=== PATIENT | male | born 1940 | race Caucasian/White ===

== ENCOUNTER → 2017-08-11 14:10 | Outpatient (CLI) | payer MEDICARE, BC, SELFPAY ==
--- NOTE | 2017-08-11 14:18 | XR_ITS ---
XR hip RT 2-3V w/pelvis HISTORY: ITS.REASON: RT HIP PAIN,RT SIDED LOW BACK PAIN ORDERING PHYSICIAN: Panda Condon MD PATIENT AGE: 77 years FINDINGS: There are moderate osteoarthritic changes of the right hip with decrease in the joint space and osteosclerosis. No fracture or dislocation. There is degenerative disc disease in the lower lumbar spine and lumbosacral junction. IMPRESSION: Osteoarthritis of the right hip. Degenerative disc disease lower lumbar spine
--- NOTE | 2017-08-11 14:18 | XR_ITS ---
EXAM: XR lumbar spine min 4V HISTORY: Low back pain ITS.REASON: RT SIDED HIP PAIN,LOW BACK PAIN W/SCIATICA ORDERING PHYSICIAN: Panda Condon MD PATIENT AGE: 77 years FINDINGS: There is degenerative disc disease at L3-L4 L4-L5 and L5-S1 with reversal of the lower lumbar lordosis. Injury osteophytes are present at those levels as well. Posterior osteophyte noted at L4-L5. Facet arthritic changes at L4-5 and L5-S1. IMPRESSION: Degenerative disc disease with facet arthritic change. There may be canal stenosis at L4-5 which may be better evaluated for with MRI if clinically
== END ==
PROVIDERS: PCP Family Medicine; Visit Provider Family Medicine
DX: M25.551 Pain in right hip (principal); M54.41 Lumbago with sciatica, right side
CPT/HCPCS: 72110; 73502

== ENCOUNTER → 2017-08-20 07:58 | Outpatient (CLI) | payer MEDICARE, BC, SELFPAY ==
--- NOTE | 2017-08-20 08:06 | MR_ITS ---
MR lumbar spine wo con, MR 3-d myelogram/MRCP HISTORY: PT states low back and rt hip and groin pain. Pain initially started back in winter and then flared back up. Gotten worse last 3 weeks. Spinal stenosis suspected from radiograph. ITS.REASON: ACUTE RT-SIDED LOW BACK PAIN, LUMBAR DDD ORDERING PHYSICIAN: Panda Condon MD PATIENT AGE: 77 years Comparison: X-RAY 08/11/17 TECHNIQUE: Standard multiplanar multiecho sequences are performed without contrast. 3-D MIP and myelographic images are also rendered and reviewed FINDINGS: Spinal cord ends at the L1 level. T11-T12: Mild facet hypertrophic change. T12-L1: Mild facet hypertrophic change with mild degenerative disc disease. L1-L2: Bulging disc with moderate facet and ligamentum hypertrophy with transverse canal stenosis causing moderate bilateral lateral recess narrowing and mild bilateral foraminal narrowing. The canal is narrowed to 7 mm transverse. L2-L3: Degenerative disc disease with bulging disc along with small left paracentral disc protrusion. There is severe facet and ligamentum flavum hypertrophy with severe right lateral recess narrowing causing compression and entrapment of the right L3 nerve root entrapment between the facet and ligamentum flavum hypertrophy and the disc best seen on axial image #20. Severe transverse canal stenosis 6 mm. L3-L4: Slight reversal of lumbar lordosis with degenerative disc disease and bulging disc along with moderate to severe facet and ligamentum hypertrophic change with bilateral lateral recess and foraminal narrowing. L4-L5: Severe degenerative disc disease with mild retrolisthesis of L4 of 4 mm with endplate hypertrophic change and bulging disc with moderate bilateral lateral recess and foraminal narrowing slightly greater on the left with borderline canal stenosis. L5-S1: Degenerative disc disease with bulging disc along with facet hypertrophy with moderate bilateral foraminal narrowing slightly greater on the left. No extruded disc herniation or acute fracture. IMPRESSION: Abnormal MRI lumbar spine with multilevel lumbar spondylosis with degenerative disc disease along with bulging disc and facet and ligamentum flavum hypertrophy. This results in varying levels of lateral recess, foraminal narrowing and canal stenosis as described above. Please see above for detailed description at each level. The most severe area of impingement is present at the L2-L3 level with Degenerative disc disease with bulging disc along with small left paracentral disc protrusion. There is severe facet and ligamentum flavum hypertrophy with severe right lateral recess narrowing causing compression and entrapment of the right L3 nerve root entrapment between the facet and ligamentum flavum hypertrophy and the disc best seen on axial image #20. Severe transverse canal stenosis 6 mm.
== END ==
PROVIDERS: Family Provider Family Medicine; PCP Family Medicine; Visit Provider Family Medicine
DX: M54.9 Dorsalgia, unspecified (principal); M51.36 Other intervertebral disc degeneration, lumbar region; M46.96 Unspecified inflammatory spondylopathy, lumbar region
CPT/HCPCS: 72148; 76376

== ENCOUNTER → 2017-08-21 13:50 | Outpatient (CLI) | payer MEDICARE, BC, SELFPAY ==
--- NOTE | 2017-08-21 13:52 | MR_ITS ---
MR hip RT wo con Ordering Physician: Panda Condon MD Patient Age: 77 years: Male HISTORY: ITS.REASON: RIGHT HIP PAIN, OSTEOARTHRITIS OF RIGHT HIP Right hip and right groin pain 3 weeks pain has gotten worse. TECHNIQUE: Multiplanar multisequence imaging of right hip including pelvis performed on 1.5 T MR COMPARISON :Plain films pelvis right hip 08/11/2017 FINDINGS Right hip. Marked arthritic changes right hip. Joint space narrowing right hip. Sclerosis is seen about this narrowed hip joint. Small joint effusion on right more so than left. RIGHT HIP with Unusual structure extending from the margin of the acetabular rim. Suspect this reflects a markedly enlarged, markedly swollen right acetabular labrum which yields nearly 18 mm axial 6.5 mm fingerlikeprotuberance from acetabular rim. & Draping over the subcapital region right femoral neck.. 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 I do not see definitive intraluminal cyst but these can occur in the setting. This likely is secondary to the patient's severe arthritic changes at the right hip. No avascular necrosis. But hip or osseous lesions otherwise. Only minimal reactive changes on both sides of the joint on this MR. No focal destructive nor LEFT HIP:. Only very Mild narrowing of joint space with more normal acetabular labrum is seen on the left hip. Left femoral head and neck are intact. I would expect to see greater signal at there is anterior labral cyst actually developing here. This structure forms a rather diffuse asymmetric area of increased signal Intrauterine labral cyst There appears to be pronounced, marked diffuse wall thickening of the urinary bladder incidentally noted. This requires correlation with urinalysis. Could reflect Bladder wall hypertrophy. Prostate does not appear to be significantly enlarged currently measuring only 4.3 cm transverse dimension.,.. Clinical correlation required. I see the patient had a markedly dilated more homogeneously mildly thickened bladder wall with trabeculation, and prominent enlarged prostate on [address] CT. IMPRESSION. 1. Severity degenerative arthritic changes right hip.-Marked joint space narrowing. Mainly sclerosis with only mild reactive changes about this narrowed right hip joint. No avascular necrosis. Small right hip joint effusion 2.. There is an unusual fingerlike structure extending from the lateral aspect the joint/acetabular rim, at RIGHT HIP- I suspect is most likely a markedly swollen and very enlarged right acetabular labrum- likely reflecting very prominent mucoid degeneration.. (Other chondral or synovial proliferation entities briefly considered but I believe less likely.) Orthopedic follow-up recommended 2. Left hip intact with only very minor arthritic changes. 3. Irregular, markedly thickened urinary bladder wall. Instantly noted 3.
== END ==
PROVIDERS: Family Provider Family Medicine; PCP Family Medicine; Visit Provider Family Medicine
DX: M25.551 Pain in right hip (principal); M16.11 Unilateral primary osteoarthritis, right hip
CPT/HCPCS: 73721

== ENCOUNTER → 2017-08-27 14:31 | Outpatient (POV) | payer MEDICARE, BC, SELFPAY | PROVIDERS: Family Provider Family Medicine; PCP Family Medicine | DX: Z00.00 Encounter for general adult medical examination without abnormal findings (principal) ==

== ENCOUNTER → 2018-02-27 14:47 | Outpatient (CLI) | payer MEDICARE, BC, SELFPAY ==
[2018-02-27 16:28] LABS: Prostate Specific Ag Screen 0.7 ng/mL (0.0-4.0)
== END ==
PROVIDERS: PCP Family Medicine; Visit Provider Urology
DX: Z12.5 Encounter for screening for malignant neoplasm of prostate (principal)
CPT/HCPCS: 36415; G0103

== ENCOUNTER → 2018-04-27 13:46 | Outpatient (POV) | payer MEDICARE, BC, SELFPAY ==
[2018-04-27 14:10] VITALS: BP 136/73; PULSE 82; RESP 18; O2SAT 98
--- NOTE | 2018-04-27 15:49 | HMH.PMCON ---
Assessment and Plan (1) Sacroiliitis Current visit: Yes Status: Chronic Category: Medical Code(s): M46.1 - Sacroiliitis, not elsewhere classified (2) Right hip pain Current visit: Yes Status: Chronic Category: Medical Code(s): M25.551 - Pain in right hip - Assessment and plan all Dx Assessment and Plan for all problems:: Patient will be set up for right SI joint injection right hip injection. I believe that this will be beneficial for the patient. He is currently on Eliquis patient and I discussed potentially doing lumbar injections as well. But we will start with SI joint injections. Dr. Webb has reviewed this note and agrees with this plan of care. This note was dictated using voice recognition software and may contain errors or omissions HPI - Data of Consult Consult date: 04/27/18 Requesting Physician: Clara Pinedo APRN Primary Care Provider: Panda Condon MD - Consult Narrative Reason for consult: Hip pain History of present illness: Mr. Encarnacion is a 77 year old male who presents today for consult in regards to his right hip pain. Patient rates his pain today a 5 out of 10. He had a right hip replacement with some moderate relief of his pain. Patient still has pain that hip joint along with groin pain and low back pain. Patient does have some numbness at times. Patient states rest decreases pain while increased activity increases pain. Patient is tried and failed naproxen, Celebrex. Patient is currently taking gabapentin. And is completed local therapy with moderate relief. Patient did have one injection in his hip prior to his hip replacement. It only helped for 1 month he states. CC: Clara Pinedo APRN [facility] History I have reviewed the patient's past medical history: Yes Medical History: Reports:: Atrial Fibrillation, Coronary Artery Disease, Diabetes Mellitus Type 2 Denies:: Diabetes Mellitus Type 1, Internal Pacemaker, Lung Disease Have you ever received a pneumonia vaccine?: No Other Medical History: Reports: Other Laterality Cases: Right: Total Hip Replacement, Total Knee Replacement Other Surgeries: Yes: Cardiac Catheterization, Other (turb,back, ). No: Pacemaker Amputation: No Fractures: No - *Social History Smoking Status: Never smoker Alcohol Intake: never Occupational Status: other Housing: house Household Members: spouse Travel in the last 8 weeks: None - Psychiatric History Expresses thoughts of harming self/others: None Suicide Plan Description: No Plan *Family Hx:: Unable to obtain Review of Systems - Review of Systems ROS General: no recent weight change, no fever, no sleep disturbances Respiratory: no cough, no shortness of air, no recurring pulmonary infections Cardiovascular/Peripheral Vascular: No chest pain, No palpitations, no edema, no shortness of breath. Gastrointestinal: no incontinence, normal bowel movements reported Genitourinary: no incontinence Musculoskeletal: Right hip pain, right SI joint pain Psychiatric: normal mood/ affect Neurological: [denies weakness in extremities], [denies balance issues] Meds Home Medications Medication Instructions Recorded Confirmed Type Apixaban [Eliquis] 5 mg PO BID 08/01/17 02/10/18 History Atorvastatin Calcium [Atorvastatin 40 mg PO DAILY 08/01/17 02/10/18 History 40mg Tab] Cyanocobalamin (Vitamin B-12) 500 mcg PO DAILY 08/01/17 02/10/18 History [Vitamin B-12] Gabapentin [Gabapentin 300mg Cap] 300 mg PO BID 08/01/17 02/10/18 History Insulin Glargine,Hum.rec.anlog 25 unit SQ BID 08/01/17 02/10/18 History [Lantus Insulin 100units/mL 10mL vial] Insulin Lispro [Humalog] 10 unit SQ ACHS 08/01/17 02/10/18 History Losartan Potassium 100 mg PO DAILY 08/01/17 02/10/18 History Metformin HCl [Fortamet] 1,000 mg PO BID 08/01/17 02/10/18 History Metoprolol Tartrate [Lopressor 25 mg PO BID 08/01/17 02/10/18 History 25mg tablet] Multivitamin [Men's Multi-Vitamin] 1 each
--- NOTE | 2018-04-27 15:52 | P.CONS_ITS ---
Assessment and Plan (1) Sacroiliitis Current visit: Yes Status: Chronic Category: Medical Code(s): M46.1 - Sacroiliitis, not elsewhere classified (2) Right hip pain Current visit: Yes Status: Chronic Category: Medical Code(s): M25.551 - Pain in right hip - Assessment and plan all Dx Assessment and Plan for all problems:: Patient will be set up for right SI joint injection right hip injection. I believe that this will be beneficial for the patient. He is currently on Eliquis patient and I discussed potentially doing lumbar injections as well. But we will start with SI joint injections. Dr. Webb has reviewed this note and agrees with this plan of care. This note was dictated using voice recognition software and may contain errors or omissions HPI - Data of Consult Consult date: 04/27/18 Requesting Physician: Clara Pinedo APRN Primary Care Provider: Panda Condon MD - Consult Narrative Reason for consult: Hip pain History of present illness: Mr. Encarnacion is a 77 year old male who presents today for consult in regards to his right hip pain. Patient rates his pain today a 5 out of 10. He had a right hip replacement with some moderate relief of his pain. Patient still has pain that hip joint along with groin pain and low back pain. Patient does have some numbness at times. Patient states rest decreases pain while increased activity increases pain. Patient is tried and failed naproxen, Celebrex. Patient is currently taking gabapentin. And is completed local therapy with moderate relief. Patient did have one injection in his hip prior to his hip replacement. It only helped for 1 month he states. CC: Clara Pinedo APRN [facility] History I have reviewed the patient's past medical history: Yes Medical History: Reports:: Atrial Fibrillation, Coronary Artery Disease, Diabetes Mellitus Type 2 Denies:: Diabetes Mellitus Type 1, Internal Pacemaker, Lung Disease Have you ever received a pneumonia vaccine?: No Other Medical History: Reports: Other Laterality Cases: Right: Total Hip Replacement, Total Knee Replacement Other Surgeries: Yes: Cardiac Catheterization, Other (turb,back, ). No: Pacemaker Amputation: No Fractures: No - *Social History Smoking Status: Never smoker Alcohol Intake: never Occupational Status: other Housing: house Household Members: spouse Travel in the last 8 weeks: None - Psychiatric History Expresses thoughts of harming self/others: None Suicide Plan Description: No Plan *Family Hx:: Unable to obtain Review of Systems - Review of Systems ROS General: no recent weight change, no fever, no sleep disturbances Respiratory: no cough, no shortness of air, no recurring pulmonary infections Cardiovascular/Peripheral Vascular: No chest pain, No palpitations, no edema, no shortness of breath. Gastrointestinal: no incontinence, normal bowel movements reported Genitourinary: no incontinence Musculoskeletal: Right hip pain, right SI joint pain Psychiatric: normal mood/ affect Neurological: [denies weakness in extremities], [denies balance issues] Meds Home Medications Medication Instructions Recorded Confirmed Type Apixaban [Eliquis] 5 mg PO BID 08/01/17 02/10/18 History Atorvastatin Calcium [Atorvastatin 40 mg PO DAILY 08/01/17 02/10/18 History 40mg Tab] Cyanocobalamin (Vitamin B-12) 500 mcg PO DAILY 08/01/17 02/10/18 History [Vitamin B-12] Gabapentin [Gabapen
== END ==
PROVIDERS: PCP Family Medicine; Visit Provider Clinical Nurse Specialist Family Health
DX: M46.1 Sacroiliitis, not elsewhere classified (principal); M25.551 Pain in right hip
CPT/HCPCS: 99202

== ENCOUNTER → 2018-06-02 10:13 | Outpatient (POV) | payer MEDICARE, BC, SELFPAY ==
[2018-06-02 10:19] VITALS: BP 148/70; PULSE 90; RESP 18; O2SAT 98; BMI 29.5
--- NOTE | 2018-06-02 10:33 | HMH.PAINSOAP ---
[facility] Pain Management SOAP Note Subjective:: Patient is a pleasant 78-year-old white male who presents today for follow-up after an SI joint injection and greater trochanteric bursa injection. Patient states that he is 90% better rating his pain a 2 out of 10. He would like to follow-up on an as-needed basis. Patient states that he is doing much better functionally. ROS General: no recent weight change, no fever, no sleep disturbances Respiratory: no cough, no shortness of air, no recurring pulmonary infections Cardiovascular/Peripheral Vascular: No chest pain, No palpitations, no edema, no shortness of breath. Gastrointestinal: no incontinence, normal bowel movements reported Genitourinary: no incontinence Musculoskeletal: Right hip pain Psychiatric: normal mood/ affect Neurological: [denies weakness in extremities], [denies balance issues] Objective:: Physical Exam General: Alert and oriented x3, no acute distress, pleasant and cooperative, [on room air] Lungs: Resps E/U, Symmetrical chest expansion, Eyes: PERRL Musculoskeletal: Flexion and extension of lumbar spine somewhat guarded secondary to pain, deep tendon reflexes normal, strength in upper and lower extremities [5/5], slightly antalgic gait noted Neurological: speech clear, instrumentation technician equal, no gross sensory deficits Assessment:: Sacroiliitis, bursitis, right hip pain Plan:: We will follow-up with the patient on an as-needed basis. We will reassess his symptoms if he needs them. He has been instructed to call the office if his pain worsens. Dr. Webb has reviewed this note and agrees with this plan of care. This note was dictated using voice recognition software and may contain errors or omissions
--- NOTE | 2018-06-02 10:36 | P.CONS_ITS ---
[facility] Pain Management SOAP Note Subjective:: Patient is a pleasant 78-year-old white male who presents today for follow-up after an SI joint injection and greater trochanteric bursa injection. Patient states that he is 90% better rating his pain a 2 out of 10. He would like to follow-up on an as-needed basis. Patient states that he is doing much better functionally. ROS General: no recent weight change, no fever, no sleep disturbances Respiratory: no cough, no shortness of air, no recurring pulmonary infections Cardiovascular/Peripheral Vascular: No chest pain, No palpitations, no edema, no shortness of breath. Gastrointestinal: no incontinence, normal bowel movements reported Genitourinary: no incontinence Musculoskeletal: Right hip pain Psychiatric: normal mood/ affect Neurological: [denies weakness in extremities], [denies balance issues] Objective:: Physical Exam General: Alert and oriented x3, no acute distress, pleasant and cooperative, [on room air] Lungs: Resps E/U, Symmetrical chest expansion, Eyes: PERRL Musculoskeletal: Flexion and extension of lumbar spine somewhat guarded secondary to pain, deep tendon reflexes normal, strength in upper and lower extremities [5/5], slightly antalgic gait noted Neurological: speech clear, sterilization specialist equal, no gross sensory deficits Assessment:: Sacroiliitis, bursitis, right hip pain Plan:: We will follow-up with the patient on an as-needed basis. We will reassess his symptoms if he needs them. He has been instructed to call the office if his pain worsens. Dr. Webb has reviewed this note and agrees with this plan of care. This note was dictated using voice recognition software and may contain errors or omissions
== END ==
PROVIDERS: PCP Family Medicine; Visit Provider Clinical Nurse Specialist Family Health
DX: M46.1 Sacroiliitis, not elsewhere classified (principal); M25.551 Pain in right hip; M71.9 Bursopathy, unspecified
CPT/HCPCS: 99213

== ENCOUNTER → 2018-08-21 13:25 | Outpatient (CLI) | payer MEDICARE, BC, SELFPAY ==
--- NOTE | 2018-08-21 13:31 | US_ITS ---
US Arterial Ankle Brachial Ind History: Bilateral rest pain, bilateral claudication ORDERING PHYSICIAN: Serafin Grullon PATIENT AGE: 78 years TECHNIQUE: Segmental pressures obtained of both right and left leg. These are compared to brachial blood pressure to yield index at each level sampled including summary RUSS. The data sheets from the procedure are available in PACS FINDINGS Rest study only performed today No prior studies available for comparison. Blood pressures reported are in millimeters mercury. RIGHT LEG RUSS = 1.1. RIGHT LEG TBI=0.7 Brachial BP: 151 Thigh BP: 186 Calf BP: 165 Ankle PT: 166 Ankle DP : 167 Digit =112 LEFT LEG RUSS = 1.0 LEFT LEG TBI= 0.8 Brachial BPD: 147 Thigh BP: 201 Calf BP: 157 Ankle PT:152 Ankle DP: 152 Digit = 118 Pulses and waveforms: Normal IMPRESSION: The ABIs as reported above are within normal limits. Waveforms and pulses are also unremarkable.
== END ==
PROVIDERS: PCP Family Medicine; Visit Provider Podiatrist
DX: I70.213 Atherosclerosis of native arteries of extremities with intermittent claudication, bilateral legs (principal); E11.42 Type 2 diabetes mellitus with diabetic polyneuropathy; Z79.4 Long term (current) use of insulin; Z79.84 Long term (current) use of oral hypoglycemic drugs
CPT/HCPCS: 93922

== ENCOUNTER 2018-12-20 03:25 | Inpatient (IN) ==
[2018-12-20 03:57] LABS: Microscopic, Urine URINE MICROSCOPIC (MICROSCOPIC)
[2018-12-20 04:02] LABS: Appearance,Urine CLEAR (Clear); Bilirubin,Urine Negative (Negative); Blood, Urine Negative (Negative); Color,Urine YELLOW (Yellow); Glucose,Urine (UA) 1+ (Negative); Ketones,Urine Negative (Negative); Leukocyte Esterase,Urine Negative (Negative); Protein,Urine Negative (Negative); Urobilinogen,Urine 0.2 EU/dl (0.2)
[2018-12-20 04:02] LABS: Basophils # 0.1 K/mm3 (0-0.2); Basophils % 0.7 % (0.1-2.0); Eosinophils # 0.8 K/mm3 (0.0-0.4); Eosinophils % 7.9 % (0.1-12.0); Hematocrit 47.9 % (42.0-52.0); Hemoglobin 14.8 g/dL (14.1-18.0); Lymphocytes # 4.2 K/mm3 (0.7-4.5); Mean Corpuscular HGB Conc 30.9 g/dL (31.8-35.4); Mean Corpuscular Volume 101.9 fl (80-94); Mean Platelet Volume 8.9 fl (7.4-10.4); Monocytes # 0.5 K/mm3 (0.1-1.0); Monocytes % 4.5 % (1.7-9.3); Neutrophils % 46.9 % (37.0-80.0); Platelet Count 162 K/mm3 (142-424); Red Cell Distribution Width 13.4 % (11.5-17.5); White Blood Count 10.6 K/mm3 (4.8-10.8)
[2018-12-20 04:07] LABS: WBC,Urine Occasional #/hpf (0-3)
[2018-12-20 04:09] LABS: Amphetamine/Metha Screen,Urine Negative ng/mL (<1000); Barbiturates Screen,Urine Negative ng/mL (<200); Benzodiazepines Screen,Urine Negative ng/mL (<200); Cannabinoid Screen,Urine Negative ng/mL (<50); Cocaine Screen,Urine Negative ng/mL (<300); Methadone Screen,Urine Negative ng/mL (<300); Opiate Screen,Urine Negative ng/mL (<300); Phencyclidine Screen,Urine Negative ng/mL (<25)
[2018-12-20 04:12] LABS: Albumin Level 3.3 gm/dL (3.4-5.0); Anion Gap 16.6 mEq/L (5-15); Bilirubin,Total 0.4 mg/dL (0.2-1.0); Calcium 9.1 mg/dL (8.5-10.1); Globulin 3.3 gm/dl (1.3-3.2); Total Protein,Serum 6.6 gm/dL (6.4-8.2)
--- NOTE | 2018-12-20 04:24 | Emergency Department Note ---
ED Disposition Clinical Impression: Non-STEMI (non-ST elevated myocardial infarction), Renal insufficiency Disposition: Admitted as Observation Condition on Discharge: Serious - Critical Care Critical Care Time: No Attestation: On 12/20/18, the high probability of a clinically significant, sudden or life threatening deterioration of the following system(s) required my full and direct attention, intervention and personal management. The time I documented below is in addition to time spent performing reported procedures but includes the following listed in this critical care notation. Medical Decision Making - Medical Records Medical records reviewed: Yes: I reviewed the patient's medical records. - Néstor Inquiry Pt receiving controlled substance: No Vital Signs: 12/20/18 03:26 12/20/18 06:26 Temperature 97.5 F L Temperature Source Oral Pulse Rate [Left Radial] 83 85 Respiratory Rate 18 20 Blood Pressure [Right Arm] 131/86 107/69 L Blood Pressure Mean [Right Arm] 101 81 Blood Pressure Source [Right Arm] Automatic Cuff Automatic Cuff Blood Pressure Position [Right Arm] Sitting Supine 02 Sat by Pulse Oximetry 95 95 Oxygen Delivery Method Room Air Room Air - Lab Data Lab results reviewed: Yes: I reviewed the patient's lab results. Lab Results 12/20/18 03:45: Urine Color Yellow, Urine Appearance Clear, Urine pH 6.0, Ur Specific [place] 1.010, Urine Protein Negative, Urine Glucose (UA) 1+, Urine Ketones Negative, Urine Blood Negative, Urine Nitrate Negative, Urine Bilirubin Negative, Urine Urobilinogen 0.2, Ur Leukocyte Esterase Negative, Urine WBC Occasional 12/20/18 03:46: WBC 10.6, RBC 4.70, Hgb 14.8, Hct 47.9, MCV 101.9 H, MCH 31.4 H, MCHC 30.9 L, RDW 13.4, Plt Count 162, MPV 8.9, Neut % (Auto) 46.9, Lymph % (Auto) 40.0, [place] % (Auto) 4.5, Eos % (Auto) 7.9, Baso % (Auto) 0.7, Neut # (Auto) 5.0, Lymph # (Auto) 4.2, [place] # (Auto) 0.5, Eos # (Auto) 0.8 H, Baso # (Auto) 0.1 12/20/18 03:46: Sodium 140, Potassium 3.6, Chloride 101, Carbon Dioxide 26, Anion Gap 16.6 H, BUN 20 H, Creatinine 1.50 H, Estimated Creat Clear 56, Estimated GFR 45 L, Est GFR ( Amer) 55 L, Glucose 315 H, Calcium 9.1, Total Bilirubin 0.4, AST 33, ALT 29, Alkaline Phosphatase 119 H, Total Protein 6.6, Albumin 3.3 L, Globulin 3.3 H, Albumin/Globulin Ratio 1.0 L 12/20/18 03:46: Urine Opiates Screen Negative, Urine Methadone Screen Negative, Ur Barbituates Screen Negative, Ur Phencyclidine Scrn Negative, Ur Amphetamines Screen Negative, U Benzodiazepines Scrn Negative, Urine Cocaine Screen Negative, U Marijuana (THC) Screen Negative 12/20/18 03:46: Troponin I 0.16 H 12/20/18 05:38: Troponin I 2.98 H Result diagrams: 12/20/18 03:46 12/20/18 03:46 Orders (Tests/Meds): ED MEDICATIONS Discontinued Medications Generic Name Dose Route Start Last Admin Trade Name Marina PRN Reason Stop Dose Admin Aspirin 324 mg 12/20/18 04:29 12/20/18 04:44 Aspirin 81mg Chewable Tablet PO 12/20/18 04:30 324 mg ONCE ONE Administration Nitroglycerin 1 gm 12/20/18 04:29 12/20/18 04:45 Nitroglycerin 1 Inch Oint Udp TD 12/20/18 04:30 1 gm ONCE ONE Administration ORDERS Category Date Time Status CT head/brain wo con Stat Cat Scan 12/20/18 03:35 Taken Chest XR -- portable [XR chest portable] Stat Exams 12/20/18 04:17 Taken ECG Request by /Constantino Stat Y 12/20/18 03:34 Ordered - Radiology Data #1 Image(s): Chest Image Reviewed: Yes I reviewed the patient's radiology image Preliminary Findings: Abnormal (prob chronic changes ) - ECG Data Tracing #1 Normal Sinus Rhythm: Yes Ischemic changes: non-specific ST-T wave changes Tracing #2 Normal Sinus Rhythm: Yes Ischemic changes: other (septal changes) Tracing #3 Normal Sinus Rhythm: Yes Ischemic changes: other (septal changes ) - Physician Consults Physician Consulted: michael Reason -: Pt condition Additional Consult: suzy Reason -: Admission Chest Pain HPI - General Chief Complaint: Altered Mental Status Stated Complaint: AMS Time Seen by Provider: 12/20/18 03:40 Mode of Arrival: EMS Source of Information: Patient, Spouse, Relative, EMS, Medical Record Limitations: No Limitations Description of Symptoms (Recalled from ER Triage Doc. by RN): states he woke up feeling "funny". He can't explain what that feeling is but he knows he is dif ferent. Denies any issues at this time. "Thinks he is at the hospital." - History of Present Illness HPI narrative: pt awoke about 0230 with chest pain with nausea and diaphoresis - last about 20 min and had near syncope assoc with episode - has hx of a fib and stent about 8 yrs ago MD complaint: chest pain indicative of cardiac Onset (ago): hour(s) Duration: now resolved Activity at onset: during rest Pain location: substernal Severity: severe Quality: heaviness Risk Factors for CAD: Hypertension, Family Hx of CAD Treatments prior to or on arrival for Cardiac Chest Pain: none - SHAYY Score for Non-Stemi Age of Patient: 70-79 years old Heart Rate: 70-89 bpm Systolic Blood Pressure: 120-139 mmhg Serum Creatinine: 1.20-1.59 mg/dl CHF [place] Class: I-No CHF Other Risk Factors: Elevated Cardiac Enzymes or Biomarkers Non-Stemi Risk Score: 142 - Related Data Prior Cardiac Testing/Procedures: Stenting Home Medications Medication Instructions Recorded Confirmed Apixaban [Eliquis] 5 mg PO BID 08/01/17 12/20/18 Atorvastatin Calcium [Atorvastatin 40 mg PO DAILY 08/01/17 12/20/18 40mg Tab] Cyanocobalamin (Vitamin B-12) 500 mcg PO DAILY 08/01/17 12/20/18 [Vitamin B-12] Gabapentin [Gabapentin 300mg Cap] 300 mg PO BID 08/01/17 12/20/18 Insulin Glargine,Hum.rec.anlog 25 unit SQ BID 08/01/17 12/20/18 [Lantus Insulin 100units/mL 10mL vial] Insulin Lispro [Humalog] 10 unit SQ ACHS 08/01/17 12/20/18 Losartan Potassium 100 mg PO DAILY 08/01/17 12/20/18 Metformin HCl [Fortamet] 1,000 mg PO BID 08/01/17 12/20/18 Metoprolol Tartrate [Lopressor 25 mg PO BID 08/01/17 12/20/18 25mg tablet] Multivitamin [Men's Multi-Vitamin] 1 each PO DAILY 08/01/17 12/20/18 Naproxen [Naproxen 500mg tab] 500 mg PO BID 08/01/17 12/20/18 Pantoprazole Sodium [Protonix 40mg 40 mg PO DAILY 08/01/17 12/20/18 tablet] Polyethylene Glycol 3350 [Miralax 17 gm PO DAILY 08/01/17 12/20/18 17gm Packet] Psyllium Husk [Metamucil] 0.4 gm PO DAILY 08/01/17 12/20/18 Allergies Allergy/AdvReac Type Severity Reaction Status Date / Time peanut Allergy Unknown syncope Verified 05/05/18 14:14 [From PEANUTS (FOOD/DRUG)] From PEANUTS (FOOD/DRUG) Allergy Unknown syncope Uncoded 02/10/18 11:09 [facility] History - Hepatitis A Screen Drug use history?: No High risk sexual behaviors?: No History of sexually transmitted infection?: No Currently employed?: No Childcare worker?: No Do you have indoor plumbing?: Yes Do you have electricity?: Yes Attestation statement:: This patient has been screened for Hepatitis A risk factors. I have reviewed the patient's past medical history: Yes Medical History: Reports:: Atrial Fibrillation, Coronary Artery Disease, Diabetes Mellitus Type 2, Hyperlipidemia, Hypertension Denies:: Cancer, Diabetes Mellitus Type 1, Internal Pacemaker, Lung Disease, MRSA, Seizures Other Medical History: Reports: Arthritis, Other Laterality Cases: Right: Total Hip Replacement Other Surgeries: Yes: Cardiac Catheterization, Other (turb,back, ). No: Pacemaker Amputation: No Fractures: No - Social History Smoking Status: Never smoker Alcohol Intake: never Occupational Status: retired Housing: house Household Members: spouse Family Hx:: Unable to obtain ROS Obtained: Yes All systems reviewed & no additional complaints - Constitutional Constitutional: Denies fever(s) - Eyes Eyes: Denies change in vision - ENT Ears, Nose, Mouth, and Throat: Denies sore throat - Cardiovascular Cardiovascular: Reports chest pain, Reports dyspnea, Reports lightheadedness - Respiratory Respiratory: No cough - Gastrointestinal Gastrointestingal: Denies: abdominal pain - Genitourinary Male Genitourinary: Denies hematuria - Musculoskeletal Musculoskeletal: Denies joint pain, Denies joint swelling - Integumentary/Breasts Skin/Breast: Denies rash - Neurologic Neurologic: Reports as per HPI, Reports confusion, Reports dizziness, Denies focal weakness, Denies loss of vision, Denies seizure-like activity, Reports syncope Physical Exam - General General appearance: in no apparent distress - Head Head exam: normocephalic - Eye Eye exam: Present: PERRL, EOMI. Absent: scleral icterus - ENT ENT exam: Present: mucous membranes dry - Neck Neck exam: Present: trachea midline - Respiratory Respiratory exam: Present: normal lung sounds bilaterally. Absent: respiratory distress - Cardiovascular Cardiovascular exam: Present: regular rate, systolic murmur, +S4 - Abdominal Exam Abdominal exam: Present: soft - Extremities Exam Extremities exam: Present: pedal edema. Absent: calf tenderness - Neurological Exam Neurological exam: Present: alert, oriented X3, CN II-XII intact - Psychiatric Psychiatric exam: Present: normal affect - Skin Skin exam: Absent: rash
--- NOTE | 2018-12-20 09:32 | Pharmacy Consult Notes ---
[facility] Pharmacy VTE Monitoring - Patient Demographics Admission date: 12/20/18 Report Date: 12/20/18 Time: 09:32 Allergies/Adverse Reactions: Patient Allergies peanut [From PEANUTS (FOOD/DRUG)] Allergy (Unknown, Verified 12/20/18 07:23) syncope Height: 1.88 m Weight: 102.285 kg Patient Problems: Current Active Problems Non-STEMI (non-ST elevated myocardial infarction) (Acute) Renal insufficiency (Acute) - VTE Risk Labs: VTE Related Lab Results Hgb 14.8 g/dL (14.1-18.0) 12/20/18 03:46 Hct 47.9 % (42.0-52.0) 12/20/18 03:46 Plt Count 162 K/mm3 (142-424) 12/20/18 03:46 BUN 20 mg/dL (7-18) H 12/20/18 03:46 Creatinine 1.50 mg/dL (0.70-1.30) H 12/20/18 03:46 Estimated Creat Clear 56 mL/min (50-200) 12/20/18 03:46 Was VTE Risk Assessment Performed: Yes VTE Score: 4 VTE Risk Level: Low Risk - Prophylaxis VTE Prophylaxis Ordered?: Yes Types of VTE Prophylaxis: TEDS Knee High Location of Applied Device: Bilateral Lower Extremeties - VTE Diagnosis Confirmed Treatment or plan recommended: Continue Current Treatment
--- NOTE | 2018-12-20 11:39 | H&P/Discharge Summary ---
General - General Admission date:: 12/20/18 Discharge date: 12/20/18 *Admission Date: 12/20/18 *Chief complaint: Chest pain *History of present illness: 78 year old male with a history of CAD and DM type 2 presented to [facility] ER overnight complaining of chest pain. Patient was awoken from sleep at 2:30 this morning with substernal chest pain, coughing and diaphoresis. He tried to get out of bed and almost passed out. EMS was called and he was brought to the ER. Pain was alleviated with NTG and morphine in the ER. He states he felt fine when he went to bed last night and has had no recent health problems. 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 He takes [employer] for A. fib [facility] History Medical History: Reports:: Atrial Fibrillation, Cancer (skin cancer), Coronary Artery Disease, Diabetes Mellitus Type 2, Hyperlipidemia, Hypertension Denies:: Diabetes Mellitus Type 1, Internal Pacemaker, Lung Disease, MRSA, Seizures *Have you ever received a pneumonia vaccine?: Yes *Have you received a flu vaccine this season?: No Other Medical History: Reports: Arthritis, Cataracts, Other Laterality Cases: Right: Total Hip Replacement, Total Knee Replacement, Bilateral: Cataract Other Surgeries: Yes: Cardiac Catheterization, Colonoscopy, EGD, Skin Cancer Excision, Other (low back disc surgery, TURP). No: Pacemaker Amputation: No Fractures: No - *Social History Educational Level: Attended College Smoking Status: Former smoker Tobacco Type: cigarettes # Packs/Day (cigarettes): 1 Alcohol Intake: current Alcohol Intake Frequency:: holidays/special occasions only *Occupational Status:: retired Housing: house Household Members: spouse *Travel in the last 8 weeks: None Family Hx:: Coronary Artery Disease, Diabetes, Hypertension, Stroke Review of Systems - Constitutional Denies fever(s) - Eyes Denies blurry vision - ENT Denies bleeding gums - *Cardiovascular Reports chest pain - *Respiratory Reports cough - *Gastrointestinal Denies abdominal pain - *Genitourinary Denies difficulty urinating - *Musculoskeletal Denies joint swelling - Integumentary/Breasts Denies rash - *Neurologic Reports dizziness, Reports fainting, Denies localized weakness, Denies loss of vision, Denies seizure-like activity - Psychiatric Denies irritability - Hematologic/Lymphatic Denies easy bleeding Exam Vital signs and Labs for Last 24 Hours: Temp Pulse Resp BP Pulse Ox 98.3 F 93 H 18 114/74 95 12/20/18 08:00 12/20/18 08:00 12/20/18 08:00 12/20/18 08:00 12/20/18 08:00 Laboratory Results - last 24 hr 12/20/18 03:45: Urine Color Yellow, Urine Appearance Clear, Urine pH 6.0, Ur Specific [place] 1.010, Urine Protein Negative, Urine Glucose (UA) 1+, Urine Ketones Negative, Urine Blood Negative, Urine Nitrate Negative, Urine Bilirubin Negative, Urine Urobilinogen 0.2, Ur Leukocyte Esterase Negative, Urine WBC Occasional 12/20/18 03:46: WBC 10.6, RBC 4.70, Hgb 14.8, Hct 47.9, MCV 101.9 H, MCH 31.4 H, MCHC 30.9 L, RDW 13.4, Plt Count 162, MPV 8.9, Neut % (Auto) 46.9, Lymph % (Auto) 40.0, [place] % (Auto) 4.5, Eos % (Auto) 7.9, Baso % (Auto) 0.7, Neut # (Auto) 5.0, Lymph # (Auto) 4.2, [place] # (Auto) 0.5, Eos # (Auto) 0.8 H, Baso # (Auto) 0.1 12/20/18 03:46: Sodium 140, Potassium 3.6, Chloride 101, Carbon Dioxide 26, Anion Gap 16.6 H, BUN 20 H, Creatinine 1.50 H, Estimated Creat Clear 56, Estimated GFR 45 L, Est GFR ( Amer) 55 L, Glucose 315 H, Calcium 9.1, Total Bilirubin 0.4, AST 33, ALT 29, Alkaline Phosphatase 119 H, Total Protein 6.6, Albumin 3.3 L, Globulin 3.3 H, Albumin/Globulin Ratio 1.0 L 12/20/18 03:46: Urine Opiates Screen Negative, Urine Methadone Screen Negative, Ur Barbituates Screen Negative, Ur Phencyclidine Scrn Negative, Ur Amphetamines Screen Negative, U Benzodiazepines Scrn Negative, Urine Cocaine Screen Negative, U Marijuana (THC) Screen Negative 12/20/18 03:46: Troponin I 0.16 H 09/22/19 05:38: Troponin I 2.98 H 12/20/18 11:07: POC Glucose 177 H Vital Signs - 24 hr 12/20/18 03:26 12/20/18 06:26 12/20/18 07:00 Temperature 97.5 F L Pulse Rate Pulse Rate [Left Radial] 83 85 90 Respiratory Rate 18 20 Blood Pressure Blood Pressure [Right Arm] 131/86 107/69 L 161/80 H 02 Sat by Pulse Oximetry 95 95 97 12/20/18 07:28 12/20/18 07:47 12/20/18 08:00 Temperature 98.0 F 98.3 F Pulse Rate 85 Pulse Rate [Left Radial] 83 93 H Respiratory Rate 19 18 Blood Pressure 158/97 H Blood Pressure [Right Arm] 156/82 H 114/74 02 Sat by Pulse Oximetry 96 95 I & O for Last 24 hours: Intake & Output 12/17/18 12/18/18 12/19/18 12/20/18 23:59 23:59 23:59 23:59 Weight 225 lb 8 oz - Constitutional no acute distress - *Routine HEENT Exam Head: Present: normocephalic Eye: Present: EOMI, PERRL ENT: Present: mucous membranes moist - *Routine Neck Exam Present: supple. Absent: lymphadenopathy - *Routine Respiratory Exam Present: CTA bilaterally - *Routine Cardiovascular Exam Present: RRR - *Routine Abdominal Exam Present: soft, normoactive bowel sounds. Absent: tenderness - *Routine Extremities Exam Absent: cyanosis, clubbing, edema - *Routine Skin Exam Present: warm. Absent: rash - *Routine Neurological Exam Present: alert, oriented X3 Hospital Course Hospital Course: Patient was admitted to [facility] pending a bed being available at [facility]. He was treated with NTG, aspirin and beta blockers for his NSTEMI. He has remained chest pain free. Results Labs on day of discharge: Labs from last 24 hours 12/20/18 12/20/18 12/20/18 11:07 05:38 03:46 WBC RBC Hgb Hct MCV MCH MCHC RDW Plt Count MPV Neut % (Auto) Lymph % (Auto) [place] % (Auto) Eos % (Auto) Baso % (Auto) Neut # (Auto) Lymph # (Auto) [place] # (Auto) Eos # (Auto) Baso # (Auto) Sodium Potassium Chloride Carbon Dioxide Anion Gap BUN Creatinine Estimated Creat Clear Estimated GFR Est GFR ( Amer) Glucose POC Glucose 177 H Calcium Total Bilirubin AST ALT Alkaline Phosphatase Troponin I 2.98 H 0.16 H Total Protein Albumin Globulin Albumin/Globulin Ratio Urine Color Urine Appearance Urine pH Ur Specific [place] Urine Protein Urine Glucose (UA) Urine Ketones Urine Blood Urine Nitrate Urine Bilirubin Urine Urobilinogen Ur Leukocyte Esterase Urine WBC Urine Opiates Screen Urine Methadone Screen Ur Barbituates Screen Ur Phencyclidine Scrn Ur Amphetamines Screen U Benzodiazepines Scrn Urine Cocaine Screen U Marijuana (THC) Screen 12/20/18 12/20/18 12/20/18 03:46 03:46 03:46 WBC 10.6 RBC 4.70 Hgb 14.8 Hct 47.9 MCV 101.9 H MCH 31.4 H MCHC 30.9 L RDW 13.4 Plt Count 162 MPV 8.9 Neut % (Auto) 46.9 Lymph % (Auto) 40.0 [place] % (Auto) 4.5 Eos % (Auto) 7.9 Baso % (Auto) 0.7 Neut # (Auto) 5.0 Lymph # (Auto) 4.2 [place] # (Auto) 0.5 Eos # (Auto) 0.8 H Baso # (Auto) 0.1 Sodium 140 Potassium 3.6 Chloride 101 Carbon Dioxide 26 Anion Gap 16.6 H BUN 20 H Creatinine 1.50 H Estimated Creat Clear 56 Estimated GFR 45 L Est GFR ( Amer) 55 L Glucose 315 H POC Glucose Calcium 9.1 Total Bilirubin 0.4 AST 33 ALT 29 Alkaline Phosphatase 119 H Troponin I Total Protein 6.6 Albumin 3.3 L Globulin 3.3 H Albumin/Globulin Ratio 1.0 L Urine Color Urine Appearance Urine pH Ur Specific [place] Urine Protein Urine Glucose (UA) Urine Ketones Urine Blood Urine Nitrate Urine Bilirubin Urine Urobilinogen Ur Leukocyte Esterase Urine WBC Urine Opiates Screen Negative Urine Methadone Screen Negative Ur Barbituates Screen Negative Ur Phencyclidine Scrn Negative Ur Amphetamines Screen Negative U Benzodiazepines Scrn Negative Urine Cocaine Screen Negative U Marijuana (THC) Screen Negative 12/20/18 03:45 WBC RBC Hgb Hct MCV MCH MCHC RDW Plt Count MPV Neut % (Auto) Lymph % (Auto) [place] % (Auto) Eos % (Auto) Baso % (Auto) Neut # (Auto) Lymph # (Auto) [place] # (Auto) Eos # (Auto) Baso # (Auto) Sodium Potassium Chloride Carbon Dioxide Anion Gap BUN Creatinine Estimated Creat Clear Estimated GFR Est GFR ( Amer) Glucose POC Glucose Calcium Total Bilirubin AST ALT Alkaline Phosphatase Troponin I Total Protein Albumin Globulin Albumin/Globulin Ratio Urine Color Yellow Urine Appearance Clear Urine pH 6.0 Ur Specific [place] 1.010 Urine Protein Negative Urine Glucose (UA) 1+ Urine Ketones Negative Urine Blood Negative Urine Nitrate Negative Urine Bilirubin Negative Urine Urobilinogen 0.2 Ur Leukocyte Esterase Negative Urine WBC Occasional Urine Opiates Screen Urine Methadone Screen Ur Barbituates Screen Ur Phencyclidine Scrn Ur Amphetamines Screen U Benzodiazepines Scrn Urine Cocaine Screen U Marijuana (THC) Screen DS: Diagnosis - Discharge Diagnosis (1) CAD (coronary artery disease) Status: Acute (2) Diabetes type 2, controlled Status: Acute (3) Atrial fibrillation Status: Acute (4) History of CVA (cerebrovascular accident) Status: Acute (5) HTN (hypertension) Status: Acute (6) GERD (gastroesophageal reflux disease) Status: Acute (7) Hyperlipidemia Status: Acute (8) Non-STEMI (non-ST elevated myocardial infarction) Status: Acute (9) Renal insufficiency Status: Acute Discharge Plan - Patient Discharge Instructions ACTIVITY: Continue current activity DIET: continue same diet Patient Instructions: DI for Chest Pain, DI for Heart Attack - Follow up Plan Follow up with: Panda Condon MD [Primary Care Provider] - Disposition: Xfer Short-Term Hosp Home Medications: Home Medications Medication Instructions Recorded Confirmed Type Apixaban [Eliquis] 5 mg PO BID 08/01/17 12/20/18 History Atorvastatin Calcium [Atorvastatin 40 mg PO HS 08/01/17 12/20/18 History 40mg Tab] Cyanocobalamin (Vitamin B-12) 500 mcg PO DAILY 08/01/17 12/20/18 History [Vitamin B-12] Gabapentin [Gabapentin 300mg Cap] 300 mg PO BID 08/01/17 12/20/18 History Insulin Glargine,Hum.rec.anlog 25 unit SQ BID 08/01/17 12/20/18 History [Lantus Insulin 100units/mL 10mL vial] Insulin Lispro [Humalog] 10 unit SQ AC 08/01/17 12/20/18 History Metoprolol Tartrate [Lopressor 25 mg PO BID 08/01/17 12/20/18 History 25mg tablet] Naproxen [Naproxen 500mg tab] 500 mg PO BID 08/01/17 12/20/18 History Pantoprazole Sodium [Protonix 40mg 40 mg PO DAILY 08/01/17 12/20/18 History tablet] Polyethylene Glycol 3350 [Miralax 17 gm PO DAILYP PRN 08/01/17 12/20/18 History 17gm Packet] Psyllium Husk [Metamucil] 0.4 gm PO DAILYP PRN 08/01/17 12/20/18 History Cholecalciferol (Vitamin D3) 5,000 unit PO DAILY 12/20/18 12/20/18 History [Vitamin D3] Losartan Potassium 100 mg PO DAILY 12/20/18 12/20/18 History Metformin HCl [Metformin 1000mg 1,000 mg PO BID 12/20/18 12/20/18 History Tablets] Multivitamin [Multivitamins] 1 each PO DAILY 12/20/18 12/20/18 History Prescriptions/Medication Reconciliation: Continued Metoprolol Tartrate [Lopressor 25mg tablet] 25 mg PO BID Psyllium Husk [Metamucil] 0.4 gm PO DAILYP PRN PRN Reason: Constipation Polyethylene Glycol 3350 [Miralax 17gm Packet] 17 gm PO DAILYP PRN PRN Reason: Constipation Naproxen [Naproxen 500mg tab] 500 mg PO BID Insulin Lispro [Humalog] 10 unit SQ AC Insulin Glargine,Hum.rec.anlog [Lantus Insulin 100units/mL 10mL vial] 25 unit SQ BID Gabapentin [Gabapentin 300mg Cap] 300 mg PO BID Cyanocobalamin (Vitamin B-12) [Vitamin B-12] 500 mcg PO DAILY Atorvastatin Calcium [Atorvastatin 40mg Tab] 40 mg PO HS Apixaban [Eliquis] 5 mg PO BID Multivitamin [Multivitamins] 1 each PO DAILY Losartan Potassium 100 mg PO DAILY Metformin HCl [Metformin 1000mg Tablets] 1,000 mg PO BID Cholecalciferol (Vitamin D3) [Vitamin D3] 5,000 unit PO DAILY Pantoprazole Sodium [Protonix 40mg tablet] 40 mg PO DAILY - Problem Reconciliation Problems Reviewed?: Yes
--- NOTE | 2018-12-20 15:35 | Electrocardiograph Report ---
APPROVED REPORT Exam: Resting ECG HR:89 bpm ECG Measurements Heart Rate 89 AXES MS 200 P 71 QRSd 118 QRS -52 QT 378 T87 QTc 459 <Conclusion> Sinus rhythm with sinus arrhythmia with frequent premature ventricular complexes Left anterior fascicular block Left ventricular hypertrophy with QRS widening Cannot rule out Septal infarct, age undetermined Abnormal ECG Electronically signed by : Jon Perez, 12/20/2018 15:35:11
--- NOTE | 2018-12-20 15:35 | Electrocardiograph Report ---
APPROVED REPORT Exam: Resting ECG HR:91 bpm ECG Measurements Heart Rate 91 AXES MT 174 P 57 QRSd 118 QRS -51 QT 382 T60 QTc 469 <Conclusion> Sinus rhythm with occasional premature ventricular complexes Left anterior fascicular block Left ventricular hypertrophy with QRS widening Abnormal ECG Electronically signed by : Jon Perez, 12/20/2018 15:35:29
--- NOTE | 2018-12-20 15:35 | Electrocardiograph Report ---
APPROVED REPORT Exam: Resting ECG HR:85 bpm ECG Measurements Heart Rate 85 AXES [place] 174 P 51 QRSd 130 QRS -47 QT 414 T73 QTc 492 <Conclusion> Sinus rhythm with premature atrial complexes with aberrant conduction Left axis deviation Left ventricular hypertrophy with QRS widening and repolarization abnormality Abnormal ECG Electronically signed by : Jon Perez, 12/20/2018 15:35:35
[2018-12-21 03:56] LABS: Basophils % 0.3 % (0.1-2.0); Eosinophils # 0.7 K/mm3 (0.0-0.4); Eosinophils % 6.9 % (0.1-12.0); Hematocrit 39.4 % (42.0-52.0); Lymphocytes # 1.9 K/mm3 (0.7-4.5); Lymphocytes % 19.8 % (10-50); Mean Corpuscular Volume 98.1 fl (80-94); Mean Platelet Volume 8.8 fl (7.4-10.4); Monocytes # 0.5 K/mm3 (0.1-1.0); Monocytes % 5.3 % (1.7-9.3); Neutrophils # 6.4 K/mm3 (1.8-7.8); Neutrophils % 67.6 % (37.0-80.0); Platelet Count 123 K/mm3 (142-424); Red Blood Count 4.02 M/mm3 (4.60-6.20); Red Cell Distribution Width 13.5 % (11.5-17.5); White Blood Count 9.4 K/mm3 (4.8-10.8)
[2018-12-21 03:58] LABS: Calcium 8.4 mg/dL (8.5-10.1)
[2018-12-21 04:09] LABS: Hemoglobin 12.6 g/dL (14.1-18.0)
--- NOTE | 2018-12-21 08:18 | Pharmacy Consult Notes ---
[facility] Pharmacy Heparin Dosing - Demographic Data Admission date:: 12/20/18 Date: 12/21/18 Time: 08:15 Allergies/Adverse Reactions: Allergies Allergy/AdvReac Type Severity Reaction Status Date / Time peanut Allergy Unknown syncope Verified 12/20/18 07:23 [From PEANUTS (FOOD/DRUG)] Height: 1.88 m Weight: 104.355 kg - Indication Medication therapy:: Heparin Patient Problems: Current Active Problems Non-STEMI (non-ST elevated myocardial infarction) (Acute) Renal insufficiency (Acute) CAD (coronary artery disease) (Acute) Diabetes type 2, controlled (Acute) Atrial fibrillation (Acute) History of CVA (cerebrovascular accident) (Acute) HTN (hypertension) (Acute) GERD (gastroesophageal reflux disease) (Acute) Hyperlipidemia (Acute) CVA?: No Bleeding problem?: No Kidney disease?: No W[place]?: Yes Desired PTT range:: 60-80 seconds - Labs Anticoagulation Lab Results:: 12/21/18 03:41 Hgb 12.6 L D Hct 39.4 L Plt Count 123 L - Monitoring Dose Monitor 1 Date: 12/20/18 Time: 13:40 PTT Result:: 26.4 Infusion Rate:: 20 ML/HR (1000 UNITS/HR) HEPARIN 4000 UNIT BOLUS Dose Monitor 2 Date: 12/20/18 Time: 20:15 PTT Result:: 42.7 Infusion Rate:: 24 ML/HR (1200 UNITS/HR) HEPARIN BOLUS 4000 UNITS Dose Monitor 3 Date: 12/21/18 Time: 03:41 PTT Result:: 87.2 Infusion Rate:: RATE WAS DECREASED TO 22 ML/HR (1100 UNITS/HR) - Core Measures Is INR > or = 2 at discharge?: No Most Recent Labs:: Laboratory Results - last 24 hr 12/20/18 11:07: POC Glucose 177 H 12/20/18 13:40: APTT 26.4 12/20/18 16:09: POC Glucose 175 H 12/20/18 20:06: POC Glucose 138 H 12/20/18 20:15: APTT 42.7 H D 12/21/18 03:41: WBC 9.4, RBC 4.02 L, Hgb 12.6 L D, Hct 39.4 L, MCV 98.1 H, MCH 31.4 H, MCHC 32.0, RDW 13.5, Plt Count 123 L, MPV 8.8, Neut % (Auto) 67.6, Lymph % (Auto) 19.8, [place] % (Auto) 5.3, Eos % (Auto) 6.9, Baso % (Auto) 0.3, Neut # (Auto) 6.4, Lymph # (Auto) 1.9, [place] # (Auto) 0.5, Eos # (Auto) 0.7 H, Baso # (Auto) 0.0 12/21/18 03:41: Sodium 141, Potassium 4.0, Chloride 106, Carbon Dioxide 28, Anion Gap 11.0, BUN 18, Creatinine 0.95 D, Estimated Creat Clear 87, Estimated GFR 76, Est GFR ( Amer) 93 D, Glucose 157 H D, Calcium 8.4 L 12/21/18 03:41: APTT 87.2 H* D 12/21/18 05:46: POC Glucose 154 H Were Heparin and Warfarin started on the same day?: No If not, why?: PATIENT TRANSFERRED TO [facility]
--- NOTE | 2018-12-21 09:19 | Progress Note ---
Internal Medicine - PN: Subj *Date: 12/21/18 *Time: 09:17 Interval history: Patient was stable overnight, [facility] called with a bed early this morning. Exam Vital signs and Labs for Last 24 Hours: Temp Pulse Resp BP Pulse Ox 98.2 F 94 H 19 155/90 H 97 12/21/18 08:00 12/21/18 08:00 12/21/18 08:00 12/21/18 08:00 12/21/18 08:00 Laboratory Results - last 24 hr 12/20/18 11:07: POC Glucose 177 H 12/20/18 13:40: APTT 26.4 12/20/18 16:09: POC Glucose 175 H 12/20/18 20:06: POC Glucose 138 H 12/20/18 20:15: APTT 42.7 H D 12/21/18 03:41: WBC 9.4, RBC 4.02 L, Hgb 12.6 L D, Hct 39.4 L, MCV 98.1 H, MCH 31.4 H, MCHC 32.0, RDW 13.5, Plt Count 123 L, MPV 8.8, Neut % (Auto) 67.6, Lymph % (Auto) 19.8, [place] % (Auto) 5.3, Eos % (Auto) 6.9, Baso % (Auto) 0.3, Neut # (Auto) 6.4, Lymph # (Auto) 1.9, [place] # (Auto) 0.5, Eos # (Auto) 0.7 H, Baso # (Auto) 0.0 12/21/18 03:41: Sodium 141, Potassium 4.0, Chloride 106, Carbon Dioxide 28, Anion Gap 11.0, BUN 18, Creatinine 0.95 D, Estimated Creat Clear 87, Estimated GFR 76, Est GFR ( Amer) 93 D, Glucose 157 H D, Calcium 8.4 L 12/21/18 03:41: APTT 87.2 H* D 12/21/18 05:46: POC Glucose 154 H Vital Signs - 24 hr 12/20/18 10:00 12/20/18 11:00 12/20/18 12:00 Temperature Pulse Rate 84 Pulse Rate [Apical] Pulse Rate [Left Radial] 77 70 84 Respiratory Rate 20 18 16 Blood Pressure [Right Arm] 141/83 H 121/74 144/90 H 02 Sat by Pulse Oximetry 96 98 98 12/20/18 13:00 12/20/18 14:00 12/20/18 15:00 Temperature Pulse Rate Pulse Rate [Apical] Pulse Rate [Left Radial] 86 88 87 Respiratory Rate 18 16 16 Blood Pressure [Right Arm] 147/81 H 151/74 H 156/86 H 02 Sat by Pulse Oximetry 97 96 95 12/20/18 16:00 12/20/18 17:00 12/20/18 18:00 Temperature 98.3 F Pulse Rate 90 Pulse Rate [Apical] Pulse Rate [Left Radial] 84 95 H 80 Respiratory Rate 19 18 18 Blood Pressure [Right Arm] 161/95 H 131/73 138/88 02 Sat by Pulse Oximetry 94 L 96 97 12/20/18 20:00 12/20/18 22:00 12/21/18 00:00 Temperature 98.3 F 98.5 F Pulse Rate 86 76 Pulse Rate [Apical] Pulse Rate [Left Radial] 89 72 82 Respiratory Rate 18 18 14 Blood Pressure [Right Arm] 171/92 H 137/67 119/55 L 02 Sat by Pulse Oximetry 95 92 L 93 L 12/21/18 02:00 12/21/18 04:00 12/21/18 06:00 Temperature 98.1 F Pulse Rate 79 Pulse Rate [Apical] Pulse Rate [Left Radial] 70 84 77 Respiratory Rate 14 16 14 Blood Pressure [Right Arm] 134/74 141/85 H 133/73 02 Sat by Pulse Oximetry 92 L 93 L 92 L 12/21/18 08:00 Temperature 98.2 F Pulse Rate Pulse Rate [Apical] 94 H Pulse Rate [Left Radial] Respiratory Rate 19 Blood Pressure [Right Arm] 155/90 H 02 Sat by Pulse Oximetry 97 I & O for Last 24 hours: Intake & Output 12/18/18 12/19/18 12/20/18 12/21/18 23:59 23:59 23:59 23:59 Intake Total 859 / 859 908 / 908 Output Total 600 / 950 850 / 850 Balance 259 / -91 58 / 58 Weight 225 lb 8 oz 230 lb 1.014 oz Assessment and Plan (1) CAD (coronary artery disease) Status: Acute Category: Medical Code(s): I25.10 - Atherosclerotic heart disease of [place] coronary artery without angina pectoris (2) Diabetes type 2, controlled Status: Acute Category: Medical Code(s): E11.9 - Type 2 diabetes mellitus without complications (3) Atrial fibrillation Status: Acute Category: Medical Code(s): I48.91 - Unspecified atrial fibrillation (4) History of CVA (cerebrovascular accident) Status: Acute Category: Medical Code(s): Z86.73 - Personal history of transient ischemic attack (TIA), and cerebral infarction without residual deficits (5) HTN (hypertension) Status: Acute Category: Medical Code(s): I10 - Essential (primary) hypertension (6) GERD (gastroesophageal reflux disease) Status: Acute Category: Medical Code(s): K21.9 - Gastro-esophageal reflux disease without esophagitis (7) Hyperlipidemia Status: Acute Category: Medical Code(s): E78.5 - Hyperlipidemia, unspecified (8) Non-STEMI (non-ST elevated myocardial infarction) Status: Acute Category: Medical Code(s): I21.4 - Non-ST elevation (NSTEMI) myocardial infarction (9) Renal insufficiency Status: Acute Category: Medical Code(s): N28.9 - Disorder of kidney and ureter, unspecified - Assessment and plan all Dx Assessment and Plan for all problems:: Continue Heparine drip, transfered to [facility] this morning.
== END 2018-12-21 08:40 | disposition short-term general hospital (02) | DRG 282 ==
LOC: ER 03:25 → 2ND 03:25 → OBSVTOIN 06:59 → 2ND 07:49
PROVIDERS: ADMIT Family Medicine; ATTEND Family Medicine
CPT/HCPCS: J2405

== ENCOUNTER → 2019-02-09 13:55 | Outpatient (CLI) | payer MEDICARE, BC, SELFPAY ==
[2019-02-09 17:27] LABS: Prostate Specific Ag, Diagnost 0.77 ng/mL (0.0-4.0)
== END ==
PROVIDERS: Visit Provider Urology
DX: N40.0 Benign prostatic hyperplasia without lower urinary tract symptoms (principal)
CPT/HCPCS: 36415; 84153

== ENCOUNTER → 2019-06-01 14:18 | Outpatient (CLI) | payer MEDICARE, BC, SELFPAY ==
--- NOTE | 2019-06-01 14:25 | XR_ITS ---
PROCEDURE: XR CERVICAL SPINE 5V CLINICAL INDICATION: LT ARM PAIN Left arm pain and numbness COMPARISON: No exams were available for comparison FINDINGS: Degenerative disc disease is present from C3 to C7 most extensive at C3-C4 and C5-C6. There is slight reversal of the upper cervical lordosis. Incidental nuchal ligament calcification noted. There is some uncovertebral and facet hypertrophy with mild right-sided foraminal narrowing at C4-C5 and C5-C6 and moderate left-sided foraminal narrowing at C3-C4 and C4-C5 with mild foraminal narrowing on the left at C6-C7. No fracture or dislocation. No lytic or blastic change. Facet arthritic changes are present from C3-C7. Incidental vascular calcifications are noted. IMPRESSION: Cervical spondylosis with degenerative disc disease and facet arthritic change as described above with bilateral foraminal narrowing. Please see above for details. Reversal cervical lordosis which could be due to patient positioning or muscle spasm Dictated by: Young Fragoso MD 06/01/2019 15:11 Electronically signed by Young Fragoso MD in [place] 06/01/2019 15:11
== END ==
PROVIDERS: PCP Family Medicine; Visit Provider Family Medicine
DX: M79.602 Pain in left arm (principal)
CPT/HCPCS: 72050

== ENCOUNTER → 2019-06-18 16:26 | Outpatient (CLI) | payer MEDICARE, BC, SELFPAY ==
--- NOTE | 2019-06-18 16:37 | XR_ITS ---
PROCEDURE: XR FOOT RT MIN 3V CLINICAL INDICATION: INJURY COW STOMPED ON FOOT Posttraumatic pain COMPARISON: No exams were available for comparison FINDINGS: No fracture or dislocation. No lytic or blastic change. There is normal mineralization. Mild osteoarthritic changes are present at the talonavicular and cuneiform metatarsal junction Other findings:Generalized vascular calcification IMPRESSION: Mild osteoarthritic change, no acute finding Dictated by: Young Fragoso MD 06/18/2019 17:18 Electronically signed by Young Fragoso MD in [place] 06/18/2019 17:18
== END ==
PROVIDERS: PCP Family Medicine; Visit Provider Family Medicine
DX: M79.671 Pain in right foot (principal)
CPT/HCPCS: 73630

== ENCOUNTER → 2019-07-30 07:52 | Outpatient (CLI) | payer MEDICARE, BC, SELFPAY ==
--- NOTE | 2019-07-30 08:00 | MR_ITS ---
PROCEDURE: MR CERVICAL SPINE WO CON CLINICAL INDICATION: PAIN IN LEFT ARM, CERVICAL DISC DISEASE Bilateral arm and hand pain and numbness left side worse than right, cervical spondylosis COMPARISON: XR CERVICAL SPINE 5V from 06/01/2019 TECHNIQUE: Standard multiplanar multiecho sequences are performed without contrast. 3-D MIP and myelographic images are also rendered and reviewed FINDINGS: There is normal alignment. Cranial cervical junction has an unremarkable appearance. There is mild diffuse increased T2 signal within the lore[place] and may be due to ischemic gliotic change from microvascular disease. There is straightening of the cervical lordosis. C2-C3: Unremarkable. C3-C4: Degenerative disc disease with bulging disc. There is endplate hypertrophic change with a broad-based central left paracentral and foraminal disc osteophyte complex along with uncovertebral and facet hypertrophy with resultant severe left lateral recess and foraminal narrowing. There is mild impingement upon the anterior left aspect of the cord with mild contour deformity of the cord on the left anteriorly. C4-C5: Degenerate disc disease with mild uncovertebral hypertrophy and mild bilateral foraminal narrowing. C5-C6: Degenerate disc disease. There is loss of disc space. C6-C7: Degenerate disc disease with mild bulging disc along with bilateral foraminal narrowing from uncovertebral hypertrophy. C7-T1: Mild left foraminal narrowing from facet and uncovertebral hypertrophy. T1-T2: Degenerate disc disease with mild bulging disc. IMPRESSION: 1. Multilevel cervical spondylosis with bulging disc along with facet and uncovertebral hypertrophy as detailed above. Please see above for detailed description at each level. 2. Degenerative disc disease at C3-C4 with bulging disc. There is endplate hypertrophic change with a broad-based central left paracentral and foraminal disc osteophyte complex along with uncovertebral and facet hypertrophy with resultant severe left lateral recess and foraminal narrowing. There is mild impingement upon the anterior left aspect of the cord with mild contour deformity of the cord on the left anteriorly. 3. No extruded herniated disc or bony canal stenosis Dictated by: Young Fragoso MD 07/31/2019 11:31 Electronically signed by Young Fragoso MD in [place] 07/31/2019 11:31
== END ==
PROVIDERS: PCP Family Medicine; Visit Provider Family Medicine
DX: M79.602 Pain in left arm (principal); M50.90 Cervical disc disorder, unspecified, unspecified cervical region
CPT/HCPCS: 72141; 76376

== ENCOUNTER → 2019-08-25 13:30 | Outpatient (POV) | payer MEDICARE, BC, SELFPAY | DX: Z00.00 Encounter for general adult medical examination without abnormal findings (principal) ==

== ENCOUNTER → 2019-11-15 08:34 | Outpatient (POV) | payer MEDICARE, BC, SELFPAY ==
[2019-11-15 08:53] VITALS: BP 133/78; PULSE 75; RESP 18; O2SAT 99; BMI 31.1
--- NOTE | 2019-11-15 09:02 | P.CONS_ITS ---
[facility] Pain Management SOAP Note Subjective:: Is a pleasant 79-year-old white male who presents today for follow-up. Patient was last seen in May 2018. Patient had a right SI joint injection right hip injection. Patient had 90% relief of his symptomology for over 3 months. Patient's pain is beginning to return he rates it a 5 out of 10 when he is not doing anything. He states it can get up to a 9 out of 10 when he is working. Patient is interested in additional injective therapy. He has had a defibrillator placed since his last visit. He is on blood thinners. ROS General: no recent weight change, no fever, no sleep disturbances Respiratory: no cough, no shortness of air, no recurring pulmonary infections Cardiovascular/Peripheral Vascular: No chest pain, No palpitations, no edema, no shortness of breath. Gastrointestinal: no new onset incontinence, normal bowel movements reported Genitourinary: no new onset incontinence Musculoskeletal: Right hip pain Psychiatric: normal mood/ affect Neurological: [denies new onset weakness in extremities], [denies new onset balance issues] Objective:: Physical Exam General: Alert and oriented x3, no acute distress, pleasant and cooperative, [on room air] Lungs: Resps E/U, Symmetrical chest expansion, Eyes: PERRL Musculoskeletal: Flexion and extension of lumbar spine somewhat guarded secondary to pain, deep tendon reflexes normal, strength in upper and lower extremities [5/5], [abnormal gait noted] Antolin test SI joint compression test and Anna's test on the right side, extreme tenderness over right hip Neurological: speech clear, board hammer operator equal, no gross sensory deficits Assessment:: Sacroiliitis, right hip pain Plan:: We will set him up for right intra-articular hip injection along with a right SI joint injection. Given the efficacy of this in the past I do believe it would benefit him. I will follow-up with him afterwards reassess his symptoms at that time he has been instructed to call the office if he has any issues prior to his next appointment. Dr. Webb has reviewed this note and agrees with this plan of care. This note was dictated using voice recognition software and may contain errors or omissions [facility] History I have reviewed the patient's past medical history: Yes Medical History: Reports:: Atrial Fibrillation, Cancer, Coronary Artery Disease, Diabetes Mellitus Type 2, Hyperlipidemia, Hypertension, Myocardial Infarction Denies:: Diabetes Mellitus Type 1, Internal Pacemaker, Lung Disease, MRSA, Seizures *Have you ever received a pneumonia vaccine?: Yes *Have you received a flu vaccine this season?: Yes Other Medical History: Reports: Arthritis, Cataracts, Other Laterality Cases: Right: Total Hip Replacement Other Surgeries: Yes: Cardiac Catheterization, Colonoscopy, Coronary Stent, EGD, Skin Cancer Excision, Other (low back disc surgery, TURP). No: Pacemaker Amputation: No Fractures: No - *Social History Smoking Status: Former smoker Tobacco Type: cigarettes # Packs/Day (cigarettes): 1 Alcohol Intake: current Alcohol Intake Frequency:: holidays/special occasions only Substance Use Type: denies use *Occupational Status:: other Housing: house Household Members: spouse *Travel in the last 8 weeks: None Family Hx:: Coronary Artery Disease, Diabetes, Hypertension, Stroke
== END ==
PROVIDERS: PCP Family Medicine; Visit Provider Clinical Nurse Specialist Family Health
DX: M46.1 Sacroiliitis, not elsewhere classified (principal); M25.551 Pain in right hip
CPT/HCPCS: 99212

== ENCOUNTER 2019-11-19 14:01 | Day surgery (SDC) | payer MEDICARE, BC, SELFPAY ==
[2019-11-19 14:25] VITALS: BP 188/84; PULSE 74; RESP 18; TEMP 36.4; O2SAT 95; BMI 31.1
[2019-11-19 14:44] LABS: POC Glucose,Bedside 157 (70-110)
[2019-11-19 14:49] VITALS: BP 142/78; PULSE 74; RESP 18
[2019-11-19 14:50] VITALS: BP 149/75; PULSE 84; RESP 18; O2SAT 98
--- NOTE | 2019-11-19 14:51 | HMH.PMPROC ---
- Procedure Date: 11/19/19 Time: 14:52 Anesthesiologist:: Bryan Webb MD Complications:: None Pre-procedure Diagnosis:: Sacroiliitis and right hip pain Post-procedure Diagnosis:: Same Indications for Procedure:: This patient is a pleasant 79-year-old white male who we have been treating for right-sided hip pain. He is done well with previous SI joint injections. He is tender over his right SI joint again today. He got 90% relief for 3 months at his last injection. Pain is starting to return. He is positive Anna's test on the right side. He is positive Antolin test on the right side. He has a positive SI joint compression test on the right side. We will do a right SI joint injection under fluoroscopy today to help him with his pain symptoms. He is also had right side total hip arthroplasty. He still having some pain in his joint. We will do a right hip intra-articular injection to help him with his pain symptoms in his right hip joint. Procedure Details:: Right SI joint injection under fluoroscopy Informed consent was obtained and the risks and benefits of the procedure was going to the patient. Patient was taken to the procedure room. Patient was placed prone on the procedure table. The right hip was prepped using ChloraPrep. The skin and subcutaneous tissues were anesthetized using lidocaine. I placed a 22-gauge spinal needle into the inferior aspect of the right SI joint. Needle placement was confirmed with dye. After this we injected 5 mL bupivacaine 0.25% and Depo-Medrol 40 mg into the right SI joint. The patient tolerated the procedure well with no complication. Right hip joint was viewed. There is no abnormality seen. A 22-gauge spinal needle was inserted adjacent to the right hip joint. We injected dye to confirm needle placement. We then injected 5 mL bupivacaine 0.25% and Depo-Medrol 40 mg into that area. Patient tolerated procedure well with no complications. Plan and Disposition:: We will follow-up with him in 2 weeks. Will reevaluate symptoms at that time. I am not exactly sure that pain is coming from the right hip joint as he is already had total hip arthroplasty. I believe he has significant pain from his right SI joint as well as from his low back.
[2019-11-19 15:03] VITALS: BP 188/79; PULSE 75; RESP 20; O2SAT 95
== END 2019-11-19 15:04 | disposition home or self-care (01) ==
LOC: SC.PAINP 14:02
PROVIDERS: PCP Family Medicine; Visit Provider Anesthesiology
DX: M46.1 Sacroiliitis, not elsewhere classified (principal); I25.10 Atherosclerotic heart disease of native coronary artery without angina pectoris; I10 Essential (primary) hypertension; E11.9 Type 2 diabetes mellitus without complications; Z95.0 Presence of cardiac pacemaker; I25.2 Old myocardial infarction; J44.9 Chronic obstructive pulmonary disease, unspecified; E78.5 Hyperlipidemia, unspecified; K21.9 Gastro-esophageal reflux disease without esophagitis; N28.9 Disorder of kidney and ureter, unspecified; Z95.818 Presence of other cardiac implants and grafts; Z96.649 Presence of unspecified artificial hip joint
CPT/HCPCS: 27096; 82962; G0260; J1030; Q9966

== ENCOUNTER → 2019-12-13 10:08 | Outpatient (POV) | payer MEDICARE, BC, SELFPAY ==
--- NOTE | 2019-12-13 10:33 | HMH.PAINSOAP ---
[facility] Pain Management SOAP Note Subjective:: Patient is a pleasant 79-year-old white male who presents today for follow-up after his right SI joint injection. He gets 3 months relief with his SI joint injections. Patient has 80% relief of his symptomology he rates his pain a 2 out of 10 today. We briefly talked about a corner lock procedure. At this time he is too busy for this. 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 He has had a right hip arthroplasty he does have pain in this joint. ROS General: no recent weight change, no fever, no sleep disturbances Respiratory: no cough, no shortness of air, no recurring pulmonary infections Cardiovascular/Peripheral Vascular: No chest pain, No palpitations, no edema, no shortness of breath. Gastrointestinal: no new onset incontinence, normal bowel movements reported Genitourinary: no new onset incontinence Musculoskeletal: Right hip and SI joint pain Psychiatric: normal mood/ affect Neurological: [denies new onset weakness in extremities], [denies new onset balance issues] Objective:: Physical Exam General: Alert and oriented x3, no acute distress, pleasant and cooperative, [on room air] Lungs: Resps E/U, Symmetrical chest expansion, Eyes: PERRL Musculoskeletal: Flexion and extension of lumbar spine somewhat guarded secondary to pain, deep tendon reflexes normal, strength in upper and lower extremities [5/5], [abnormal gait noted] Neurological: speech clear, lease purchase driver equal, no gross sensory deficits Assessment:: Sacroiliitis and right hip pain Plan:: We will give the patient information on the corner lock procedure. Patient is going to call us if his pain begins to return. Dr. Webb has reviewed this note and agrees with this plan of care. This note was dictated using voice recognition software and may contain errors or omissions [facility] History I have reviewed the patient's past medical history: Yes Medical History: Reports:: Atrial Fibrillation, Coronary Artery Disease, Diabetes Mellitus Type 2, Hyperlipidemia, Hypertension, Myocardial Infarction Denies:: Cancer, Diabetes Mellitus Type 1, Internal Pacemaker, Lung Disease, MRSA, Seizures *Have you ever received a pneumonia vaccine?: No *Have you received a flu vaccine this season?: No Other Medical History: Reports: Arthritis, Cataracts, Other Laterality Cases: Right: Total Hip Replacement Other Surgeries: Yes: Cardiac Catheterization, Colonoscopy, Coronary Stent, EGD, Skin Cancer Excision, Other (low back disc surgery, TURP). No: Pacemaker Amputation: No Fractures: No - *Social History Smoking Status: Former smoker Tobacco Type: cigarettes # Packs/Day (cigarettes): 1 Alcohol Intake: never Alcohol Intake Frequency:: holidays/special occasions only Substance Use Type: denies use *Occupational Status:: retired Housing: house Household Members: spouse *Travel in the last 8 weeks: None Family Hx:: Coronary Artery Disease, Diabetes, Hypertension, Stroke
[2019-12-13 10:36] VITALS: BP 174/71; PULSE 74; RESP 18; O2SAT 98; BMI 31.1
== END ==
PROVIDERS: PCP Family Medicine; Visit Provider Clinical Nurse Specialist Family Health
DX: M46.1 Sacroiliitis, not elsewhere classified (principal); M25.551 Pain in right hip
CPT/HCPCS: 99212

== ENCOUNTER → 2020-01-11 12:51 | Outpatient (CLI) | payer MEDICARE, BC, SELFPAY ==
--- NOTE | 2020-01-11 13:02 | CA_ITS ---
APPROVED REPORT EXAM: Comprehensive 2D, Doppler, and color-flow Echocardiogram Rn Occupational Health: Brynn Zeng RVT Ht: 6 ft 0 in Wt: 225lbs BSA: 2.24 BP: 121/74 mmHg Indications: SOA,AICD,CAD,STENT,DM,HTN,HLD,A-FIB 2D Dimensions LVOT 2.20 cm (M/F) 1.5-2.5 M-Mode Dimensions RVDd 3.00 cm (0.9-2.6) LA Diam 3.90 cm (1.9-4.0) LVDd 5.70 cm (3.5-5.7) Ao Diam 3.20 cm (2.0-3.7) LVDs 4.10 cm (3.5-5.7) AV Cusp 2.40 cm (1.5-2.6) IVSd 1.50 cm (0.6-1.1) PWd 1.10 cm (0.6-1.1) EF (Teich) 53.60% FS 28.10% EDV (Teich) 160.00 mL ESV (Teich) 74.20 mL LV Diastology E/A Ratio 0.6 MED E' 3.12 (< 7 cm/sec) E'/MED E' Ratio 14.60 (>14) LAT E' 6.04 (<10 cm/sec) E/LAT E' Ratio 7.50 (>14) Mitral Valve MV E Max Gal. 45.40 (40-130 cm/s) MV A Velocity 73.10 (40-130 cm/s) E/A Ratio 0.60 Pulmonary Valve PV Peak Velocity 76.00 (50-150 cm/s) Tricuspid Valve TR P. Velocity 261.00 cm/s Left Ventricle Left atrium is mildly enlarged, left ventricle is normal size, mild concentric left ventricular hypertrophy, visually estimated ejection fraction 45% with no regional wall motion abnormality, there is abnormal septal motion. Diastolic parameters are inconclusive. Right Ventricle Right atrium and right ventricular normal size and contractility, there is pacemaker lead seen right atrium and right ventricle. Aortic Valve Aortic valve is minimally thickened and fibrosed, there is no aortic stenosis or aortic insufficiency. Mitral Valve Mitral valve leaflets are minimally thickened, there is mild mitral regurgitation. Tricuspid Valve Tricuspid valve is grossly normal, there is mild tricuspid regurgitation, tricuspid regurgitation jet velocity is inadequate for calculation of the right ventricular systolic pressure. Pulmonic Valve Pulmonic valve is poorly visualized. Great Vessels Aortic root is normal size. Pericardium No significant pericardial effusion noted. Conclusion 1. Mildly enlarged left atrium, normal left ventricular size, mild concentric left ventricular hypertrophy, visually estimated ejection fraction 45% with no regional wall motion abnormality, there is abnormal septal motion, diastolic parameters are inconclusive. 2. Mild mitral and tricuspid regurgitation. 3. No significant pericardial effusion noted. Electronically signed by : Jovani Perdomo, 01/11/2020 21:13:20
== END ==
PROVIDERS: PCP Family Medicine; Visit Provider Family Medicine
DX: R06.02 Shortness of breath (principal); I25.10 Atherosclerotic heart disease of native coronary artery without angina pectoris
CPT/HCPCS: 93306

== ENCOUNTER → 2020-06-09 14:45 | Outpatient (CLI) | payer MEDICARE, BC, SELFPAY ==
[2020-06-09 15:12] LABS: Alanine Aminotransferase 17 U/L (12-78); Albumin Level 3.4 g/dl (3.5-5.0); Albumin/Globulin Ratio 1.2 (1.1-1.8); Alkaline Phosphatase 86 U/L (38-126); Aspartate Amino Transferase 35 U/L (17-59); Bilirubin,Total 0.7 mg/dl (0.2-1.3); Blood Urea Nitrogen 22 mg/dl (9-20); Calcium 9.1 mg/dl (8.4-10.2); Carbon Dioxide 24 mmol/L (22.0-30.0); Chloride 107 mmol/L (98-107); Estimated Glomerular Filt Rate 64 ml/min (>60); GFR (African American) 78 ML/MIN (>60); Globulin 2.9 g/dL (1.3-3.2); Glucose 87 mg/dl (74-100); Sodium 138 mmol/L (136-145); Total Protein,Serum 6.3 g/dl (6.3-8.2)
[2020-06-09 15:23] LABS: NT Pro Brain Natriuretic Pep. 2310 pg/mL (0-450)
[2020-06-09 15:31] LABS: Free T4 (Free Thyroxine) 1.04 ng/dl (0.78-2.19)
[2020-06-09 15:45] LABS: Thyroid Stimulating Hormone 1.24 uIU/mL (0.465-4.68)
[2020-06-09 15:51] LABS: 25-OH Vitamin D, Total 42.3 ng/mL (30-100)
[2020-06-09 16:07] LABS: Vitamin B12 > 1000 pg/mL (239-931)
== END ==
PROVIDERS: Visit Provider Family Medicine
DX: R06.02 Shortness of breath (principal); R53.83 Other fatigue
CPT/HCPCS: 80053; 82306; 82607; 83880; 84439; 84443

== ENCOUNTER → 2020-07-14 09:42 | Outpatient (CLI) | payer MEDICARE, BC, SELFPAY | PROVIDERS: PCP Family Medicine; Visit Provider Internal Medicine Cardiovascular Disease | DX: Z01.818 Encounter for other preprocedural examination (principal); Z11.52 Encounter for screening for COVID-19 | CPT/HCPCS: U0003 ==

== ENCOUNTER → 2020-08-02 13:21 | Outpatient (POV) | payer MEDICARE, BC, SELFPAY | DX: Z00.00 Encounter for general adult medical examination without abnormal findings (principal) ==

== ENCOUNTER → 2020-08-03 14:15 | Outpatient (POV) | payer MEDICARE, BC, SELFPAY ==
--- NOTE | 2020-08-03 14:35 | P.CONS_ITS ---
[facility] Pain Management SOAP Note Subjective:: Patient is a pleasant 80-year-old white male who presents today for follow-up. Patient was seen last November. He had a SI joint injection he gets up to 80% relief of his symptomology for several months. He would like to repeat this. He has a positive Antolin test SI joint compression test and Anna's test on the right side. He rates his pain today 7 out of 10. Radiation of the pain is in his groin. ROS General: no recent weight change, no fever, no sleep disturbances Respiratory: no cough, no shortness of air, no recurring pulmonary infections Cardiovascular/Peripheral Vascular: No chest pain, No palpitations, no edema, no shortness of breath. Gastrointestinal: no new onset incontinence, normal bowel movements reported Genitourinary: no new onset incontinence Musculoskeletal: Right SI joint pain Psychiatric: normal mood/ affect Neurological: [denies new onset weakness in extremities], [denies new onset balance issues] Objective:: Physical Exam General: Alert and oriented x3, no acute distress, pleasant and cooperative, [on room air] Lungs: Resps E/U, Symmetrical chest expansion, Eyes: PERRL Musculoskeletal: Flexion and extension of lumbar spine somewhat guarded secondary to pain, deep tendon reflexes normal, strength in upper and lower extremities [5/5], [abnormal gait noted] Neurological: speech clear, fashion design professor equal, no gross sensory deficits Assessment:: Sacroiliitis Plan:: We will plan a right SI joint injection. Patient's been instructed to call the office if he has any issues prior to his next appointment I will follow-up with him afterwards reassess his symptoms at that time. Dr. Webb has reviewed this note and agrees with this plan of care. This note was dictated using voice recognition software and may contain errors or omissions [facility] History I have reviewed the patient's past medical history: Yes Medical History: Reports:: Atrial Fibrillation, Coronary Artery Disease, Diabetes Mellitus Type 2, Hyperlipidemia, Hypertension, Myocardial Infarction Denies:: Cancer, Diabetes Mellitus Type 1, Internal Pacemaker, Lung Disease, MRSA, Seizures *Have you ever received a pneumonia vaccine?: Yes *Have you received a flu vaccine this season?: Yes Other Medical History: Reports: Arthritis, Cataracts, Other Laterality Cases: Right: Total Hip Replacement Other Surgeries: Yes: Cardiac Catheterization, Colonoscopy, Coronary Stent, EGD, Skin Cancer Excision, Other (low back disc surgery, TURP). No: Pacemaker Amputation: No Fractures: No - *Social History Smoking Status: Former smoker Tobacco Type: cigarettes # Packs/Day (cigarettes): 1 Alcohol Intake: never Alcohol Intake Frequency:: holidays/special occasions only Substance Use Type: denies use *Occupational Status:: other Housing: house Household Members: spouse *Travel in the last 8 weeks: None Family Hx:: Coronary Artery Disease, Diabetes, Hypertension, Stroke
[2020-08-03 14:42] VITALS: BP 133/62; PULSE 70; RESP 18; O2SAT 98; BMI 31.1
== END ==
PROVIDERS: PCP Family Medicine; Visit Provider Clinical Nurse Specialist Family Health
DX: M46.1 Sacroiliitis, not elsewhere classified (principal)
CPT/HCPCS: 99212; G0463

== ENCOUNTER 2020-08-04 10:41 | Day surgery (SDC) | payer MEDICARE, BC, SELFPAY ==
[2020-08-04 10:58] VITALS: BP 196/74; PULSE 75; RESP 18; TEMP 36.5; O2SAT 98; BMI 31.1
--- NOTE | 2020-08-04 11:28 | HMH.PMPROC ---
- Procedure Date: 08/04/20 Time: 11:28 Anesthesiologist:: Bryan Webb MD Complications:: None Pre-procedure Diagnosis:: Sacroiliitis Post-procedure Diagnosis:: Same Indications for Procedure:: Patient is a pleasant 80-year-old white male who we are treating for right-sided hip pain. He is tender over the right SI joint. He does have a positive Anna's test on the right side. Is positive Antolin test on the right side. He has a positive SI joint compression test on the right side. We will do a right SI joint injection under fluoroscopy today to help with pain symptoms. Procedure Details:: Right SI joint injection under fluoroscopy Informed consent was obtained and the risks and benefits of the procedure was going to the patient. Patient was taken to the procedure room. Patient was placed prone on the procedure table. The right hip was prepped using ChloraPrep. The skin and subcutaneous tissues were anesthetized using lidocaine. I placed a 22-gauge spinal needle into the inferior aspect of the right SI joint. Needle placement was confirmed with dye. After this we injected 5 mL bupivacaine 0.25% and Depo-Medrol 40 mg into the right SI joint. The patient tolerated the procedure well with no complication. Plan and Disposition:: We will follow-up with him in 2 weeks. Will reevaluate symptoms at that time.
[2020-08-04 11:31] VITALS: BP 133/78; PULSE 89; RESP 18
[2020-08-04 11:32] VITALS: BP 133/78; PULSE 89; RESP 18; O2SAT 99
[2020-08-04 11:44] VITALS: BP 180/62; PULSE 68; RESP 18; O2SAT 98
== END 2020-08-04 11:45 | disposition home or self-care (01) ==
LOC: SC.PAINP 10:42
PROVIDERS: PCP Family Medicine; Visit Provider Anesthesiology
DX: M46.1 Sacroiliitis, not elsewhere classified (principal); I10 Essential (primary) hypertension; I25.10 Atherosclerotic heart disease of native coronary artery without angina pectoris; E11.9 Type 2 diabetes mellitus without complications; K21.9 Gastro-esophageal reflux disease without esophagitis; E78.5 Hyperlipidemia, unspecified; I48.91 Unspecified atrial fibrillation; J44.9 Chronic obstructive pulmonary disease, unspecified; Z95.0 Presence of cardiac pacemaker; Z95.818 Presence of other cardiac implants and grafts; Z96.649 Presence of unspecified artificial hip joint; Z79.82 Long term (current) use of aspirin; Z79.84 Long term (current) use of oral hypoglycemic drugs; Z79.4 Long term (current) use of insulin; Z79.899 Other long term (current) drug therapy
CPT/HCPCS: 27096; G0260; J1040; Q9966

== ENCOUNTER → 2020-08-24 09:26 | Outpatient (POV) | payer MEDICARE, BC, SELFPAY ==
[2020-08-24 09:34] VITALS: BP 176/63; PULSE 68; RESP 18; O2SAT 97; BMI 31.1
--- NOTE | 2020-08-24 10:11 | HMH.PAINSOAP ---
[facility] Pain Management SOAP Note Subjective:: Patient is an 80-year-old white male who presents today for follow-up after a right SI joint injection and right trochanteric bursa injection. Patient says that he did not get any relief after his injections. He rates his pain an 8 out of 10. His pain is worse when he is standing and walking. He says that the pain is mainly in his right hip and radiating into his right groin.. He has had a right hip replacement in the past. He says that Dr. Solis did not feel his pain was coming from his right hip. He says that he got no relief from the injections and feels that it is indeed coming from his hip. We did discuss that his pain may be very radicular in nature and stemming from his back. He says he has very little back pain, however, from his imaging in 2018 it does note that the patient does have nerve root impingement at L2-L3 and L4. We did discuss he may need updated imaging to determine if he does have any further pathology that would contribute to the pain. He does have a defibrillator since that MRI. We discussed a CT scan. He would like to proceed. Review of Systems General: No recent weight changes, no fever, no sleep disturbances Respiratory: No cough, no shortness of air, no recurring pulmonary infections Cardiovascular/peripheral vascular: No chest pain, no palpitations, no edema, no shortness of breath Gastrointestinal: No new onset incontinence, normal bowel movements reported Genitourinary: No new onset incontinence Musculoskeletal: Right hip pain, right groin pain radiating into right leg Psychiatric: Normal mood/affect Neurological: [Denies weakness in extremities], [denies balance issues] Objective:: Physical exam General: Alert and oriented x3, no acute distress, pleasant and cooperative, [on room air] Lungs: Respirations even and unlabored, symmetrical chest expansion Eyes: PERRL Musculoskeletal: Flexion and extension of lumbar spine somewhat guarded secondary to pain, deep tendon reflexes normal, strength in upper and lower extremities [5/5], [abnormal gait noted] Neurological: Speech clear, back line cook equal, no gross sensory deficit Assessment:: Degenerative disc disease lumbar spine with lumbar radiculopathy symptoms, sacroiliitis, right hip pain, right groin pain Plan:: Patient has not had imaging since 2018. We will schedule him for a CT scan of his lumbar spine. We will see him back in the clinic after his planning to reevaluate his symptoms. He has been instructed to contact clinic if he has any concerns before his next appointment. Dr. Webb has reviewed this note and agrees with this plan of care. This note was dictated using voice recognition software and make contain errors or omissions. [facility] History I have reviewed the patient's past medical history: Yes Medical History: Reports:: Atrial Fibrillation, Coronary Artery Disease, Diabetes Mellitus Type 1, Hyperlipidemia, Hypertension, Internal Pacemaker (defib), Myocardial Infarction Denies:: Cancer, Diabetes Mellitus Type 2, Lung Disease, MRSA, Seizures *Have you ever received a pneumonia vaccine?: Yes *Have you received a flu vaccine this season?: Yes Other Medical History: Reports: Arthritis, Cataracts, Other. Denies: Blood Transfusion Reaction Laterality Cases: Right: Total Hip Replacement Other Surgeries: Yes: Cardiac Catheterization, Colonoscopy, Coronary Stent, EGD, Pacemaker (defib), Skin Cancer Excision, Other (1979 ruptured disc) Amputation: No Fractures: No - *Social History Smoking Status: Former smoker Tobacco Type: cigarettes # Packs/Day (cigarettes): 1 Alcohol Intake: never Alcohol Intake Frequency:: holidays/special occasions only Substance Use Type: denies use *Occupational Status:: retired Housing: house Household Members: spouse *Travel in the last 8 weeks: None Family Hx:: Coronary Artery Disease, Diabetes, Hypertension, Stroke
== END ==
PROVIDERS: PCP Family Medicine; Visit Provider Clinical Nurse Specialist Family Health
DX: M51.16 Intervertebral disc disorders with radiculopathy, lumbar region (principal); M46.1 Sacroiliitis, not elsewhere classified; M25.551 Pain in right hip; R10.31 Right lower quadrant pain
CPT/HCPCS: 99212; G0463

== ENCOUNTER → 2020-08-29 07:12 | Outpatient (CLI) | payer MEDICARE, BC, SELFPAY ==
--- NOTE | 2020-08-29 07:16 | CT_ITS ---
PROCEDURE: CT LUMBAR SPINE WO CON CLINICAL HISTORY: HIP/GROIN PAIN C/o rt hip and groin pain Si joint problems Has had pain management with no results COMPARISON: CT ABDPELW/O CT ABD PELVIS W/O CONTRAST from 05/10/2012 MR SPLUMBWO MR lumbar spine wo con from 08/20/2017 TECHNIQUE: Axial images obtained with sagittal and coronal reformats. All CT scans at the facility use one or more dose reduction, viz: automated exposure control, ma/kV adjustment per patient size (including targeted exams where dose is matched to indication, i.e. head), or iterative reconstruction technique. FINDINGS: T12-L1: Degenerative disc disease with bulging disc and facet and ligamentum hypertrophy with mild bilateral lateral recess narrowing. L1-L2: Degenerative disc disease with 4 mm anterolisthesis of L1. There is bulging disc along with facet and ligamentum hypertrophic change with canal stenosis and bilateral lateral recess narrowing which is greater on the right due to partial calcification of the ligamentum flavum. Endplate subchondral cystic changes/Schmorl's nodes are present. L2-L3: There is a fracture of the right L2 transverse process. This is nondisplaced and there is some overlying callus formation suggesting a chronic fracture. Prominent facet and ligamentum hypertrophic changes are present right greater than left with bulging disc, severe canal stenosis, severe right lateral recess narrowing and right-sided foraminal narrowing. L3-L4: Degenerative disc disease with bulging disc within plate hypertrophic changes along facet and ligamentum hypertrophy with mild bilateral lateral recess and foraminal narrowing. L4-5: Degenerative disc disease with endplate hypertrophic changes with left foraminal and lateral disc osteophyte complex along with facet and ligamentum hypertrophy. There is bulging disc. There is moderate left-sided lateral recess and foraminal narrowing. L5-S1: Degenerative disc disease with endplate hypertrophic change and bulging disc with facet and ligamentum hypertrophy with moderate bilateral foraminal narrowing. Multiple sutures are present along the lumbar region posteriorly within the subcutaneous tissues from L2-S1 IMPRESSION: Abnormal CT of the lumbar spine with multilevel lumbar spondylosis with degenerative disc disease, bulging disc with endplate hypertrophic change, canal stenosis, facet and ligamentum hypertrophy with lateral recess and foraminal narrowing. Please see above for detailed description at each level. There is a nondisplaced fracture involving the right L2 transverse process which appears chronic. Dictated by: Young rFagoso MD 08/30/2020 10:12 Young Fragoso MD in [place] 08/30/2020 10:12
== END ==
PROVIDERS: PCP Family Medicine; Visit Provider Clinical Nurse Specialist Family Health
DX: M54.42 Lumbago with sciatica, left side; M54.41 Lumbago with sciatica, right side; R10.2 Pelvic and perineal pain
CPT/HCPCS: 72131

== ENCOUNTER → 2020-09-04 09:02 | Outpatient (POV) | payer MEDICARE, BC, SELFPAY ==
[2020-09-04 09:08] VITALS: BP 172/70; PULSE 69; RESP 18; O2SAT 95; BMI 31.1
--- NOTE | 2020-09-04 11:07 | HMH.PAINSOAP ---
[facility] Pain Management SOAP Note Subjective:: Patient is a pleasant 80-year-old white male who presents today for follow-up after right SI joint injection and right trochanteric bursa injection. Being treated for bilateral hip pain and leg pain with heaviness and weakness. Patient did not get any relief with his injections. He has tried multiple modalities of therapy with no significant relief. He rates his pain a 6 out of 10 today. Patient says that the injections did not improve his pain at all. He is here today to follow-up with the CT scan and discuss a further plan of care. He has had a right SI injection as well as a right hip injection. Patient has not had an epidural steroid injection. He does have a defibrillator and does take Eliquis prescribed by Dr. Chamberlain. Patient I did discuss his CT scan and his symptoms. Patient has significant bilateral hip pain with radiation into his lower extremities. Patient says that his legs are heavy and weak. He feels his legs are going to give out often. Patient says he has very little low back pain, however. Review of Systems General: No recent weight changes, no fever, no sleep disturbances Respiratory: No cough, no shortness of air, no recurring pulmonary infections Cardiovascular/peripheral vascular: No chest pain, no palpitations, no edema, no shortness of breath Gastrointestinal: No new onset incontinence, normal bowel movements reported Genitourinary: No new onset incontinence Musculoskeletal: Bilateral hip pain, heaviness and weakness in bilateral lower extremities Psychiatric: Normal mood/affect Neurological: Heaviness and weakness in bilateral lower extremities, occasional balance issues Objective:: Physical exam General: Alert and oriented x3, no acute distress, pleasant and cooperative, [on room air] Lungs: Respirations even and unlabored, symmetrical chest expansion Eyes: PERRL Musculoskeletal: Flexion and extension of lumbar spine somewhat guarded secondary to pain, deep tendon reflexes normal, strength in upper and lower extremities [5/5], [abnormal gait noted] Neurological: Speech clear, gravure press set up operator equal, no gross sensory deficit Assessment:: Degenerative disc disease lumbar spine with lumbar radiculopathy symptoms, chronic compression fracture, spinal stenosis with neurogenic claudication symptoms Plan:: Given the symptoms and the MRI report, the patient I discussed undergoing a lumbar epidural steroid injection with an epidurogram. He may be a mild candidate. He does have stenosis. He was unaware that he had a compression fracture which was noted per his MRI report at L2-L3 are. It was reported as an old fracture. We did discuss the mild procedure in detail. If he is a candidate, we will proceed with the procedure. He is on Eliquis which is prescribed by Dr. Ibarra. He does continue with home stretching and ice and heat therapies. He is unable to take anti-inflammatories due to his anticoagulation therapy. We will see him back in the clinic after his epidural with epidurogram to reevaluate his symptoms. We will schedule him for the epidural at L3-L4 with an epidurogram. Risks and benefits of the procedure have been explained to the patient. Patient would like to proceed with the procedure. Patient has been instructed to contact the clinic with any concerns before the next appointment. Dr. Webb has reviewed this note and agrees with this plan of care. This note was dictated using voice recognition software and make contain errors or omissions. [facility] History I have reviewed the patient's past medical history: Yes Medical History: Reports:: Atrial Fibrillation, Coronary Artery Disease, Diabetes Mellitus Type 1, Hyperlipidemia, Hypertension, Internal Pacemaker (defib), Myocardial Infarction Denies:: Cancer, Diabetes Mellitus Type 2, Lung Disease, MRSA, Seizures *Have you ever received a pneumonia vaccine?: Yes *Have you received a flu vaccine this season?:
== END ==
PROVIDERS: PCP Family Medicine; Visit Provider Clinical Nurse Specialist Family Health
DX: M51.16 Intervertebral disc disorders with radiculopathy, lumbar region (principal); M48.062 Spinal stenosis, lumbar region with neurogenic claudication; M48.56XA Collapsed vertebra, not elsewhere classified, lumbar region, initial encounter for fracture
CPT/HCPCS: 99212; G0463

== ENCOUNTER 2020-09-15 08:43 | Day surgery (SDC) | payer MEDICARE, BC, SELFPAY ==
[2020-09-15 09:06] VITALS: BP 167/64; PULSE 65; RESP 20; TEMP 36.7; O2SAT 98; BMI 31.1
[2020-09-15 09:59] VITALS: BP 165/82; PULSE 68; RESP 20; O2SAT 96
[2020-09-15 10:18] VITALS: BP 187/100; PULSE 78; RESP 20; O2SAT 96
--- NOTE | 2020-09-15 10:24 | HMH.PMPROC ---
- Procedure Date: 09/15/20 Time: 10:24 Anesthesiologist:: Dania Ochoa MD Complications:: None Pre-procedure Diagnosis:: Lumbar radiculopathy, degenerative disc disease lumbar spine, lumbar spinal stenosis Post-procedure Diagnosis:: Same Indications for Procedure:: This is a very pleasant 80-year-old male who presents today with low back pain radiating into his hips and legs related to the above diagnosis. He also notes that his pain symptoms are worse with prolonged standing and walking and better with pain down or sitting down. He also notes that leaning forward with the use of a shopping cart seems to really help with his pain. He has had previous injections to his SI joints in the past. Of note, he is a diabetic but reports that he has previously undergone steroid injections in the past with no complications related to steroid use. Plan for today is for the patient to undergo a lumbar epidural steroid injection at L4-L5 #1 with epidurogram. Procedure Details:: Informed consent was obtained and the risk and benefits of the procedure was explained to the patient. The patient was taken to the procedure room. The patient was placed prone on the procedure table. The patient was prepped and draped in sterile fashion. C-arm fluoroscopy was used to view the lumbar spine. Skin and subcutaneous tissues were anesthetized using lidocaine. I placed an 18-gauge epidural needle and advanced into the L4-L5 interspace using fluoroscopic guidance and [id number] to air and saline. After confirmation of needle placement in the epidural space with dye to confirm correct placement and to perform an epidurogram, I injected 2 mL of lidocaine 1.5% with Depo-Medrol 80 mg. Patient tolerated the procedure well with no complications. Plan and Disposition:: Follow up with the patient in 2-3 weeks. Will reevaluate pain symptoms at that time. We discussed his epidurogram findings today which demonstrated stenosis at L3-L4 and L4-L5. I discussed with him that should this lumbar epidural steroid injection not provide adequate relief we can either repeat lumbar epidural steroid injection or proceed with a mild procedure depending on the degree of pain improvement experienced after this first lumbar epidural steroid injection. Daniela details of the mild procedure with him and his today. He is also previously received mild brochure which he states he has read very carefully. He has no other questions or concerns at this time.
[2020-09-15 14:55] VITALS: BP 163/64; PULSE 67; RESP 20; TEMP 36.7; O2SAT 98
== END 2020-09-15 11:35 | disposition home or self-care (01) ==
PROVIDERS: PCP Family Medicine; Visit Provider Anesthesiology Pain Medicine
DX: M51.16 Intervertebral disc disorders with radiculopathy, lumbar region (principal); M48.061 Spinal stenosis, lumbar region without neurogenic claudication; I25.2 Old myocardial infarction; I25.10 Atherosclerotic heart disease of native coronary artery without angina pectoris; Z95.0 Presence of cardiac pacemaker; E78.5 Hyperlipidemia, unspecified; I48.91 Unspecified atrial fibrillation; I10 Essential (primary) hypertension; M19.90 Unspecified osteoarthritis, unspecified site; E11.9 Type 2 diabetes mellitus without complications; Z87.891 Personal history of nicotine dependence; Z91.010 Allergy to peanuts
CPT/HCPCS: 62323; J1040; Q9966

== ENCOUNTER → 2020-10-09 09:01 | Outpatient (POV) | payer MEDICARE, BC, SELFPAY ==
[2020-10-09 09:23] VITALS: BP 180/70; PULSE 71; RESP 18; O2SAT 94; BMI 31.8
--- NOTE | 2020-10-09 10:20 | HMH.PAINSOAP ---
[facility] Pain Management SOAP Note Subjective:: Patient is an 80-year-old white male who presents today for follow-up after lumbar epidural steroid injection with Dr. Ochoa. Patient did have an injection at L4-L5, number 1 injection with epidurogram. He is being treated for degenerative disc disease lumbar spine with lumbar radiculopathy symptoms as well as lumbar spinal stenosis with neurogenic claudication symptoms. Patient says that he only got 1 to 2 days of relief. His pain is a 9 out of 10 at this time. Patient's pain is primarily in his right hip, right groin, and right leg. He is having weakness and heaviness in his right lower extremity as well as a feeling of his leg giving out. He says he does have low back pain, however, it is worse in the right hip. He has had a right hip replacement as well as a right knee replacement in the past. Patient has had SI injections for which Dr. Solis did assess the patient's hardware in his right hip which appeared to be intact. The patient says that he did not get any significant relief after the SI injection. He is diabetic. He is also on Plavix and Eliquis that is prescribed by Dr. Gan and Dr. Ibarra at [facility]. Patient says that when he is sitting he has no pain. He says when he is standing and walking is when he has his worst pain. 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 He is unsure if his heaviness and weakness is attributed to his neuropathy or from his back. He says that he has not gotten any significant relief with the injections. He has tried and failed conservative therapy for greater than 6 weeks along with continued home stretching. He is unable to take anti-inflammatories due to taking Plavix and Eliquis. He does have a defibrillator in place. Patient did have an epidurogram and was noted to have stenosis at L3-L4 L4-L5 per Dr. Ochoa. She did discuss with him that he would likely be a candidate for the mild procedure. Review of Systems General: No recent weight changes, no fever, no sleep disturbances Respiratory: No cough, no shortness of air, no recurring pulmonary infections Cardiovascular/peripheral vascular: No chest pain, no palpitations, no edema, no shortness of breath Gastrointestinal: No new onset incontinence, normal bowel movements reported Genitourinary: No new onset incontinence Musculoskeletal: [] Intermittent low back pain, right hip pain, right groin pain, right leg pain with heaviness and weakness Psychiatric: Normal mood/affect Neurological: Heaviness and weakness right lower extremity Objective:: Physical exam General: Alert and oriented x3, no acute distress, pleasant and cooperative, [on room air] Lungs: Respirations even and unlabored, symmetrical chest expansion Eyes: PERRL Musculoskeletal: Flexion and extension of lumbar spine somewhat guarded secondary to pain, deep tendon reflexes normal, strength in upper and lower extremities [5/5], [abnormal gait noted] Neurological: Speech clear, divorce lawyer equal, no gross sensory deficit Assessment:: Degenerative disc disease lumbar spine with lumbar radiculopathy symptoms, spinal stenosis with neurogenic claudication symptoms Plan:: Patient I had a long discussion concerning his options in the clinic. He did not get any significant relief from SI injections or the lumbar epidural steroid injection #1. He got, at most, 40% relief for 2 days. He and I did discuss the mild procedure in detail and other options such as spinal cord stimulation. We also discussed neurosurgical evaluation. He would like to proceed with the mild procedure to see if this gives him relief. He has primary pain in his low back, right groin, right hip and right leg with heaviness and weakness. He is on Eliquis and is o
--- NOTE | 2020-10-11 10:12 | PC.NURSE ---
Spoke with Shashank today about his scheduled MILD procedure on 11/03 @ 730. Informed patient to stop taking Plavix 7 days prior, 10/27, and his eliquis on 10/30, 4 days prior to procedure but to continue his ASA per Dr. Salgado. Patient was agreeable.
== END ==
PROVIDERS: PCP Family Medicine; Visit Provider Clinical Nurse Specialist Family Health
DX: M51.16 Intervertebral disc disorders with radiculopathy, lumbar region (principal); M48.062 Spinal stenosis, lumbar region with neurogenic claudication
CPT/HCPCS: 99212; G0463

== ENCOUNTER → 2020-11-01 14:18 | Outpatient (CLI) | payer MEDICARE, BC, SELFPAY ==
[2020-11-01 14:58] LABS: Basophils # 0.1 K/mm3 (0-0.2); Basophils % 0.8 % (0.1-2.0); Eosinophils # 0.7 K/mm3 (0.0-0.4); Eosinophils % 6.7 % (0.1-12.0); Hematocrit 41.9 % (42.0-52.0); Lymphocytes # 2.2 K/mm3 (0.7-4.5); Lymphocytes % 20.3 % (10-50); Mean Corpuscular HGB Conc 33.4 g/dL (31.8-35.4); Mean Corpuscular Hemoglobin 31.3 pg (27.0-31.2); Mean Corpuscular Volume 93.5 fl (80-94); Monocytes # 0.5 K/mm3 (0.1-1.0); Monocytes % 4.4 % (1.7-9.3); Neutrophils # 7.4 K/mm3 (1.8-7.8); Neutrophils % 67.8 % (37.0-80.0); Platelet Count 161 K/mm3 (142-424); Red Blood Count 4.47 M/mm3 (4.60-6.20); Red Cell Distribution Width 14.9 % (11.5-17.5); White Blood Count 10.9 K/mm3 (4.8-10.8)
[2020-11-01 15:13] LABS: Chloride 103 mmol/L (98-107); Sodium 140 mmol/L (136-145)
[2020-11-01 15:14] LABS: Potassium 5.2 mmoL/L (3.5-5.1)
[2020-11-01 15:16] LABS: Anion Gap 13.2 mEq/L (5-15); Blood Urea Nitrogen 20 mg/dl (9-20); Carbon Dioxide 29 mmol/L (22.0-30.0); Estimated Glomerular Filt Rate 64 ml/min (>60); GFR (African American) 78 ML/MIN (>60)
[2020-11-01 15:17] LABS: Calcium 9.5 mg/dl (8.4-10.2); Glucose 87 mg/dl (74-100)
== END ==
PROVIDERS: Visit Provider Anesthesiology Pain Medicine
DX: Z01.812 Encounter for preprocedural laboratory examination (principal); Z11.52 Encounter for screening for COVID-19; M48.061 Spinal stenosis, lumbar region without neurogenic claudication; Z51.81 Encounter for therapeutic drug level monitoring; Z79.01 Long term (current) use of anticoagulants
CPT/HCPCS: 36415; 80048; 85025; U0003

== ENCOUNTER 2020-11-03 06:00 | Day surgery (SDC) | payer MEDICARE, BC, SELFPAY ==
[2020-10-31 09:33] VITALS: BMI 31.8
[2020-11-03] VITALS (8 sets, daily range): BP systolic 147–180; BP diastolic 68–77; PULSE 60–77; RESP 18–20; TEMP 36.4–36.6; O2SAT 94–97
[2020-11-03 07:35] LABS: POC Glucose,Bedside 136 (70-110)
--- NOTE | 2020-11-03 08:19 | HMH.OPNOTE ---
Date of procedure: 11/03/20 Pre-op Diagnosis:: DDD of the lumbar spine, lumbar spinal stenosis with neurogenic claudication Post-op Diagnosis:: same Procedure performed:: minimally invasive lumbar decompression Surgeon:: Dania Ochoa MD Anesthesia: MAC Estimated blood loss (mL): 5 Operative findings:: n/a Operative note:: Informed consent was obtained and the risk and benefits of the procedure was explained to the patient. The patient was taken to the operating room and placed prone on the procedure table. The patient was prepped and draped in sterile fashion. C-arm fluoroscopy was used to view the lumbar spine. The skin and subcutaneous tissues were anesthetized using lidocaine. A epidural needle was inserted and advanced into the L4-L5 interspace. After confirmation of needle placement in the epidural space, dye was injected in a contralateral oblique view. There was an epidurogram seen at L3-L4 and L4-L5. Significant stenosis was seen at L3-L4 and L4-L5. The skin and subcutaneous tissues again were anesthetized using lidocaine. An incision was made and a access trocar was inserted and advanced to contact at the superior aspect of the L4 lamina on the left side. And a contralateral oblique view the side was viewed. Using a bone rongeur and tissue sculptor we debulked bone from the L3-L4 and L4-L5 interspace on the left side. We then used the tissue sculptor to debulk ligament at the L3-L4 and L4-L5 interspace on the left side. We then moved over to the right side and debulked bone and ligament from L3-L4 and L4-L5 on the right side. There is opening of the stenosis at L3-L4 and L4-L5 bilaterally. The access trocar was removed. A total of 5 mL's of dye was used. There is good spread of dye above and below this level as well. We injected 80 mg Depo-Medrol through the epidural needle. The epidural needle was removed and dressings were placed. This encounter for exam is for normal comparison and control in a clinical research program Patient was taken to recovery in stable condition. Patient was discharged home neurologically intact and with good relief of pain symptoms. Plan and disposition: We will follow-up with this patient in 2 weeks. Will reevaluate symptoms at that time. Condition: stable Disposition: PACU Complications:: none
--- NOTE | 2020-11-03 08:53 | HMH.ANESCL ---
[facility] Anesthesia Checklist - Structural Data Admitted From: Home Planned Operative Procedure/s: mild Consent for Planned Operative Procedure(s) Verified: Yes - Additional verifications Anesthesia Reactions: No Hx Blood Transfusions: No Blood Transfusion Reaction: No - Airway Assessment C-Spine Mobility Assessed: Yes TMJ Mobility Assessed: Yes Dentition: Dentures-good fit - Neurological Assessment Level of Consciousness: Awake, Alert, Appropriate - Anesthesia Plan Anesthesia Risk discussed: Yes Anesthesia Plan: Verified ASA Class: IV Anesthesia Type: Local & MAC [facility] History I have reviewed the patient's past medical history: Yes Medical History: Reports:: Atrial Fibrillation, Coronary Artery Disease, Diabetes Mellitus Type 2, Hyperlipidemia, Hypertension, Internal Pacemaker (defib), Myocardial Infarction Denies:: Cancer, Diabetes Mellitus Type 1, Lung Disease, MRSA, Seizures *Have you ever received a pneumonia vaccine?: Yes *Have you received a flu vaccine this season?: Yes Other Medical History: Reports: Arthritis, Cataracts, Other. Denies: Blood Transfusion Reaction Anesthesia experience/problems:: none Laterality Cases: Right: Total Hip Replacement, Total Knee Replacement Other Surgeries: Yes: Cardiac Catheterization, Colonoscopy, Coronary Stent, EGD, Pacemaker (defib), Skin Cancer Excision, Other (1979 ruptured disc) Amputation: No Fractures: No - *Social History Last grade of school completed: Some college Smoking Status: Former smoker Tobacco Type: cigarettes # Packs/Day (cigarettes): 1 Alcohol Intake: never Alcohol Intake Frequency:: holidays/special occasions only Substance Use Type: denies use *Occupational Status:: unemployed Housing: house Household Members: spouse *Travel in the last 8 weeks: None Family Hx:: Coronary Artery Disease, Diabetes, Hypertension, Stroke
== END 2020-11-03 12:10 | disposition home or self-care (01) ==
LOC: OR 06:02
PROVIDERS: PCP Family Medicine; Visit Provider Anesthesiology Pain Medicine
DX: M48.062 Spinal stenosis, lumbar region with neurogenic claudication (principal); M51.36 Other intervertebral disc degeneration, lumbar region; Z00.6 Encounter for examination for normal comparison and control in clinical research program; E11.9 Type 2 diabetes mellitus without complications; E78.5 Hyperlipidemia, unspecified; I10 Essential (primary) hypertension; I48.91 Unspecified atrial fibrillation; I25.10 Atherosclerotic heart disease of native coronary artery without angina pectoris; I25.2 Old myocardial infarction; Z95.0 Presence of cardiac pacemaker; M19.90 Unspecified osteoarthritis, unspecified site; Z85.828 Personal history of other malignant neoplasm of skin
CPT/HCPCS: 0275T; 82962; 96374; C1889; J1040; J2704; J3370

== ENCOUNTER → 2020-11-09 14:27 | Outpatient (POV) | payer MEDICARE, BC, SELFPAY ==
[2020-11-09 14:37] VITALS: BP 131/58; PULSE 79; RESP 20; TEMP 36.6; O2SAT 95; BMI 31.8
--- NOTE | 2020-11-09 15:21 | HMH.PAINSOAP ---
[facility] Pain Management SOAP Note Subjective:: Patient is a pleasant 80-year-old white male who presents today for follow-up. 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 He did undergo a mild L3-L4 L4-L5 with Dr. Ochoa on 11/03/2020. Patient is here today with complaints of worsening drainage from his incision site. He says that over the last 2 to 3 days he has had significant yellow to clear drainage with a great deal of bruising to the area. He denies pain with me, however, with the intake nurse, the patient has expressed significant pain to his lower extremities. He reported to Yenifer Kimbrough RN, pain is worse in lower extremities and low back. Patient reported that he thought he was having a stroke . Patient denies any of the symptoms with me during the discussion. He says that his pain has not changed much in the low back or lower extremities. He does say his bilateral groin pain has improved significantly, however. He is continued to have weakness in his right lower extremity which has not changed since the surgery. He does say that he was outside picking tomatoes in his garden for an extended period of time yesterday. Otherwise, he reports that he has limited his activity. He denies pain with me at this time. Review of Systems General: No recent weight changes, no fever, no sleep disturbances Respiratory: No cough, no shortness of air, no recurring pulmonary infections Cardiovascular/peripheral vascular: No chest pain, no palpitations, no edema, no shortness of breath Gastrointestinal: No new onset incontinence, normal bowel movements reported Genitourinary: No new onset incontinence Musculoskeletal: Intermittent low back pain with weakness right lower extremity only with standing Psychiatric: [Normal mood/affect] Neurological: Weakness right lower extremity Objective:: Physical exam General: Alert and oriented x3, no acute distress, pleasant and cooperative, [on room air] Lungs: Respirations even and unlabored, symmetrical chest expansion Eyes: PERRL Musculoskeletal: Flexion and extension of [] lumbar spine] somewhat guarded secondary to pain, strength in upper and lower extremities [5/5], [antalgic gait noted] Neurological: Speech clear, [insole stiffener equal], no gross sensory deficit Integumentary: Incision is well approximated with no redness or warmth to touch. Scant amount of clear drainage noted. Ecchymosis noted to the area. No hematomas noted to the area. Assessment:: Degenerative disc disease lumbar spine with lumbar radiculopathy symptoms, spinal stenosis with neurogenic claudication symptoms Plan:: Dr. Ochoa was contacted regarding the patient. We did order the patient Bactrim DS, however, due to the patient's medications, pharmacy did contact the clinic with drug drug interaction with his antiarrhythmic medication. Due to drug?drug interaction, we will start patient on clindamycin 3 mg 1 tablet p.o. every 8 hours x10 days. He does have significant ecchymosis noted to the area with scant drainage. Patient was previously on Plavix and Eliquis and did hold his medication appropriate time. No hematoma, no redness noted to the site. The area is not warm to touch. He has been afebrile. We will see him back in the clinic at his regularly scheduled appointment. If the patient's symptoms worsen he is to contact the clinic. [facility] History I have reviewed the patient's past medical history: Yes Medical History: Reports:: Atrial Fibrillation, Coronary Artery Disease, Diabetes Mellitus Type 2, Hyperlipidemia, Hypertension, Internal Pacemaker (defib), Myocardial Infarction Denies:: Cancer, Diabetes Mellitus Type 1, Lung Disease, MRSA, Seizures *Have you ever received a pneumonia vaccine?: Yes *Have you received a flu vaccine this season?: Yes Other Medical History: Reports: Arthritis, Cataracts, Othe
== END ==
PROVIDERS: Visit Provider Clinical Nurse Specialist Family Health
DX: M51.16 Intervertebral disc disorders with radiculopathy, lumbar region (principal); M48.062 Spinal stenosis, lumbar region with neurogenic claudication
CPT/HCPCS: 99212; G0463

== ENCOUNTER → 2020-11-20 08:58 | Outpatient (POV) | payer MEDICARE, BC, SELFPAY ==
[2020-11-20 09:09] VITALS: BP 190/81; PULSE 75; RESP 18; O2SAT 94; BMI 31.8
--- NOTE | 2020-11-20 10:12 | HMH.PAINSOAP ---
[facility] Pain Management SOAP Note Subjective:: Is so available patient that had his stimulator removed with spoon more activity like the leads and will Dr. Lira in patient is an 80-year-old white male who presents today for follow-up after mild procedure. 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 Patient did undergo a mild procedure with Dr. Ochoa at L3-L4 L4-L5 area on 11/03/2020. Patient is here today with reports of some improvement to his right lower extremity. Prior to the procedure, the patient was having severe right groin pain and right lower extremity pain. He says his pain has subsided, however, he continues to have heaviness and weakness in his right lower extremity. He does feel that he is slowly improving, however. The patient's incision is well approximated, without drainage, without redness, without edema. Today, the patient's pain is a 3 out of 10. Review of Systems General: No recent weight changes, no fever, no sleep disturbances Respiratory: No cough, no shortness of air, no recurring pulmonary infections Cardiovascular/peripheral vascular: No chest pain, no palpitations, no edema, no shortness of breath Gastrointestinal: No new onset incontinence, normal bowel movements reported Genitourinary: No new onset incontinence Musculoskeletal: Heaviness and weakness in right lower extremity Psychiatric: [Normal mood/affect] Neurological: Heaviness and weakness in right lower extremity Objective:: Physical exam General: Alert and oriented x3, no acute distress, pleasant and cooperative, [on room air] Lungs: Respirations even and unlabored, symmetrical chest expansion Eyes: PERRL Musculoskeletal: Flexion and extension of [] lumbar [spine] somewhat guarded secondary to pain, strength in upper and lower extremities [5/5], slightly antalgic gait noted] Neurological: Speech clear, [mandolin repairer equal], no gross sensory deficit Assessment:: Degenerative disc disease lumbar spine with lumbar radiculopathy symptoms, spinal stenosis with neurogenic claudication symptoms Plan:: Patient is improving. We will plan to see him back in 1 month for reevaluation of symptoms. Patient did want to notify Dr. Ochoa that he was very impressed with the procedure and her concern for him following the procedure. Patient has been instructed to contact the clinic with any concerns before the next appointment. Dr. Webb has reviewed this note and agrees with this plan of care. This note was dictated using voice recognition software and make contain errors or omissions. [facility] History I have reviewed the patient's past medical history: Yes Medical History: Reports:: Atrial Fibrillation, Coronary Artery Disease, Diabetes Mellitus Type 2, Hyperlipidemia, Hypertension, Internal Pacemaker (defib), Myocardial Infarction Denies:: Cancer, Diabetes Mellitus Type 1, Lung Disease, MRSA, Seizures *Have you ever received a pneumonia vaccine?: Yes *Have you received a flu vaccine this season?: Yes Other Medical History: Reports: Arthritis, Cataracts, Other. Denies: Blood Transfusion Reaction Laterality Cases: Right: Total Hip Replacement Other Surgeries: Yes: Cardiac Catheterization, Colonoscopy, Coronary Stent, EGD, Pacemaker (defib), Skin Cancer Excision, Other (1979 ruptured disc) Amputation: No Fractures: No - *Social History Smoking Status: Former smoker Tobacco Type: cigarettes # Packs/Day (cigarettes): 1 Alcohol Intake: never Alcohol Intake Frequency:: holidays/special occasions only Substance Use Type: denies use *Occupational Status:: retired Housing: house Household Members: spouse *Travel in the last 8 weeks: None Family Hx:: Coronary Artery Disease, Diabetes, Hypertension, Stroke
== END ==
PROVIDERS: Visit Provider Clinical Nurse Specialist Family Health
DX: M51.16 Intervertebral disc disorders with radiculopathy, lumbar region (principal); M48.062 Spinal stenosis, lumbar region with neurogenic claudication
CPT/HCPCS: 99212; G0463

== ENCOUNTER → 2020-12-08 13:27 | Outpatient (CLI) | payer MEDICARE, BC, SELFPAY | PROVIDERS: Visit Provider Internal Medicine Gastroenterology | DX: Z01.812 Encounter for preprocedural laboratory examination (principal); Z11.52 Encounter for screening for COVID-19; Z13.810 Encounter for screening for upper gastrointestinal disorder | CPT/HCPCS: C9803; U0003; U0005 ==

== ENCOUNTER 2020-12-11 09:58 | Day surgery (SDC) | payer MEDICARE, BC, SELFPAY ==
[2020-12-07 14:54] VITALS: BMI 31.1
[2020-12-11 10:53] VITALS: BP 172/64; PULSE 67; RESP 16; TEMP 36.2; O2SAT 94
[2020-12-11 11:00] LABS: POC Glucose,Bedside 162 (70-110)
--- NOTE | 2020-12-11 12:09 | HMH.ANESCL ---
[facility] Anesthesia Checklist - Patient Identification Patient Identification: Arm Band - Structural Data Admitted From: Home Planned Operative Procedure/s: egd Consent for Planned Operative Procedure(s) Verified: Yes Verified Documents: Surgical Consent, History and Physical - NPO Status Verified Time NPO: 00:00 - Additional verifications Anesthesia Reactions: No Hx Blood Transfusions: No Blood Transfusion Reaction: No - Airway Assessment C-Spine Mobility Assessed: Yes (mp2) TMJ Mobility Assessed: Yes Dentition: Edentulous - Neurological Assessment Level of Consciousness: Awake, Alert - Anesthesia Plan Anesthesia Risk discussed: Yes Anesthesia Plan: Verified ASA Class: III Anesthesia Type: MAC [facility] History I have reviewed the patient's past medical history: Yes Medical History: Reports:: Atrial Fibrillation, Coronary Artery Disease, Diabetes Mellitus Type 2, Hyperlipidemia, Hypertension, Myocardial Infarction Denies:: Cancer, Diabetes Mellitus Type 1, Internal Pacemaker, Lung Disease, MRSA, Seizures *Have you ever received a pneumonia vaccine?: Yes *Have you received a flu vaccine this season?: Yes Other Medical History: Reports: Arthritis, Cataracts, Other. Denies: Blood Transfusion Reaction Anesthesia experience/problems:: nac Laterality Cases: Right: Total Hip Replacement, Total Knee Replacement Other Surgeries: Yes: Cardiac Catheterization, Colonoscopy, Coronary Stent, EGD, Skin Cancer Excision, Other (1979 ruptured disc). No: Pacemaker Amputation: No Fractures: No - *Social History Last grade of school completed: High school graduate Smoking Status: Former smoker Tobacco Type: cigarettes # Packs/Day (cigarettes): 1 Alcohol Intake: never Alcohol Intake Frequency:: holidays/special occasions only Substance Use Type: denies use *Occupational Status:: retired Housing: house Household Members: spouse *Travel in the last 8 weeks: None Family Hx:: Coronary Artery Disease, Diabetes, Hypertension, Stroke
--- NOTE | 2020-12-11 12:30 | P.PCN_ITS ---
[facility] Procedure Note Procedure Note:: Upper Endoscopy Procedure Report: Esophagogastroduodenoscopy with cold biopsies Endoscopost: Trevor Dowling II, MD Referring Physician: Panda Condon MD Date of Procedure: December 11, 2020 Equipment: Olympus GIF 190 standard upper endoscope Sedation: MAC sedation Indications: Mr. 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 He has had surveillance EGD in July 2014 and again in August 2017. Biopsies each time show Knowles's esophagus without dysplasia. He reports no heartburn, reflux, indigestion or dysphagia. He has no esophageal chest pain/spasm or abdominal pain. He does take PPI therapy with pantoprazole. Procedure: Prior to the procedure, a history and physical exam was performed, and patient's medications and allergies were reviewed. The risks, benefits and alternatives of the sedation and procedure were discussed with the patient. All questions were answered and informed consent was obtained. The patient was brought to the procedure room. Patient identification and proposed procedure were verified by the physician and the nurse. The patient was placed in a left lateral decubitus position and the scope was passed under direct vision. Throughout the procedure, the patient's blood pressure, pulse, and oxygen saturations were monitored continuously. The upper GI endoscopy was accomplished without difficulty. The patient tolerated the procedure well. Findings: The scope was passed directly into the upper esophagus and advanced to the third portion of the duodenum. The post bulbar duodenum and duodenal bulb were normal with normal mucosa and conniventes. The scope was withdrawn through a normal duodenal bulb and pylorus into the stomach. There was some bile reflux with mild linear reactive gastropathy of the antrum. The remainder of the body and fundus of the stomach were grossly normal. Upon retroflexion there was a 2 to 3 cm hiatal hernia. The diaphragmatic hiatus was at 40 to 41 cm (from the incisors), the top of the gastric folds was at 38 cm. The top of the squamocolu mnar junction was maximally at 32 cm and circumferentially at 35 cm leaving a 3 to 6 cm segment of Knowles's esophagus ([place] classification C3M6). Directed biopsies were taken using NBI (narrowband imaging) at 35 cm from the incisors and 33 cm from the incisors. 4 biopsies were taken circumferentially at each location. There was no evidence of any dysplasia by the NBI. There was no reflux esophagitis or esophageal strictures. Impression: 1. Knowles's esophagus [place] classification C3M6 2. Small 2 to 3 cm hiatal hernia 3. Mild reactive gastropathy with bile reflux Plan: I will follow-up the biopsies. If the patient does not have any evidence of dysplasia, I am not convinced that he will need further surveillance endoscopy. I would continue PPI therapy (pantoprazole or omeprazole) as long- term maintenance therapy.
[2020-12-11 12:33] VITALS: BP 115/62; PULSE 60; RESP 18; TEMP 36.3; O2SAT 96
[2020-12-11 12:43] VITALS: BP 120/65; PULSE 61; RESP 18; O2SAT 95
[2020-12-11 12:53] VITALS: BP 125/83; PULSE 60; RESP 18; O2SAT 95
[2020-12-11 13:10] VITALS: BP 178/71; PULSE 62; RESP 18; O2SAT 96
== END 2020-12-11 13:13 | disposition home or self-care (01) ==
LOC: OUTP 09:59
PROVIDERS: PCP Family Medicine; Visit Provider Internal Medicine Gastroenterology
PROC: 0DJ08ZZ Inspection of Upper Intestinal Tract, Via Natural or Artificial Opening Endoscopic (ICD-10-PCS; CPT 43235; principal; 2020-12-11 11:30)
DX: K22.70 Barrett's esophagus without dysplasia (principal); K44.9 Diaphragmatic hernia without obstruction or gangrene; K31.9 Disease of stomach and duodenum, unspecified; E11.9 Type 2 diabetes mellitus without complications; I48.91 Unspecified atrial fibrillation; I25.10 Atherosclerotic heart disease of native coronary artery without angina pectoris; E78.5 Hyperlipidemia, unspecified; I10 Essential (primary) hypertension; I25.2 Old myocardial infarction; Z87.891 Personal history of nicotine dependence; Z82.3 Family history of stroke; Z83.3 Family history of diabetes mellitus
CPT/HCPCS: 43239; 82962; 88305

== ENCOUNTER → 2020-12-18 08:35 | Outpatient (POV) | payer MEDICARE, BC, SELFPAY ==
[2020-12-18 08:44] VITALS: BP 203/91; PULSE 81; RESP 18; O2SAT 95; BMI 31.1
--- NOTE | 2020-12-18 08:57 | HMH.PAINSOAP ---
[facility] Pain Management SOAP Note Subjective:: Patient is an 80-year-old white male who presents today for follow-up. 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 The patient underwent a mild procedure at L3-L4 L4-L5 on 11/03/2020. Patient says that he is currently undergoing physical therapy. He says that his pain has subsided in his bilateral lower extremities, however, he does continue to have weakness since the procedure. Patient does have right groin pain at this time. He does have a history of a right hip replacement approximately 2 years ago. He denies any back pain. He says that the pain is tolerable to his right groin, at a 4 out of 10. He says that he is slowly improving, however, had hoped to improve quicker. Review of Systems General: No recent weight changes, no fever, no sleep disturbances Respiratory: No cough, no shortness of air, no recurring pulmonary infections Cardiovascular/peripheral vascular: No chest pain, no palpitations, no edema, no shortness of breath Gastrointestinal: No new onset incontinence, normal bowel movements reported Genitourinary: No new onset incontinence Musculoskeletal: Right groin pain Psychiatric: [Normal mood/affect] Neurological: Weakness lower extremities Objective:: Physical exam General: Alert and oriented x3, no acute distress, pleasant and cooperative, [on room air] Lungs: Respirations even and unlabored, symmetrical chest expansion Eyes: PERRL Musculoskeletal: Flexion and extension of right lower extremity somewhat guarded secondary to pain, strength in upper and lower extremities [5/5], [antalgic gait noted] Neurological: Speech clear, [paper wrapping machine operator equal], no gross sensory deficit Assessment:: Degenerative disc disease lumbar spine with lumbar radiculopathy symptoms, spinal stenosis with neurogenic claudication symptoms Plan:: We will follow up with the patient in 2 months. He is continuing to get improvement with pain in his lower extremities. He does have weakness, and is currently undergoing physical therapy. We will plan to follow-up with the patient at that time for reevaluation of symptoms. Patient has been instructed to contact the clinic with any concerns before the next appointment. Dr. Webb has reviewed this note and agrees with this plan of care. This note was dictated using voice recognition software and make contain errors or omissions. [facility] History I have reviewed the patient's past medical history: Yes Medical History: Reports:: Atrial Fibrillation, Coronary Artery Disease, Diabetes Mellitus Type 2, Hyperlipidemia, Hypertension, Myocardial Infarction Denies:: Cancer, Diabetes Mellitus Type 1, Internal Pacemaker, Lung Disease, MRSA, Seizures *Have you ever received a pneumonia vaccine?: Yes *Have you received a flu vaccine this season?: No Other Medical History: Reports: Arthritis, Cataracts, Other. Denies: Blood Transfusion Reaction Laterality Cases: Right: Total Hip Replacement Other Surgeries: Yes: Cardiac Catheterization, Colonoscopy, Coronary Stent, EGD, Skin Cancer Excision, Other (1978 ruptured disc). No: Pacemaker Amputation: No Fractures: No - *Social History Smoking Status: Former smoker Tobacco Type: cigarettes # Packs/Day (cigarettes): 1 Alcohol Intake: never Alcohol Intake Frequency:: holidays/special occasions only Substance Use Type: denies use *Occupational Status:: unemployed, retired Housing: house Household Members: spouse *Travel in the last 8 weeks: None Family Hx:: Coronary Artery Disease, Diabetes, Hypertension, Stroke
== END ==
PROVIDERS: Visit Provider Clinical Nurse Specialist Family Health
DX: M51.16 Intervertebral disc disorders with radiculopathy, lumbar region (principal); M48.062 Spinal stenosis, lumbar region with neurogenic claudication
CPT/HCPCS: 99212; G0463

== ENCOUNTER → 2021-02-12 08:20 | Outpatient (POV) | payer MEDICARE, BC, SELFPAY ==
[2021-02-12 08:37] VITALS: BP 181/79; PULSE 86; RESP 18; O2SAT 96; BMI 31.1
--- NOTE | 2021-02-12 08:53 | P.CONS_ITS ---
[facility] Pain Management SOAP Note Subjective:: Patient is an 80-year-old white male who presents today for follow-up. He did undergo mild procedure on 11/03/2020 at L3-L4 L4-L5 for spinal stenosis and neurogenic claudication symptoms. He is continuing to improve with his symptoms. He says he is still weak when doing prolonged activity, that says he does feel he has gotten about 40 to 50% relief since the procedure. He says that he has not been active over the last few days but will be doing more activity in the coming [place]. He is planning pulmonary rehabilitation this upcoming week as well. He does rate his pain a 2 out of 10 today. Review of Systems General: No recent weight changes, no fever, no sleep disturbances Respiratory: No cough, no shortness of air, no recurring pulmonary infections Cardiovascular/peripheral vascular: No chest pain, no palpitations, no edema, no shortness of breath Gastrointestinal: No new onset incontinence, normal bowel movements reported Genitourinary: No new onset incontinence Musculoskeletal: Intermittent weakness bilateral lower extremities Psychiatric: [Normal mood/affect] Neurological: Intermittent weakness bilateral lower extremities Objective:: Physical exam General: Alert and oriented x3, no acute distress, pleasant and cooperative Lungs: Respirations even and unlabored, symmetrical chest expansion Eyes: PERRL Musculoskeletal: Flexion and extension of lumbar [spine] somewhat guarded secondary to pain, [antalgic gait noted] Neurological: Speech clear, no gross sensory deficit Assessment:: Degenerative disc disease lumbar spine with radiculopathy symptoms, spinal stenosis with neurogenic claudication symptoms Plan:: Patient is following up after mild procedure on 11/03/2020. He is continuing. He would like to follow-up with us as needed. Overall he is very pleased with results of the procedure advised he can contact clinic if he has any concerns Patient has been instructed to contact the clinic with any concerns before the next appointment. Dr. Webb has reviewed this note and agrees with this plan of care. This note was dictated using voice recognition software and make contain errors or omissions. [facility] History I have reviewed the patient's past medical history: Yes Medical History: Reports:: Atrial Fibrillation, Coronary Artery Disease, Diabetes Mellitus Type 2, Hyperlipidemia, Hypertension, Myocardial Infarction Denies:: Cancer, Diabetes Mellitus Type 1, Internal Pacemaker, Lung Disease, MRSA, Seizures *Have you ever received a pneumonia vaccine?: Yes *Have you received a flu vaccine this season?: Yes Other Medical History: Reports: Arthritis, Cataracts, Other. Denies: Blood Transfusion Reaction Laterality Cases: Right: Total Hip Replacement Other Surgeries: Yes: Cardiac Catheterization, Colonoscopy, Coronary Stent, EGD, Skin Cancer Excision, Other (1978 ruptured disc). No: Pacemaker Amputation: No Fractures: No - *Social History Smoking Status: Former smoker Tobacco Type: cigarettes # Packs/Day (cigarettes): 1 Alcohol Intake: never Alcohol Intake Frequency:: holidays/special occasions only Substance Use Type: denies use *Occupational Status:: unemployed Housing: house Household Members: spouse *Travel in the last 8 weeks: None Family Hx:: Coronary Artery Disease, Diabetes, Hypertension, Stroke
== END ==
PROVIDERS: Visit Provider Clinical Nurse Specialist Family Health
DX: M51.16 Intervertebral disc disorders with radiculopathy, lumbar region (principal); M48.062 Spinal stenosis, lumbar region with neurogenic claudication
CPT/HCPCS: 99212; G0463

== ENCOUNTER 2021-02-15 13:58 | Outpatient (RCR) | payer MEDICARE, BC, SELFPAY | END 2021-03-15 13:59 | disposition home or self-care (01) | LOC: PT 13:58 | PROVIDERS: Visit Provider Internal Medicine Cardiovascular Disease | DX: I25.10 Atherosclerotic heart disease of native coronary artery without angina pectoris (principal); R06.09 Other forms of dyspnea; I50.22 Chronic systolic (congestive) heart failure | CPT/HCPCS: G0237; G0238; G0424 ==

== ENCOUNTER → 2021-04-30 13:59 | Outpatient (POV) | payer MEDICARE, BC, SELFPAY ==
[2021-04-30 14:20] VITALS: BP 139/65; PULSE 76; RESP 18; O2SAT 96; BMI 32.5
--- NOTE | 2021-04-30 14:32 | HMH.PAINSOAP ---
[facility] Pain Management SOAP Note Subjective:: Patient is a pleasant 80-year-old male who comes in today for follow-up. 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 Patient has had a mild procedure on 11/03/2020 at L3-L4, L4-L5. Patient says that he still continues to get relief from this procedure. Today, patient is complaining of worsening neck pain that has radiating pain to bilateral shoulders. Patient also states that he gets radiating numbness and paresthesia to bilateral arms and hands, worse on the left. Patient is currently not taken any medications for now. Patient says that nothing helps with his pain. His pain has woken him up from sleep in the last few weeks. Patient says that he has issues backing up his car because he cannot turn his head. From his MRI on 07/30/2019, patient has multilevel degenerative disc disease of the cervical spine and multilevel cervical spondylosis with bulging disc. According to patient, he did physical therapy on his neck a while back that seemed to help temporarily. He rates his pain today as 7 out of 10. Patient is currently taking gabapentin 300 mg that is prescribed by Dr. Condon. His Néstor number is [id number] and an active morphine equivalent of 0. ORT score is low risk Review of Systems General: No recent weight changes, no fever, no sleep disturbances Respiratory: No cough, no shortness of air, no recurring pulmonary infections Cardiovascular/peripheral vascular: No chest pain, no palpitations, no edema, no shortness of breath Gastrointestinal: No new onset incontinence, normal bowel movements reported Genitourinary: No new onset incontinence Musculoskeletal: Neck pain, improving low back pain Psychiatric: [Normal mood/affect] Neurological: [Denies weakness in extremities], [denies balance issues] Objective:: Physical exam General: Alert and oriented x3, no acute distress, pleasant and cooperative Lungs: Respirations even and unlabored, symmetrical chest expansion Eyes: PERRL Musculoskeletal: Flexion and extension of cervical and lumbar [spine] somewhat guarded secondary to pain, cervical spineand bilateral shoulders are nontender to palpation Neurological: Speech clear, no gross sensory deficit, bilateral extremities str 5/5 Assessment:: Degenerative disc disease of the cervical and lumbar spine with cervical and lumbar radiculopathy Cervical and lumbar spondylosis Cervical and lumbar facet arthropathy Plan:: PROCEDURE: MR CERVICAL SPINE WO CON CLINICAL INDICATION: PAIN IN LEFT ARM, CERVICAL DISC DISEASE Bilateral arm and hand pain and numbness left side worse than right, cervical spondylosis COMPARISON: XR CERVICAL SPINE 5V from 06/01/2019 TECHNIQUE: Standard multiplanar multiecho sequences are performed without contrast. 3-D MIP and myelographic images are also rendered and reviewed FINDINGS: There is normal alignment. Cranial cervical junction has an unremarkable appearance. There is mild diffuse increased T2 signal within the lorene and may be due to ischemic gliotic change from microvascular disease. There is straightening of the cervical lordosis. C2-C3: Unremarkable. C3-C4: Degenerative disc disease with bulging disc. There is endplate hypertrophic change with a broad-based central left paracentral and foraminal disc osteophyte complex along with uncovertebral and facet hypertrophy with resultant severe left lateral recess and foraminal narrowing. There is mild impingement upon the anterior left aspect of the cord with mild contour deformity of the cord on the left anteriorly. C4-C5: Degenerate disc disease with mild uncovertebral hypertrophy and mild bilateral foraminal narrowing. C5-C6: Degenerate disc disease. There is loss of disc space. C6-C7: Degenerate disc disease with mild bulging disc along with bilateral foraminal narrowing from uncovertebral hyper
== END ==
PROVIDERS: Visit Provider Clinical Nurse Specialist Family Health
DX: M50.10 Cervical disc disorder with radiculopathy, unspecified cervical region (principal); M47.812 Spondylosis without myelopathy or radiculopathy, cervical region; M47.816 Spondylosis without myelopathy or radiculopathy, lumbar region; M54.02 Panniculitis affecting regions of neck and back, cervical region; M54.06 Panniculitis affecting regions of neck and back, lumbar region
CPT/HCPCS: 99212; G0463

== ENCOUNTER 2021-05-18 12:59 | Day surgery (SDC) | payer MEDICARE, BC, SELFPAY ==
[2021-05-18 13:05] VITALS: BP 153/72; BP 193/80; PULSE 79; RESP 20; TEMP 37.1; O2SAT 91; O2SAT 94; BMI 32.5
[2021-05-18 13:18] VITALS: BP 190/80; PULSE 80; RESP 18; O2SAT 95
--- NOTE | 2021-05-18 13:29 | HMH.PMPROC ---
- Procedure Date: 05/18/21 Time: 13:29 Anesthesiologist:: Bryan Webb MD Complications:: None Pre-procedure Diagnosis:: Degenerative disc disease of lumbar spine with lumbar radiculopathy symptoms Post-procedure Diagnosis:: Same Indications for Procedure:: Patient is a pleasant 80-year-old white male who we are treating for neck pain with cervical radicular symptoms. He is status post mill invasive lumbar decompression at L3-L4 L4-L5. He is doing very well from this. We will do a cervical epidural steroid injection today to help him with his pain symptoms. Procedure Details:: Cervical epidural steroid injection under fluoroscopy Informed consent was obtained and the risks and benefits of the procedure was explained to the patient. The patient was taken to the procedure room placed prone on the procedure table. The neck was prepped using ChloraPrep. The skin and subcutaneous tissues were anesthetized using lidocaine. I placed a 18-gauge epidural needle into the C5-C6 interspace and advanced using [id number] to air and fluoroscopic guidance. After confirmation of needle placement in the epidural space with dye, I injected 3 mL's lidocaine 1.5% and Depo-Medrol 80 mg. The patient tolerated the procedure well with no complications. Plan and Disposition:: We will follow-up with him in 2 weeks. Will reevaluate his symptoms at that time.
[2021-05-18 13:34] VITALS: BP 155/62; PULSE 74; RESP 20; O2SAT 90
== END 2021-05-18 13:35 | disposition home or self-care (01) ==
LOC: SC.PAINP 13:01
PROVIDERS: PCP Family Medicine; Visit Provider Anesthesiology
DX: M51.16 Intervertebral disc disorders with radiculopathy, lumbar region (principal); I25.2 Old myocardial infarction; E78.5 Hyperlipidemia, unspecified; I10 Essential (primary) hypertension; I48.91 Unspecified atrial fibrillation; E11.9 Type 2 diabetes mellitus without complications
CPT/HCPCS: 62321; J1040; Q9966

== ENCOUNTER → 2021-06-04 10:11 | Outpatient (POV) | payer MEDICARE, BC, SELFPAY ==
[2021-06-04 11:12] VITALS: BP 143/71; PULSE 75; RESP 18; TEMP 36.7; O2SAT 92; BMI 30.8
--- NOTE | 2021-06-04 12:18 | HMH.PAINSOAP ---
[facility] Pain Management SOAP Note Subjective:: She has a pleasant 82-year-old male who comes in here today for follow-up after a cervical epidural steroid injection on May 18, 2021. Patient is currently being treated for degenerative disc disease of the cervical and lumbar spine with cervical and lumbar radiculopathy symptoms. He had a MILD procedure in the past. After the cervical epidural steroid injection, patient states that he had 80 to 90% relief of symptoms. He rates his pain today as 3 out of 10. He says that he is continually getting relief from the injection. The only issue that he has is that he still having some left arm intermittent numbness. Patient is currently taking gabapentin 300 mg 3 times a day that is prescribed by Dr. Condon. His Néstor number is [id number] with an active morphine equivalent of 0. Review of Systems General: No recent weight changes, no fever, no sleep disturbances Respiratory: No cough, no shortness of air, no recurring pulmonary infections Cardiovascular/peripheral vascular: No chest pain, no palpitations, no edema, no shortness of breath Gastrointestinal: No new onset incontinence, normal bowel movements reported Genitourinary: No new onset incontinence Musculoskeletal: Neck pain, low back pain Psychiatric: [Normal mood/affect] Neurological: [Denies weakness in extremities], [denies balance issues] Objective:: Physical exam General: Alert and oriented x3, no acute distress, pleasant and cooperative Lungs: Respirations even and unlabored, symmetrical chest expansion Eyes: PERRL Musculoskeletal: Flexion and extension of cervical and lumbar [spine] somewhat guarded secondary to pain, [antalgic gait noted] Neurological: Speech clear, no gross sensory deficit Assessment:: Degenerative disc disease of the cervical and lumbar spine with cervical and lumbar radiculopathy symptoms Plan:: Patient is continually having relief of symptoms after the cervical epidural steroid injection. We will follow-up with the patient in 3 months. Patient is welcome to call the clinic if he has increasing neck pain. Patient has been instructed to contact the clinic with any concerns before the next appointment. This note was dictated using voice recognition software and may contain errors or omissions. [facility] History Medical History: Reports:: Atrial Fibrillation, Coronary Artery Disease, Diabetes Mellitus Type 2, Hyperlipidemia, Hypertension, Myocardial Infarction Denies:: Cancer, Diabetes Mellitus Type 1, Internal Pacemaker, Lung Disease, MRSA, Seizures *Have you ever received a pneumonia vaccine?: Yes *Have you received a flu vaccine this season?: Yes Other Medical History: Reports: Arthritis, Cataracts, Other. Denies: Blood Transfusion Reaction Laterality Cases: Right: Total Hip Replacement Other Surgeries: Yes: Cardiac Catheterization, Colonoscopy, Coronary Stent, EGD, Skin Cancer Excision, Other (1978 ruptured disc). No: Pacemaker Amputation: No Fractures: No - *Social History Smoking Status: Former smoker Tobacco Type: cigarettes # Packs/Day (cigarettes): 1 Alcohol Intake: never Alcohol Intake Frequency:: holidays/special occasions only Substance Use Type: denies use *Occupational Status:: retired Housing: house Household Members: spouse *Travel in the last 8 weeks: None Family Hx:: Coronary Artery Disease, Diabetes, Hypertension, Stroke
== END ==
PROVIDERS: Visit Provider Student in an Organized Health Care Education/Training Program
DX: M50.10 Cervical disc disorder with radiculopathy, unspecified cervical region (principal); M54.16 Radiculopathy, lumbar region
CPT/HCPCS: 99212; G0463

== ENCOUNTER → 2021-09-03 08:52 | Outpatient (POV) | payer MEDICARE, BC, SELFPAY ==
[2021-09-03 09:48] VITALS: BP 191/87; PULSE 67; RESP 18; TEMP 36.8; O2SAT 95; BMI 29.8
--- NOTE | 2021-09-03 10:01 | HMH.PAINSOAP ---
[facility] Pain Management SOAP Note Subjective:: Patient is a pleasant 81-year-old male who presents today for follow-up. Patient is currently being treated for degenerative disc disease of the cervical and lumbar spine with cervical and lumbar radiculopathy symptoms. He had a mild procedure in the past. We have been managing this patient with injective therapy. His last cervical epidural steroid injection on May 18, 2021 provided 80 to 90% relief of symptoms. Today, patient presents for his 3-month follow-up and he says that he has been having increasing neck pain that radiates mainly to his left arm. He does take gabapentin 300 mg 3 times a day that is prescribed by an outside clinic. He is wanting a repeat injection scheduled today. He rates his pain today as 5 out of 10. Néstor [phone] with an active morphine equivalent of 0. Review of Systems: General: No recent weight changes, no fever, no sleep disturbances Respiratory: No cough, no shortness of air, no recurring pulmonary infections Cardiovascular/peripheral vascular: No chest pain, no palpitations, no edema, no shortness of breath Gastrointestinal: No new onset incontinence, normal bowel movements reported Genitourinary: No new onset incontinence Musculoskeletal: Neck pain, low back pain Psychiatric: [Normal mood/affect] Neurological: [Denies weakness in extremities], [denies balance issues] Objective:: Physical Exam: General: Alert and oriented x3, no acute distress, pleasant and cooperative Lungs: Respirations even and unlabored, symmetrical chest expansion Eyes: PERRL Musculoskeletal: Flexion and extension of cervical and lumbar [spine] somewhat guarded secondary to pain, [antalgic gait noted] Neurological: Speech clear, no gross sensory deficit Assessment:: Degenerative disease of the cervical and lumbar spine with cervical and lumbar radiculopathy symptoms Plan:: Patient has been having worsening neck pain that radiates mainly to his left arm. He does have some weakness, numbness, pain to his left arm today. We will schedule the patient for a cervical epidural steroid injection at C6-C7. Risk and benefits have been discussed with the patient. Patient would like to proceed with this procedure. Patient does take Plavix and Eliquis for his atrial fibrillation. We will reach out to Dr. Salgado to see if he can stop these medications prior to his procedure. Patient has been instructed to contact the clinic with any concerns before the next appointment. Dr. Webb has reviewed this note and agrees with this plan of care. This note was dictated using voice recognition software and make contain errors or omissions. [facility] History Medical History: Reports:: Atrial Fibrillation, Coronary Artery Disease, Diabetes Mellitus Type 2, Hyperlipidemia, Hypertension, Myocardial Infarction Denies:: Cancer, Diabetes Mellitus Type 1, Internal Pacemaker, Lung Disease, MRSA, Seizures *Have you ever received a pneumonia vaccine?: Yes *Have you received a flu vaccine this season?: Yes Other Medical History: Reports: Arthritis, Cataracts, Other. Denies: Blood Transfusion Reaction Laterality Cases: Right: Total Hip Replacement Other Surgeries: Yes: Cardiac Catheterization, Colonoscopy, Coronary Stent, EGD, Skin Cancer Excision, Other (1978 ruptured disc). No: Pacemaker Amputation: No Fractures: No - *Social History Smoking Status: Former smoker Tobacco Type: cigarettes # Packs/Day (cigarettes): 1 Alcohol Intake: never Alcohol Intake Frequency:: holidays/special occasions only Substance Use Type: denies use *Occupational Status:: retired Housing: house Household Members: spouse *Travel in the last 8 weeks: None Family Hx:: Coronary Artery Disease, Diabetes, Hypertension, Stroke
== END ==
PROVIDERS: Visit Provider Student in an Organized Health Care Education/Training Program
DX: M51.16 Intervertebral disc disorders with radiculopathy, lumbar region (principal); M50.123 Cervical disc disorder at C6-C7 level with radiculopathy
CPT/HCPCS: 99212; G0463

== ENCOUNTER 2021-11-06 09:47 | Day surgery (SDC) | payer MEDICARE, BC, SELFPAY ==
[2021-11-06 09:52] VITALS: BP 123/66; PULSE 65; RESP 20; TEMP 36.6; O2SAT 97; BMI 30.5
[2021-11-06 10:40] VITALS: BP 147/68; PULSE 67; RESP 20; O2SAT 96
--- NOTE | 2021-11-06 10:47 | HMH.PMPROC ---
- Procedure Date: 11/06/21 Time: 10:47 Anesthesiologist:: Dioni Sifuentes CRNA Complications:: None Pre-procedure Diagnosis:: Degenerative disc disease cervical spine multilevels. Cervical radiculopathy. Post-procedure Diagnosis:: Same Indications for Procedure:: This patient is a very pleasant 81-year-old male who presents to our clinic today for cervical epidural steroid injection. Patient describes his cervical pain as constant, dull, aching. Also, bilateral arm radicular symptoms into the hands. He describes his radicular symptoms as numbness and tingling in the bilateral arms and hands. Patient is taking Eliquis and Plavix. However, patient states he has been off each medication for 7 days. Procedure Details:: Procedure:Cervical epidural steroid injection Informed consent was obtained and the risks and benefits of the procedure were explained to the patient. The patient was taken to the procedure room and noninvasive monitors placed, including noninvasive blood pressure cuff and pulse oximeter. The neck was prepped using Betadine as a cleansing solution. The C6-C7 interspace was palpated. The skin and subcutaneous tissues were anesthetized using lidocaine 1.5% and a 25-gauge needle. After this an 18-gauge Touhy epidural needle was placed into the C6-C7 interspace and advanced using loss of resistance to air until the epidural space was encountered. After confirmation of needle placement in the epidural space, a solution containing lidocaine 1.5%, 4 mL and Depo-Medrol 80 mg was incrementally injected into the cervical epidural space.~ The patient tolerated the procedure well with no complications. The patient was observed in the Pain Clinic and then discharged home neurologically intact. Plan and Disposition:: Patient was discharged without incident.
== END 2021-11-06 10:40 | disposition home or self-care (01) ==
LOC: SC.PAINP 09:49
PROVIDERS: PCP Family Medicine; Visit Provider Nurse Anesthetist, Certified Registered
DX: M50.123 Cervical disc disorder at C6-C7 level with radiculopathy (principal)
CPT/HCPCS: 62320; 62321; J1040; Q9966

== ENCOUNTER → 2021-11-21 10:21 | Outpatient (POV) | payer MEDICARE, BC, SELFPAY ==
[2021-11-21 10:39] VITALS: BP 161/73; PULSE 74; RESP 18; TEMP 36.6; O2SAT 94; BMI 30.5
--- NOTE | 2021-11-21 12:41 | EXP.PAIN.SOA ---
[facility] Pain Management SOAP Note Subjective:: Patient is a pleasant 81-year-old male that presents today for follow-up of cervical epidural steroid injection of C6-C7 on 11/06/2021. We are currently treating the patient for degenerative disc disease of cervical and lumbar spine multilevels with cervical and lumbar radiculopathy symptoms. Patient states he has had significant improvement since having this cervical epidural injection. He rates roughly 60% pain relief and states he feels like it is still helping. Today he rates his pain a 3 out of 10 and states his pain is in his neck and his left shoulder. 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 Patient denies any new trauma or injury to the site. Patient has had a [place] LD procedure in the past. We are currently managing this patient with injective therapy. He is currently managed with gabapentin 300 mg 3 times a day written by Dr. Condon. He denies any side effects from this medication. He states this medication is helping manage his pain. Patient has seen physical therapy about 2 to 3 years ago and states they did provide moderate relief of symptoms. Patient is a diabetic with his last A1c being 7.2. Patient does state that he has had a blood glucose of over 300 a couple of times since having the cervical epidural. His Néstor is [id number]. Its been reviewed and appropriate. Review of Systems: General: No recent weight changes, no fever, no sleep disturbances Respiratory: No cough, no shortness of air, no recurring pulmonary infections Cardiovascular/peripheral vascular: No chest pain, no palpitations, no edema, no shortness of breath Gastrointestinal: No new onset incontinence, normal bowel movements reported Genitourinary: No new onset incontinence Musculoskeletal: Neck pain, bilateral shoulder pain Psychiatric: [Normal mood/affect] Neurological: [Denies weakness in extremities], [denies balance issues] Objective:: Physical Exam: General: Alert and oriented x3, no acute distress, pleasant and cooperative Lungs: Respirations even and unlabored, symmetrical chest expansion Eyes: PERRL Musculoskeletal: Flexion and extension of cervical [spine] somewhat guarded secondary to pain, [antalgic gait noted]. Point tenderness along bilateral cervical paraspinous and trapezius muscles Neurological: Speech clear, no gross sensory deficit Assessment:: Degenerative disc disease of cervical and lumbar spine with cervical and lumbar radiculopathy symptoms, myofascial pain bilateral cervical paraspinous and trapezius muscles Plan:: Patient has had significant improvement in his upper back symptoms since having his cervical epidural steroid injection. He is having worsening pain along his bilateral neck and shoulders. Patient had point tenderness along bilateral cervical paraspinous and trapezius muscles during today's exam. I have discussed with the patient regarding trying trigger point injections at these locations. Risk and benefits were discussed with the patient. He would like to proceed forward with these injections. We will plan on scheduling these injections however we will make them about a month out due to his diabetes. I have counseled the patient that he can call and schedule these injections sooner if needed. I did also discussed with the patient regarding doing a referral to physical therapy. At this time he would like to wait and see how he feels later. We will schedule him for a TPI of his bilateral cervical and paraspinous trapezius muscles. Patient has been instructed to contact the clinic with any concerns before the next appointment. Dr. Webb has reviewed this note and agrees with this plan of care. This note was dictated using voice recognition software and make contain errors or omissions. PFSH PFSH Social History Smoking Status: Never smoker alcohol intake: never substance use type: denies use current occupational status: other house
== END ==
PROVIDERS: PCP Family Medicine; Visit Provider Nurse Practitioner Family
DX: M50.10 Cervical disc disorder with radiculopathy, unspecified cervical region (principal); M51.16 Intervertebral disc disorders with radiculopathy, lumbar region; M79.18 Myalgia, other site
CPT/HCPCS: 99212; G0463

== ENCOUNTER 2021-12-25 09:02 | Day surgery (SDC) | payer MEDICARE, BC, SELFPAY ==
[2021-12-25 09:20] VITALS: BP 123/72; PULSE 100; RESP 18; TEMP 36.7; O2SAT 100; BMI 31.1
[2021-12-25 09:36] VITALS: BP 175/76; PULSE 78; RESP 18; O2SAT 98
[2021-12-25 09:37] VITALS: BP 175/76; PULSE 78; RESP 18; O2SAT 98
--- NOTE | 2021-12-25 09:51 | P.PCN_ITS ---
Procedure Date: 12/25/21 Time: 09:45 Anesthesiologist:: Dioni Sifuentes CRNA Complications:: None Pre-procedure Diagnosis:: Degenerative disc disease of cervical and lumbar spine with cervical and lumbar radiculopathy symptoms, myofascial pain bilateral cervical paraspinous and trapezius muscles Post-procedure Diagnosis:: Same Indications for Procedure:: Patient is a pleasant 81-year-old male that presents today for trigger point injections of his bilateral cervical paraspinous and trapezius muscles. We are currently treating the patient for degenerative disc disease of cervical and lumbar spine multilevels with cervical and lumbar radiculopathy symptoms, myofascial pain. Today the patient rates his pain a 3 out of 10 and states is primarily in his neck and shoulder more so on the left side. He describes this as a aching, throbbing sensation that is worse with increased activity. He is currently managed with gabapentin 300 mg 3 times a day by Dr. Condon. Patient is a diabetic with his last A1c 7.2. Procedure Details:: Informed consent was obtained and the risk and benefits of the procedure were explained to the patient. The patient was taken to the procedure room. His neck and upper trapezius area bilaterally were prepped using ChloraPrep. Trigger points were palpated and marked. Each of these trigger points were injected with bupivacaine 0.25% 2 mL and Depo-Medrol. A total of 80 mg Depo- Medrol was used for bilateral trigger points of upper trapezius muscles and cervical paraspinous muscles. Patient tolerated the procedure well with no complications. Plan and Disposition:: Patient was observed in the pain clinic for a period of time and then was discharged home neurologically intact. Patient has been instructed to contact the clinic with any questions or concerns before the next appointment. Dr. Webb has reviewed this note and agrees with this plan of care. This note was dictated using voice recognition software and may contain errors or omissions.
[2021-12-25 10:14] VITALS: BP 115/81; PULSE 78; RESP 18; O2SAT 92
== END 2021-12-25 09:41 | disposition home or self-care (01) ==
PROVIDERS: PCP Family Medicine; Visit Provider Nurse Anesthetist, Certified Registered
DX: M51.16 Intervertebral disc disorders with radiculopathy, lumbar region (principal); M50.10 Cervical disc disorder with radiculopathy, unspecified cervical region; M79.12 Myalgia of auxiliary muscles, head and neck
CPT/HCPCS: 20552; J1040

== ENCOUNTER → 2022-01-14 08:51 | Outpatient (POV) | payer MEDICARE, BC, SELFPAY ==
[2022-01-14 09:02] VITALS: BP 148/53; PULSE 64; RESP 18; TEMP 36.6; O2SAT 94; BMI 29.7
--- NOTE | 2022-01-14 09:16 | EXP.PAIN.SOA ---
[facility] Pain Management SOAP Note Subjective:: Patient is a pleasant 81-year-old male who presents today for follow-up of trigger point injections of bilateral cervical paraspinous and trapezius muscles on 12/25/2021. We are currently treating the patient for degenerative disc disease of cervical and lumbar spine with cervical and lumbar radiculopathy symptoms, myofascial pain bilateral cervical paraspinous and trapezius muscles. Patient states he has had significant improvement following this injection and feels like he is still getting additional relief. Patient rates that he has had at least 70% improvement. Patient states he does occasionally still have some arm pain on the left side with a little numbness however it has been significantly reduced. Patient is currently prescribed gabapentin [address] Condon's office. Patient denies any side effects from this medication. He states this medication does help his neuropathy symptoms. Patient is a diabetic with his last A1c a 7.2. His Néstor is [id number]. It has been reviewed and appropriate. Review of Systems: General: No recent weight changes, no fever, no sleep disturbances Respiratory: No cough, no shortness of air, no recurring pulmonary infections Cardiovascular/peripheral vascular: No chest pain, no palpitations, no edema, no shortness of breath Gastrointestinal: No new onset incontinence, normal bowel movements reported Genitourinary: No new onset incontinence Musculoskeletal: Neck pain, left arm pain Psychiatric: [Normal mood/affect] Neurological: [Denies weakness in extremities], [denies balance issues] Objective:: Physical Exam: General: Alert and oriented x3, no acute distress, pleasant and cooperative Lungs: Respirations even and unlabored, symmetrical chest expansion Eyes: PERRL Musculoskeletal: Flexion and extension of cervical [spine] somewhat guarded secondary to pain, [antalgic gait noted] Neurological: Speech clear, no gross sensory deficit Assessment:: Degenerative disc disease of cervical and lumbar spine with cervical and lumbar radiculopathy symptoms, myofascial pain bilateral cervical paraspinous and trapezius muscles Plan:: Patient has had significant improvement of his pain in his neck and radicular symptoms following his trigger point injections. At this time the patient does not need additional injective therapy. We will follow-up with the patient in 1 month. Patient will return to clinic in 1 month for reevaluation of symptoms and follow-up. Patient has been instructed to contact the clinic with any concerns before the next appointment. Dr. Webb has reviewed this note and agrees with this plan of care. This note was dictated using voice recognition software and make contain errors or omissions. [facility] Medical History (Updated 12/25/21 @ : by Clarisa Adame, NAHOMI) Atrial fibrillation Cardiac defibrillator in place Diabetes mellitus, type 2 Pulmonary fibrosis Surgical History (Updated 12/25/21 @ : by Clarisa Adame RN) History of knee replacement History of right hip replacement Hx of discectomy Family History (Updated 12/25/21 @ 09: by Clarisa Adame, NAHOMI) Other No significant family history Social History (Reviewed 12/25/21 @ : by Clarisa Adame RN) Smoking Status: Never smoker alcohol intake: never substance use type: denies use current occupational status: retired Travel in the last 8 weeks: None household members: spouse housing: house current occupation: [employer] current occupational exposures/hazards: No caffeine: Yes
== END ==
PROVIDERS: PCP Family Medicine; Visit Provider Student in an Organized Health Care Education/Training Program
DX: M51.16 Intervertebral disc disorders with radiculopathy, lumbar region (principal); M50.10 Cervical disc disorder with radiculopathy, unspecified cervical region; M79.18 Myalgia, other site; Z79.899 Other long term (current) drug therapy
CPT/HCPCS: 99212; G0463

== ENCOUNTER 2022-01-23 15:47 | Emergency (ER) | payer MEDICARE, BC, SELFPAY ==
[2022-01-23 15:48] VITALS: BP 145/67; PULSE 60; RESP 20; TEMP 36.7; O2SAT 96; BMI 31.1
--- NOTE | 2022-01-23 16:02 | ECG_ITS ---
APPROVED REPORT Exam: Resting ECG HR:60 bpm ECG Measurements Heart Rate 60 AXES OR 241 P 245 QRSd 133 QRS -43 QT 429 T 12 QTc 429 Conclusion ELECTRONIC ATRIAL PACEMAKER LEFT AXIS DEVIATION [QRS AXIS < -30] INTRAVENTRICULAR CONDUCTION DELAY [130+ ms QRS DURATION] LEFT VENTRICULAR HYPERTROPHY AND ST-T CHANGE [VOLTAGE CRITERIA PLUS ST/T ABNORMALITY] ABNORMAL ECG UNCONFIRMED REPORT Electronically signed by : Jon Perez MD 01/24/2022 21:07:50
--- NOTE | 2022-01-23 16:04 | XR_ITS ---
FINAL REPORT CLINICAL HISTORY: cough COMPARISON: 12/20/2018 FINDINGS: SINGLE-VIEW CHEST There is cardiomegaly. New left subclavian ICD is present. There is mild pulmonary vascular congestion. The mediastinum is normal. There are worsening pulmonary opacities, some likely represent scar but there is likely superimposed edema or pneumonia. There is no pneumothorax. IMPRESSION: Worsening pulmonary opacities as above. Follow-up radiographs or CT may be helpful. Reviewed, Interpreted and Dictated by Martin Maldonado III, MD Transcribed by Renetta Harper Authenticated and [facility]
--- NOTE | 2022-01-23 16:11 | PC.NURSE ---
PT TO XR AT THIS TIME
--- NOTE | 2022-01-23 16:25 | HMH.EDGENADL ---
Discharge Plan Disposition Patient Disposition: Home, Self-Care Condition: Good Prescriptions Prescriptions: No Action clopidogrel [Plavix] 75 mg tablet 75 mg PO DAILY multivitamin 1 EACH tablet 1 each PO DAILY metformin 1,000 MG tablet 1,000 mg PO BID Label Comments: TAKE 1 TABLET BY MOUTH TWICE DAILY losartan 100 MG tablet 100 mg PO DAILY Label Comments: TAKE 1 TABLET BY MOUTH EVERY DAY cholecalciferol (vitamin D3) 5,000 UNIT capsule 5,000 unit PO DAILY insulin glargine 100 UNIT/ML solution 25 unit SQ BID insulin lispro 100 UNIT/ML cartridge 10 unit SQ AC pantoprazole 40 MG tablet,delayed release (DR/EC) 40 mg PO DAILY gabapentin 300 MG capsule 300 mg PO BID metoprolol tartrate 25 MG tablet 25 mg PO BID apixaban 5 MG tablet 5 mg PO BID cyanocobalamin (vitamin B-12) 500 MCG tablet 500 mcg PO DAILY polyethylene glycol 3350 17 GM powder in packet 17 gm PO DAILYP PRN (Reason: Constipation) fluticasone propion-salmeterol 28 PUFFS blister with device 1 inh IH BID carvedilol 25 MG tablet 25 mg PO BID potassium chloride 10 MEQ capsule, extended release 10 meq PO BID dofetilide 250 MCG capsule 250 mcg PO BID amlodipine 10 MG tablet 10 mg PO DAILY furosemide 20 MG tablet 20 mg PO DAILY albuterol sulfate 8.5 GM HFA aerosol inhaler 8.5 gm IH NEEDED PRN (Reason: copd) naproxen 500 MG tablet 500 mg PO BID ascorbic acid (vitamin C) 500 MG capsule 500 mg PO DAILY Referrals Follow up/Referrals: Panda Condon MD [Primary Care Provider] - See instructions Activity Restrictions/Add. Instructions Additional Instructions/Restrictions: You have been evaluated for sinus congestion, likely due to COVID-19. Please monitor your symptoms closely. Measure your pulse oximeter level. Return to the emergency department at once for any new or worsening symptoms, shortness of breath, oxygen saturation less than 92%. Follow-up with your primary care doctor for symptom recheck. Clinical Impressions Clinical Impression: COVID-19 Instructions Patient Instructions: DI for COVID-19 (Suspected or Confirmed ) Discharge ED Provider: Marianne Cordon Adult HPI General Chief complaint: Upper Respiratory Infection Stated complaint: soa, lung issues Time Seen by Provider: 01/23/22 15:56 Mode of Arrival: Ambulatory Limitations: No Limitations Description of Symptoms (Recalled from ER Triage Doc. by RN): PT REPORTS + AT HOME COVID TEST THIS AM, STATES HE FEELS LIKE I HAVE A COLD HX OF COPD, PULMONARY FIBROSIS AND EMPHYSEMA History of Present Illness HPI narrative: 81-year-old male presenting to the emergency department with sinus congestion cough, COVID-positive. Symptoms started 2 to 3 days ago. He and his were at a wedding over the weekend. Both had cold-like symptoms on Friday. Runny nose and congestion. He took a home COVID test this morning and it was positive. Called his primary care doctor who recommended he come to the emergency department for evaluation. He has a history of COPD as well as pulmonary fibrosis. Says he does not feel more short of breath than normal. No chest pain. No cough. No fevers, chills, nausea, vomiting. He did receive the COVID vaccines. Taking all other prescribed medications as he is supposed to Related Data Home Medications Medication Instructions Recorded Confirmed apixaban 5 mg tablet 5 mg PO BID Blood thinner 08/01/17 01/14/22 cyanocobalamin (vitamin B-12) 500 500 mcg PO DAILY Supplement 08/01/17 01/14/22 mcg tablet gabapentin 300 mg capsule 300 mg PO BID Pain 08/01/17 01/14/22 insulin glargine 100 unit/mL 25 unit SQ BID Diabetes 08/01/17 01/14/22 subcutaneous solution insulin lispro 100 unit/mL 10 unit SQ AC Diabetes 08/01/17 01/14/22 subcutaneous cartridge metoprolol tartrate 25 mg tablet 25 mg PO BID Heart
--- NOTE | 2022-01-23 17:09 | PC.NURSE ---
pt was walked down hallway to check O2 sat, pt was able to walk and O2 sat was 93% on reevaluation in room.
--- NOTE | 2022-01-23 17:10 | PC.NURSE ---
ROUNDED ON PT AT THIS TIME, NO NEEDS VOICED. CALL LIGHT WITHIN REACH
[2022-01-23 17:45] VITALS: BP 131/68; PULSE 60; RESP 18; TEMP 36.7; O2SAT 96
== END 2022-01-23 17:45 | disposition home or self-care (01) ==
PROVIDERS: Emergency Provider Emergency Medicine; PCP Family Medicine
DX: U07.1 COVID-19 (principal); Z79.01 Long term (current) use of anticoagulants; Z79.84 Long term (current) use of oral hypoglycemic drugs; Z79.4 Long term (current) use of insulin; Z79.899 Other long term (current) drug therapy; E11.9 Type 2 diabetes mellitus without complications; K21.9 Gastro-esophageal reflux disease without esophagitis; I10 Essential (primary) hypertension; J44.9 Chronic obstructive pulmonary disease, unspecified; I48.91 Unspecified atrial fibrillation; E78.5 Hyperlipidemia, unspecified; Z95.810 Presence of automatic (implantable) cardiac defibrillator
CPT/HCPCS: 71045; 93005; 99283

== ENCOUNTER → 2022-02-14 09:37 | Outpatient (POV) | payer MEDICARE, BC, SELFPAY ==
--- NOTE | 2022-02-14 09:59 | A.OFFVIS_ITS ---
[facility] Pain Management SOAP Note Subjective:: Patient is a pleasant 81-year-old male who presents today for follow-up. We are currently treating the patient for degenerative disc disease of cervical and lumbar spine with cervical and lumbar radiculopathy symptoms, myofascial pain of bilateral cervical paraspinous and trapezius muscles. Today patient rates his pain a 2 out of 10. Patient denies any new trauma or injury. Patient denies any change in location or type of pain he experiences. Patient states he has a little soreness that remains in his neck with increased activity and states most of his pain is due to his neuropathy in his feet. Patient has had trigger point injections in the past that provided significant improvement his last injection was 12/25/2021. Patient is currently managed with gabapentin 300 mg [address] Condon's office. Patient denies any side effects from this medication. He states this medication does help his neuropathy symptoms. Patient is a diabetic with his last A1c of 7.2. Patient's Néstor is [id number]. It has been reviewed and appropriate. Review of Systems: General: No recent weight changes, no fever, no sleep disturbances Respiratory: No cough, no shortness of air, no recurring pulmonary infections Cardiovascular/peripheral vascular: No chest pain, no palpitations, no edema, no shortness of breath Gastrointestinal: No new onset incontinence, normal bowel movements reported Genitourinary: No new onset incontinence Musculoskeletal: Neck pain, feet pain Psychiatric: [Normal mood/affect] Neurological: [Denies weakness in extremities], [denies balance issues] Objective:: Physical Exam: General: Alert and oriented x3, no acute distress, pleasant and cooperative Lungs: Respirations even and unlabored, symmetrical chest expansion Eyes: PERRL Musculoskeletal: Flexion and extension of cervical [spine] somewhat guarded secondary to pain, [antalgic gait noted] Neurological: Speech clear, no gross sensory deficit Assessment:: Degenerative disc disease of cervical and lumbar spine with cervical and lumbar radiculopathy symptoms, myofascial pain of bilateral cervical paraspinous and trapezius muscles Plan:: Patient continues to get significant relief from his last trigger point injections. At this time he does not require any additional injective therapy. I will order the patient a compounding cream at today's visit. We will follow- up with the patient in 3 months. Patient will return to clinic in 3 months for reevaluation of symptoms and follow-up. Patient has been instructed to contact the clinic with any concerns before the next appointment. Dr. Webb has reviewed this note and agrees with this plan of care. This note was dictated using voice recognition software and make contain errors or omissions. [facility] Medical History (Updated 01/23/22 @ 16:33 by Marianne Cordon DO) Atrial fibrillation Cardiac defibrillator in place Diabetes mellitus, type 2 Pulmonary fibrosis Surgical History (Updated 12/25/21 @ 09:26 by Clarisa Adame RN) History of knee replacement History of right hip replacement Hx of discectomy Family History (Updated 12/25/21 @ 09:26 by Clarisa Adame RN) Other No significant family history Social History Smoking Status: Never smoker alcohol intake: never substance use type: denies use current occupational status: retired Travel in the last 8 weeks: None household members: spouse housing: house current occupation: [employer] current occupational exposures/hazards: No caffeine: Yes
[2022-02-14 10:35] VITALS: BP 155/58; PULSE 72; RESP 18; O2SAT 93; BMI 30.5
== END ==
PROVIDERS: PCP Family Medicine; Visit Provider Nurse Practitioner Family
DX: M51.16 Intervertebral disc disorders with radiculopathy, lumbar region (principal); M50.10 Cervical disc disorder with radiculopathy, unspecified cervical region; M79.18 Myalgia, other site
CPT/HCPCS: 99212; G0463

== ENCOUNTER → 2022-05-13 13:04 | Outpatient (POV) | payer MEDICARE, BC, SELFPAY ==
--- NOTE | 2022-05-13 13:23 | EXP.PAIN.SOA ---
[facility] Pain Management SOAP Note Subjective:: Patient is a pleasant 81-year-old male who presents today for follow-up. We are currently treating the patient for degenerative disc disease of cervical and lumbar spine with cervical and lumbar radiculopathy symptoms, myofascial pain of bilateral cervical paraspinous and trapezius muscles. Today the patient rates his pain a 3 out of 10. Patient denies any new trauma or injury. Patient denies any change to location or type of pain he experiences. Patient previously had trigger point injections back in November that is still done well for him. Patient does state that he is starting to notice a little bit more pain in his neck and shoulders however it is still tolerable and he does not need injections at this time. Patient was prescribed compounding cream however he states he has not had to use this due to the decreased pain symptoms. Patient is currently managed with gabapentin 300 mg 3 times a day from his primary care doctor. Patient denies any side effects from this medication. His Néstor is [id number]. Its been reviewed and appropriate. Review of Systems: General: No recent weight changes, no fever, no sleep disturbances Respiratory: No cough, no shortness of air, no recurring pulmonary infections Cardiovascular/peripheral vascular: No chest pain, no palpitations, no edema, no shortness of breath Gastrointestinal: No new onset incontinence, normal bowel movements reported Genitourinary: No new onset incontinence Musculoskeletal: Neck pain, shoulder pain Psychiatric: [Normal mood/affect] Neurological: [Denies weakness in extremities], [denies balance issues] Objective:: Physical Exam: General: Alert and oriented x3, no acute distress, pleasant and cooperative Lungs: Respirations even and unlabored, symmetrical chest expansion Eyes: PERRL Musculoskeletal: Flexion and extension of cervical [spine] somewhat guarded secondary to pain, [antalgic gait noted] Neurological: Speech clear, no gross sensory deficit ORT score updated with low risk Assessment:: Degenerative disc disease of cervical and lumbar spine with cervical and lumbar radiculopathy symptoms, myofascial pain of bilateral cervical paraspinous and trapezius muscles Plan:: Patient continues to experience significant pain improvement following his trigger point injections back from November and does not require any additional injective therapy at this time. Patient will return to clinic in 3 months for reevaluation of symptoms and follow-up. Patient has been instructed to contact the clinic with any concerns before the next appointment. Dr. Webb has reviewed this note and agrees with this plan of care. This note was dictated using voice recognition software and make contain errors or omissions. [facility] Disclaimer: The information contained in this section may have been updated after the patient was seen, as this information can be updated by other users. Medical History (Updated 01/23/22 @ 16:33 by Marianne Cordon DO) Atrial fibrillation Cardiac defibrillator in place Diabetes mellitus, type 2 Pulmonary fibrosis Surgical History (Updated 12/25/21 @ 09:26 by Clarisa Adame RN) History of knee replacement History of right hip replacement Hx of discectomy Family History (Updated 12/25/21 @ 09:26 by Clarisa Adame RN) Other No significant family history Social History Smoking Status: Never smoker alcohol intake: never substance use type: denies use current occupational status: retired Travel in the last 8 weeks: None household members: spouse housing: house current occupation: [employer] current occupational exposures/hazards: No caffeine: Yes
[2022-05-13 13:33] VITALS: BP 101/60; PULSE 70; RESP 18; O2SAT 99; BMI 27.3
== END ==
PROVIDERS: PCP Family Medicine; Visit Provider Nurse Practitioner Family
DX: M50.10 Cervical disc disorder with radiculopathy, unspecified cervical region (principal); M51.16 Intervertebral disc disorders with radiculopathy, lumbar region; M79.18 Myalgia, other site
CPT/HCPCS: 99212; G0463

== ENCOUNTER → 2022-05-31 10:49 | Outpatient (CLI) | payer MEDICARE, BC, SELFPAY ==
--- NOTE | 2022-05-31 10:54 | CT_ITS ---
FINAL REPORT TECHNIQUE: Thin section axial images were obtained through the paranasal sinuses without contrast. CLINICAL HISTORY: Chronic maxillary sinusitis, c/o congestion and loss of taste since dx w COVID in January 2022. COMPARISON: CT head 12/20/2018 FINDINGS: There is complete opacification the right sphenoid sinus with calcifications, unchanged from prior study. Remaining paranasal sinuses are clear. There is a maximiliano bullosa in the left middle turbinate. The bilateral maxillary infundibulum are patent. There is minimal right septal deviation. The mastoids are clear. Remaining soft tissues are without acute abnormality. IMPRESSION: Chronic right sphenoid sinusitis. Reviewed, Interpreted and Dictated by Myra Nguyen MD Transcribed by Lena Deras Authenticated and [facility]
== END ==
PROVIDERS: PCP Family Medicine; Visit Provider Family Medicine
DX: J32.0 Chronic maxillary sinusitis (principal)
CPT/HCPCS: 70486

== ENCOUNTER → 2022-06-17 15:19 | Outpatient (POV) | payer MEDICARE, BC, SELFPAY ==
[2022-06-17 15:59] VITALS: BP 126/53; PULSE 74; RESP 18; O2SAT 98; BMI 29.8
--- NOTE | 2022-06-17 16:05 | EXP.PAIN.SOA ---
[facility] Pain Management SOAP Note Subjective:: Patient is a pleasant 82-year-old male who presents today for follow-up. We are currently treating the patient for degenerative disc disease of cervical and lumbar spine with cervical and lumbar radiculopathy symptoms, myofascial pain of bilateral cervical paraspinous and trapezius muscles. Patient rates his pain today a 0 out of 10. He does state that he continues to have neck pain with radiating symptoms into his upper extremities that is worse at night. Patient does describe this as a numbness, tingling sensation that is worse with increased activity. He does state that the left side is the more predominant side however he does have on both arms. Patient has had multiple injections including cervical epidurals and trigger point injections that provided significant improvement of his upper back pain with radiating symptoms. At our last visit he was prescribed compounding cream however he states he did not notice significant relief. Patient is currently managed with gabapentin 300 mg 3 times a day from his primary care doctor. Patient denies any side effects from this medication. He does have a significant heart history and is currently on Plavix and Eliquis. His Néstor is [id number]. Review of Systems: General: No recent weight changes, no fever, no sleep disturbances Respiratory: No cough, no shortness of air, no recurring pulmonary infections Cardiovascular/peripheral vascular: No chest pain, no palpitations, no edema, no shortness of breath Gastrointestinal: No new onset incontinence, normal bowel movements reported Genitourinary: No new onset incontinence Musculoskeletal: Upper back/neck pain, bilateral upper extremity pain Psychiatric: [Normal mood/affect] Neurological: [Denies weakness in extremities], [denies balance issues] Objective:: Physical Exam: General: Alert and oriented x3, no acute distress, pleasant and cooperative Lungs: Respirations even and unlabored, symmetrical chest expansion Eyes: PERRL Musculoskeletal: Flexion and extension of cervical [spine] somewhat guarded secondary to pain, [antalgic gait noted] Neurological: Speech clear, no gross sensory deficit Assessment:: Degenerative disc disease of cervical and lumbar spine with cervical and lumbar radiculopathy symptoms, myofascial pain of bilateral cervical paraspinous and trapezius muscles Plan:: Patient is experiencing significant pain in his upper back/neck that is more prominent at night with radiating symptoms into his upper extremities. Patient did have limited range of motion of his cervical spine during today's visit. I have discussed with the patient that he may benefit from cervical epidural steroid injection. Risk and benefits were discussed with the patient and he would like to proceed forward with this plan of care. Patient is currently on Eliquis and Plavix. 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 I will also order the patient methocarbamol 500 mg at bedtime as needed and provide a 2-week supply of this medication. Patient will be scheduled for a ARMANDO C6-C7. Patient has been instructed to contact the clinic with any concerns before the next appointment. Dr. Webb has reviewed this note and agrees with this plan of care. This note was dictated using voice recognition software and make contain errors or omissions. [facility] Disclaimer: The information contained in this section may have been updated after the patient was seen, as this information can be updated by other users. Medical History (Updated 01/23/22 @ 16:33 by Marianne Cordon DO) Atrial fibrillation Cardiac defibrillator in place Diabetes mellitus, type 2 Pulmonary fibrosis Surgical History (Updated 12/25/21 @ 09:26 by Clarisa Adame RN) History of knee replacement History of right hip replacement Hx of discectomy Family History (Updated 12/25/21 @ 09:26 by Clarisa Bishop
== END | disposition home or self-care (01) ==
PROVIDERS: PCP Family Medicine; Visit Provider Nurse Practitioner Family
DX: M50.123 Cervical disc disorder at C6-C7 level with radiculopathy (principal); M79.18 Myalgia, other site
CPT/HCPCS: 99212; G0463

== ENCOUNTER 2022-07-09 08:23 | Day surgery (SDC) | payer MEDICARE, BC, SELFPAY ==
[2022-07-09 08:51] VITALS: BP 158/76; PULSE 76; RESP 18; TEMP 36.6; O2SAT 90; BMI 30.1
[2022-07-09 09:01] VITALS: BP 164/87; PULSE 76; RESP 20; O2SAT 96
[2022-07-09 09:08] VITALS: BP 169/64; PULSE 68; RESP 18; O2SAT 90
--- NOTE | 2022-07-09 09:08 | P.PCN_ITS ---
Procedure Date: 07/09/22 Time: 09:00 Anesthesiologist:: Dioni Sifuentes CRNA Complications:: None Pre-procedure Diagnosis:: Degenerative disc disease cervical spine multilevels. Cervical radiculopathy Post-procedure Diagnosis:: Same. Indications for Procedure:: Patient is a very pleasant 82-year-old male that comes our clinic today for cervical epidural steroid injection C6-7. Patient has cervical neck pain that he describes as constant, dull, aching. Also complains of bilateral arm ra diculopathy. Procedure Details:: Procedure:Cervical epidural steroid injection Informed consent was obtained and the risks and benefits of the procedure were explained to the patient. The patient was taken to the procedure room and noninvasive monitors placed, including noninvasive blood pressure cuff and pulse oximeter. The neck was prepped using Chloraprep as a cleansing solution. The C6- C7 interspace was viewed using fluroscopy. The skin and subcutaneous tissues were anesthetized using lidocaine 1.5% and a 25-gauge needle. After this an 18-g auge Touhy epidural needle was placed into the C6-C7 interspace under fluroscopy guidance and advanced using loss of resistance to air until the epidural space was encountered. After confirmation of needle placement in the epidural space using contrast dye, a solution containing normal saline, 2 mL and Depo-Medrol 80 mg was incrementally injected into the cervical epidural space.~ The patient tolerated the procedure well with no complications. The patient was observed in the Pain Clinic and then discharged home neurologically intact. Plan and Disposition:: Patient was discharged without incident.
== END 2022-07-09 09:08 | disposition home or self-care (01) ==
PROVIDERS: PCP Family Medicine; Visit Provider Nurse Anesthetist, Certified Registered
DX: M50.123 Cervical disc disorder at C6-C7 level with radiculopathy (principal)
CPT/HCPCS: 62321; J1040; Q9966

== ENCOUNTER → 2022-07-24 09:21 | Outpatient (POV) | payer MEDICARE, BC, SELFPAY ==
[2022-07-24 09:54] VITALS: BP 169/71; PULSE 65; RESP 18; O2SAT 98; BMI 29.8
--- NOTE | 2022-07-24 10:02 | EXP.PAIN.SOA ---
[facility] Pain Management SOAP Note Subjective:: Patient is a pleasant 82-year-old male who presents today for follow-up cervical epidural steroid injection of C6-C7 on 07/09/2022. We are currently treating the patient for degenerative disc disease of cervical and lumbar spine with cervical and lumbar radiculopathy symptoms, myofascial pain of bilateral cervical paraspinous and trapezius muscles. Today he states he has had at least 70 to 80% improvement following this injection and feels like it is still continuing to provide additional relief. He does rate his pain a 2 out of 10 today. Patient did a new trauma or injury. He denies any change to location or type of pain he is experiencing. He is currently managed with gabapentin 300 mg 3 times a day from his primary care doctor. He denies any side effects from this medication. Patient does have a cardiac history and is on Plavix and Eliquis. His Néstor is [id number]. Its been reviewed and appropriate. Review of Systems: General: No recent weight changes, no fever, no sleep disturbances Respiratory: No cough, no shortness of air, no recurring pulmonary infections Cardiovascular/peripheral vascular: No chest pain, no palpitations, no edema, no shortness of breath Gastrointestinal: No new onset incontinence, normal bowel movements reported Genitourinary: No new onset incontinence Musculoskeletal: Neck pain Psychiatric: [Normal mood/affect] Neurological: [Denies weakness in extremities], [denies balance issues] Objective:: Physical Exam: General: Alert and oriented x3, no acute distress, pleasant and cooperative Lungs: Respirations even and unlabored, symmetrical chest expansion Eyes: PERRL Musculoskeletal: Flexion and extension of cervical [spine] somewhat guarded secondary to pain, [antalgic gait noted] Neurological: Speech clear, no gross sensory deficit Assessment:: Degenerative disc disease of cervical and lumbar spine with cervical and lumbar radiculopathy symptoms, myofascial pain of bilateral cervical paraspinous and trapezius muscles Plan:: Patient is doing well following his cervical epidural and does not require any additional injective therapy at this time. Patient will return to clinic in 3 months for reevaluation of symptoms and plan of care. Patient has been instructed to contact the clinic with any concerns before the next appointment. Dr. Webb has reviewed this note and agrees with this plan of care. This note was dictated using voice recognition software and make contain errors or omissions. [facility] Disclaimer: The information contained in this section may have been updated after the patient was seen, as this information can be updated by other users. Medical History Atrial fibrillation Cardiac defibrillator in place Diabetes mellitus, type 2 Pulmonary fibrosis Surgical History History of knee replacement History of right hip replacement Hx of discectomy Family History Other No significant family history Social History Smoking Status: Never smoker alcohol intake: never substance use type: denies use current occupational status: retired Travel in the last 8 weeks: None household members: spouse housing: house current occupation: [employer] current occupational exposures/hazards: No caffeine: Yes
== END ==
PROVIDERS: PCP Family Medicine; Visit Provider Nurse Practitioner Family
DX: M50.123 Cervical disc disorder at C6-C7 level with radiculopathy (principal); M51.16 Intervertebral disc disorders with radiculopathy, lumbar region; M79.18 Myalgia, other site
CPT/HCPCS: 99212; G0463

== ENCOUNTER 2023-04-09 10:20 | Emergency (ER) | payer MEDICARE, BC, SELFPAY ==
[2023-04-09] VITALS (7 sets, daily range): BP systolic 00–128; BP diastolic 00–68; PULSE 0–126; RESP 0–47; TEMP -17.7–37.4; O2SAT 0–90; BMI 27.3; BMI 29.1
[2023-04-09] MEDS: IPRATROPIUM/ALBUTEROL 3 ML NEB 6 ML IH (10:15)
--- NOTE | 2023-04-09 10:17 | ECG_ITS ---
APPROVED REPORT Exam: Resting ECG HR:115 bpm ECG Measurements Heart Rate 115 AXES QRSd 174 QRS -60 QT 302 T 15 QTc 370 Conclusion ATRIAL FIBRILLATION WITH RAPID VENTRICULAR RESPONSE RIGHT BUNDLE BRANCH BLOCK [120+ ms QRS DURATION, UPRIGHT V1, 40+ ms S IN I/aVL/V4/V5/V6] LEFT ANTERIOR FASCICULAR BLOCK [QRS AXIS <= -45, QR IN I, RS IN II] ABNORMAL ECG UNCONFIRMED REPORT Electronically signed by : Jon Perez MD 04/10/2023 20:13:14
--- NOTE | 2023-04-09 10:21 | PC.NURSE ---
called respiratory to bedside to put pt on bipap.
--- NOTE | 2023-04-09 10:31 | XR_ITS ---
FINAL REPORT CLINICAL HISTORY: soa, cp COMPARISON: 01/23/2022 FINDINGS: SINGLE-VIEW CHEST There is cardiomegaly. Left subclavian ICD is present. The mediastinum is normal. There are worsening pulmonary opacities consistent with worsening pneumonia or edema. There is no pneumothorax. IMPRESSION: Worsening pneumonia or edema. Reviewed, Interpreted and Dictated by Martin Maldonado III, MD Transcribed by Renetta Harper Authenticated and . [facility]
--- NOTE | 2023-04-09 10:35 | PC.NURSE ---
spoke with about possibly needing to intubate the patient soon if not improved with Bipap. pt asked to wait and keep him on bipap until she can talk to daughters about intubation
[2023-04-09 11:01] LABS: Basophils # 0.1 K/mm3 (0-0.2); Basophils % 0.5 % (0.1-2.0); Eosinophils % 0.3 % (0.1-12.0); Hematocrit 37.1 % (42.0-52.0); Hemoglobin 11.8 g/dL (14.1-18.0); Lymphocytes # 1.5 K/mm3 (0.7-4.5); Lymphocytes % 9.9 % (10-50); Mean Corpuscular HGB Conc 31.7 g/dL (31.8-35.4); Mean Corpuscular Hemoglobin 31.5 pg (27.0-31.2); Mean Corpuscular Volume 99.4 fl (80-94); Mean Platelet Volume 9.2 fl (7.4-10.4); Monocytes # 0.4 K/mm3 (0.1-1.0); Monocytes % 2.8 % (1.7-9.3); Neutrophils # 13.3 K/mm3 (1.8-7.8); Neutrophils % 86.5 % (37.0-80.0); Platelet Count 359 K/mm3 (142-424); Red Blood Count 3.73 M/mm3 (4.60-6.20); Red Cell Distribution Width 15.7 % (11.5-17.5); White Blood Count 15.3 K/mm3 (4.8-10.8)
[2023-04-09 11:02] LABS: Microscopic, Urine URINE MICROSCOPIC (MICROSCOPIC)
--- NOTE | 2023-04-09 11:04 | ECG_ITS ---
APPROVED REPORT Exam: Resting ECG HR:131 bpm ECG Measurements Heart Rate 131 AXES QRSd 176 QRS -78 QT 347 T 22 QTc 424 Conclusion ATRIAL FIBRILLATION WITH RAPID VENTRICULAR RESPONSE WITH ABERRANT CONDUCTION OR VENTRICULAR PREMATURE COMPLEXES RIGHT BUNDLE BRANCH BLOCK [120+ ms QRS DURATION, UPRIGHT V1, 40+ ms S IN I/aVL/V4/V5/V6] LEFT ANTERIOR FASCICULAR BLOCK [QRS AXIS <= -45, QR IN I, RS IN II] POSSIBLE ANTERIOR MYOCARDIAL INFARCTION , OF INDETERMINATE AGE [30 ms Q WAVE IN V3/V4, OR R < 0.2 mV IN V4] ABNORMAL ECG UNCONFIRMED REPORT Electronically signed by : Jon Perez MD 04/10/2023 20:12:34
--- NOTE | 2023-04-09 11:04 | ED_ITS ---
Discharge Plan Disposition Patient Disposition: Chief Complaint: Shortness of Breath/Dyspnea Prescriptions Prescriptions: No Action multivitamin 1 EACH tablet 1 each PO DAILY metformin 1,000 MG tablet 1,000 mg PO BID Patient Comments: TAKE 1 TABLET BY MOUTH TWICE DAILY losartan 100 MG tablet 100 mg PO DAILY Patient Comments: TAKE 1 TABLET BY MOUTH EVERY DAY cholecalciferol (vitamin D3) 5,000 UNIT capsule 5,000 unit PO DAILY insulin lispro 100 UNIT/ML cartridge 10 unit SQ AC pantoprazole 40 MG tablet,delayed release (DR/EC) 40 mg PO DAILY gabapentin 300 MG capsule 300 mg PO BID metoprolol tartrate 25 MG tablet 25 mg PO BID apixaban 5 MG tablet 5 mg PO BID cyanocobalamin (vitamin B-12) 500 MCG tablet 500 mcg PO DAILY polyethylene glycol 3350 17 GM powder in packet 17 gm PO DAILYP PRN (Reason: Constipation) fluticasone propion-salmeterol 28 PUFFS blister with device 1 inh IH BID carvedilol 25 MG tablet 25 mg PO BID potassium chloride 10 MEQ capsule, extended release 10 meq PO BID dofetilide 250 MCG capsule 250 mcg PO BID amlodipine 10 MG tablet 10 mg PO DAILY furosemide 20 MG tablet 20 mg PO DAILY albuterol sulfate 8.5 GM HFA aerosol inhaler 8.5 gm IH NEEDED PRN (Reason: copd) naproxen 500 MG tablet 500 mg PO BID ascorbic acid (vitamin C) 500 MG capsule 500 mg PO DAILY methocarbamol 500 mg tablet 500 mg PO HS Referrals Follow up/Referrals: Panda Condon MD [Primary Care Provider] - See instructions Clinical Impressions Clinical Impression: Acute on chronic respiratory failure with hypoxemia, Cardiogenic shock, Cardiac arrest, Acute hypokalemia Discharge ED Provider: Mohsen Schmitz General Adult HPI General Chief complaint: Shortness of Breath/Dyspnea Stated complaint: Difficulty Breathing Time Seen by Provider: 04/09/23 10:30 History of Present Illness HPI narrative: 82-year-old male of AF, CAD, type II, A-fib on Eliquis, hypertension, hyperlipidemia and chronic respiratory failure presenting with difficulty breathing. Patient states that this started just before arrival. Associated with hemoptysis. EMS was called. Patient was hypoxemic and tachypneic on arrival and placed on oxygen. Brought to the emergency department. Patient too unstable and uncomfortable to answer questions on arrival. Appears very ill Related Data Home Medications Medication Instructions Recorded Confirmed apixaban 5 mg tablet 5 mg PO BID Blood thinner 08/01/17 07/24/22 cyanocobalamin (vitamin B-12) 500 500 mcg PO DAILY Supplement 08/01/17 07/24/22 mcg tablet gabapentin 300 mg capsule 300 mg PO BID Pain 08/01/17 07/24/22 insulin lispro 100 unit/mL 10 unit SQ AC Diabetes 08/01/17 07/24/22 subcutaneous cartridge metoprolol tartrate 25 mg tablet 25 mg PO BID Heart disease 08/01/17 07/24/22 pantoprazole 40 mg tablet,delayed 40 mg PO DAILY GERD 08/01/17 07/24/22 release polyethylene glycol 3350 17 gram 17 gm PO DAILYP PRN Constipation 08/01/17 07/24/22 oral powder packet cholecalciferol (vitamin D3) 125 5,000 unit PO DAILY Supplement 12/20/18 07/24/22 mcg (5,000 unit) capsule losartan 100 mg tablet 100 mg PO DAILY Hypertension 12/20/18 07/24/22 metformin 1,000 mg tablet 1,000 mg PO BID Diabetes 12/20/18 07/24/22 multivitamin 1 each PO DAILY Supplement 12/20/18 07/24/22 albuterol sulfate 90 mcg/actuation 8.5 gm IH NEEDED PRN copd 12/07/20 07/24/22 aerosol inhaler amlodipine 10 mg tablet 10 mg PO DAILY Heartburn 12/07/20 07/24/22 ascorbic acid (vitamin C) 500 mg 500 mg PO DAILY Supplement 12/07/20 07/24/22 capsule carvedilol 25 mg tablet 25 mg PO BID bid 12/07/20 07/24/22 dofetilide 250 mcg capsule 250 mcg PO BID arrythmia 12/07/20 07/24/22 fluticasone 250 mcg-salmeterol 50 1 inh IH BID COPD 12/07/20 07/24/22 mcg/dose blistr powdr for inhalation furosemide 20 mg tablet 20 mg PO DAILY Heartburn 12/07/20 07/24/22 naproxen 500 mg tablet 500 mg PO BID Pain 12/07/20 07/24/22 potassium chloride 10 mEq 10 meq PO BID Supplement 12/07/20 07/24/22 capsule,extended release methocarbamol 500 mg tablet 500 mg PO HS . 04/11/23 04/26/23 Allergies Allergy/AdvReac Type Severity Reaction Status Date / Time No Known Allergies Allergy Verified 07/09/22 08:51 [facility] Disclaimer: The information contained in this section may have been updated after the patient was seen, as this information can be updated by other users. Medical History (Updated 04/09/23 @ 12:14 by Mohsen Schmitz MD) Atrial fibrillation Cardiac defibrillator in place Diabetes mellitus, type 2 Pulmonary fibrosis Surgical History History of knee replacement History of right hip replacement Hx of discectomy Family History Other No significant family history Social History Smoking Status: Never smoker alcohol intake: never substance use type: denies use current occupational status: retired Travel in the last 8 weeks: None household members: spouse housing: house current occupation: [employer] current occupational exposures/hazards: No caffeine: Yes ROS Obtained: Yes unobtainable due to mental status Physical Exam General General appearance: in distress and other (Very ill-appearing, diaphoretic, pal e, respiratory distress) Head Head exam: atraumatic and normocephalic Eye Eye exam: Present normal appearance, PERRL and EOMI ENT ENT exam: Present mucous membranes dry (Blood in oropharynx) Neck Neck exam: Present trachea midline Chest Chest inspection: Present normal inspection and symmetric chest wall rise Respiratory Respiratory exam: Present respiratory distress, wheezes, accessory muscle use, prolonged expiratory phase and other (Diffuse Rales); Absent stridor Cardiovascular Cardiovascular exam: Present tachycardia and irregular rhythm Abdominal Exam Abdominal exam: Present soft; Absent distention, tenderness, guarding, rebound or rigidity Extremities Exam Extremities exam: Present edema Neurological Exam Neurological exam: Present CN II-XII intact and other (GCS 12) Skin Skin exam: Present warm and dry; Absent cyanosis, diaphoresis or pallor Medical Decision Making Medical Records Medical records reviewed: Yes I reviewed the patient's medical records. Néstor Inquiry Pt receiving controlled substance: No Néstor was queried for this patient: No Vital Signs: 04/09/23 10:20 04/09/23 10:36 04/09/23 10:59 Temperature 99.4 F Temperature Source Oral Pulse Rate 101 H 79 Pulse Rate [Left Radial] 76 Respiratory Rate 30 H 47 H 42 H Blood Pressure 83/60 L 119/68 Blood Pressure [Right Arm] 115/51 L Blood Pressure Mean 69 87 Blood Pressure Mean [Right Arm] 72 Blood Pressure Source [Right Arm] Automatic Cuff Blood Pressure Position [Right Arm] Sitting 02 Sat by Pulse Oximetry 89 L 88 L 82 L Oxygen Delivery Method Non-Rebreather Oxygen Flow Rate (LPM) 15 Lab Data Lab Results 04/09/23 10:30: WBC 15.3 H, RBC 3.73 L, Hgb 11.8 L, Hct 37.1 L, MCV 99.4 H, MCH 31.5 H, MCHC 31.7 L, RDW 15.7, Plt Count 359, MPV 9.2, Neut % (Auto) 86.5 H, Lymph % (Auto) 9.9 L, [place] % (Auto) 2.8, Eos % (Auto) 0.3, Baso % (Auto) 0.5, Neut # (Auto) 13.3 H, Lymph # (Auto) 1.5, [place] # (Auto) 0.4, Eos # (Auto) 0.0, Baso # (Auto) 0.1, Sodium 134 L, Potassium 5.3 H, Chloride 100, Carbon Dioxide 28, Anion Gap 11.3, BUN 40 H, Creatinine 1.40 H, Estimated Creat Clear 55, Estimated GFR 48 L, Est GFR ( Amer) 59, Glucose 280 H, Lactate 4.1 H, Calcium 9.1, Total Bilirubin 0.7, AST 41, ALT 42, Alkaline Phosphatase 112, Troponin I 0.01, NT-Pro-B Natriuret Pep 5130 H, Total Protein 7.2, Albumin 3.2 L , Globulin 4.0 H, Albumin/Globulin Ratio 0.8 L 04/09/23 10:55: Urine Color Yellow, Urine Appearance Clear, Urine pH 6.0, Ur Specific [place] 1.020, Urine Protein Trace, Urine Glucose (UA) Negative, Urine Ketones Negative, Urine Blood Negative, Urine Nitrate Negative, Urine Bilirubin Negative, Urine Urobilinogen 0.2, Ur Leukocyte Esterase Negative, Urine RBC None, Urine WBC None, Ur Squamous Epith Cells Occasional, Amorphous Sediment Trace, Urine Bacteria None 04/09/23 10:30 04/09/23 10:30 Orders (Tests/Meds): ED MEDICATIONS Generic Name Dose Route Start Last Admin Trade Name Freq PRN Reason Stop Dose Admin Fentanyl Citrate 12.5 mcg 04/09/23 11:22 04/09/23 11:31 Fentanyl 100mcg/2ml Vial IV 05/09/23 11:21 12.5 mcg [id number] PRN Administration Agitation Vancomycin HCl 2,000 mg/ 250 mls @ 125 mls/hr 04/09/23 11:00 Sodium Chloride IV 04/09/23 12:59 ONCE ONE Lorazepam 0.1 mg 04/09/23 11:22 Lorazepam 2mg/Ml Vial IV 05/09/23 11:21 [id number] PRN Agitation Sodium Chloride 10 ml 04/09/23 11:04 Sodium Chloride 0.9% 10ml Vial IV 05/09/23 11:03 NEEDED PRN to Dilute Lorazepam inj Sodium Chloride 10 ml 04/09/23 11:08 Sodium Chloride 0.9% 10ml Vial IV 05/09/23 11:07 NEEDED PRN to Dilute Lorazepam inj Discontinued Medications Generic Name Dose Route Start Last Admin Trade Name Freq PRN Reason Stop Dose Admin Furosemide 40 mg 04/09/23 10:31 04/09/23 11:06 Furosemide 40mg/4ml Vial IV 04/09/23 10:32 40 mg ONCE ONE Administration Glycopyrrolate 0.2 mg 04/09/23 11:22 Glycopyrrolate 0.2 Mg/Ml 1ml Vial IV 04/09/23 11:23 ONCE ONE Ampicillin Sodium/Sulbactam 100 mls @ 200 mls/hr 04/09/23 10:39 Sodium 3 gm/ Sodium Chloride IV 04/09/23 10:40 ONCE ONE Lorazepam 0.5 mg 04/09/23 11:04 Lorazepam 2mg/Ml Vial IV 04/09/23 11:05 ONCE ONE Lorazepam 0.5 mg 04/09/23 10:30 04/09/23 11:10 Lorazepam 2mg/Ml Vial IV 04/09/23 10:31 0.5 mg ONCE ONE Administration Miscellaneous 1 each 04/09/23 10:45 Vancomycin Consult Request NOTAPPLIC 05/09/23 10:44 [facility]ULT [facility] Category Date Time Status XR chest portable Stat Exams 04/09/23 10:31 Completed Brain Natriuretic Peptide Stat Lab 04/09/23 10:30 Completed Complete Blood Count Auto Diff Stat Lab 04/09/23 10:30 Results Comprehensive Metabolic Panel Stat Lab 04/09/23 10:30 Completed Lactic Acid Stat Lab 04/09/23 10:30 Completed Troponin I Q3H Lab 04/09/23 13:45 Ordered Troponin I Q3H Lab 04/09/23 16:45 Ordered Troponin I Stat Lab 04/09/23 10:30 Completed Urinalysis and Microscopic Stat Lab 04/09/23 10:55 Completed Blood Culture Stat Micro 04/09/23 10:30 Ordered Arterial Blood Gas Routine RT 04/09/23 11:15 Received Medical Decision Narrative: 82-year-old male of AF, CAD, type II, A-fib on Eliquis, hypertension, hyperlipidemia and chronic respiratory failure presenting with difficulty himanshu thing. Patient states that this started just before arrival. Associated with hemoptysis. EMS was called. Patient was hypoxemic and tachypneic on arrival and placed on oxygen. Brought to the emergency department. Patient too unstable and uncomfortable to answer questions on arrival. Appears very ill. History obtained via conversation with EMS, patient, family On arrival, patient GCS 12, hemodynamically unstable secondary to respiratory distress, hypoxemic, only answering questions with nods and shakes, moving all extremities spontaneously, pupils equal and reactive to light. Full physical exam performed and significant for diffuse rales, wheezes, increased work of breathing with tachypnea and prolonged expiratory phase with accessory muscle usage. Lower extremity edema. Hypoxemic requiring supplemental oxygen. Differential includes ACS, FL, pneumonia, pneumothorax, IPF, PE, dissection, CHF,. Patient was given BiPAP on arrival, aspirin, DuoNebs, Solu-Medrol, vancomycin, U nasyn for symptomatic management and correction of underlying abnormalities. Workup independently interpreted and significant for leukocytosis 15 with lactate of 4.1. Patient was also mildly hyperkalemic 5.3 with DUANE of creatinine 1.4. Troponin 0.01, BNP elevated 5100. Urinalysis negative. Bedside [id number] ultrasound with diffuse B-lines, but no pneumothorax. Chest x-ray with diffuse pulmonary edema. See radiology read for full review of final results. Independent interpretation of EKG shows atrial fibrillation 114 beats a minute with concern for ST elevations in III. Concern for ST changes in lateral leads with no reciprocal change. Shortly after arrival, family arrived. Stated that he is DNR/DNI after extensive conversation. Comfort measures were taken with fentanyl, Ativan for comfort, and Robinul for secretions. At 12:00 PM, patient lost pulses and time of was called. Given patient presentation, workup, history, this most likely represents cardiac arrest secondary to acute on chronic hypoxemic respiratory failure and cardiogenic shock. Procedures Limited Ultrasound Indication:: Limited lung ultrasound A focused ultrasound exam of the pleural spaces was performed to evaluate for pneumothorax, pulmonary edema, pleural effusion and/or consolidation. The ultrasound was performed with the following indications, as noted in the H&P: Shortness of air Identified structures: Bilateral thoracic cavities were examined. Findings: Lung sliding: -Present B-lines: Present bilaterally Pleural effusion: -Absent bilaterally Consolidation: -Absent left -Absent right Impression: Pulmonary edema with bilateral B-lines Images were saved to permanent archive The study was technically adequate CPT 48184-85 This study was performed by me, and I personally interpreted all images/videos. Based on my clinical judgement, these images were adequate and not necessitate further imaging. Critical Care Critical Care Time Critical Care Time: Yes (CV, resp) Attestation: On 04/09/23, the high probability of a clinically significant, sudden or life threatening deterioration of the following system(s) required my full and direct attention, intervention and personal management. The time I documented below is in addition to time spent performing reported procedures but includes the following listed in this critical care notation. Total Time Total Critical Care Time: 60
[2023-04-09 11:05] LABS: Appearance,Urine CLEAR (Clear); Bilirubin,Urine Negative (Negative); Blood, Urine Negative (Negative); Color,Urine YELLOW (Yellow); Glucose,Urine (UA) Negative (Negative); Ketones,Urine Negative (Negative); Leukocyte Esterase,Urine Negative (Negative); Nitrate,Urine Negative (Negative); Protein,Urine TRACE (Negative); Urobilinogen,Urine 0.2 EU/dl (0.2)
[2023-04-09 11:06] LABS: Alanine Aminotransferase 42 U/L (12-78); Albumin Level 3.2 g/dl (3.5-5.0); Albumin/Globulin Ratio 0.8 (1.1-1.8); Alkaline Phosphatase 112 U/L (38-126); Anion Gap 11.3 mEq/L (5-15); Aspartate Amino Transferase 41 U/L (17-59); Bilirubin,Total 0.7 mg/dl (0.2-1.3); Blood Urea Nitrogen 40 mg/dl (9-20); Calcium 9.1 mg/dl (8.4-10.2); Carbon Dioxide 28 mmol/L (22.0-30.0); Chloride 100 mmol/L (98-107); Estimated Glomerular Filt Rate 48 ml/min (>60); GFR (African American) 59 ML/MIN (>60); Glucose 280 mg/dl (74-100); Potassium 5.3 mmoL/L (3.5-5.1); Sodium 134 mmol/L (136-145); Total Protein,Serum 7.2 g/dl (6.3-8.2)
[2023-04-09] MEDS: FUROSEMIDE 40MG/4ML VIAL 40 MG IV (11:06)
[2023-04-09 11:07] LABS: Lactic Acid 4.1 mmol/L (0.7-2.1)
--- NOTE | 2023-04-09 11:07 | PC.NURSE ---
NAHOMI amin took critical latic of 4.1, repeated and verified and notified DR. Schmitz
[2023-04-09] MEDS: LORazepam 2MG/ML VIAL 0.5 MG IV ×2 (11:10→11:35)
[2023-04-09 11:16] LABS: Creatinine Clearance Estimated 55 mL/min (50-200); MANUAL DIFFERENTIAL MANUAL DIFFERENTIAL (MANUAL DIFF)
[2023-04-09 11:17] LABS: ABG HCO3 22.6 mmhg (22.0-26.0); ABG Oxygen Saturation 78 % (90-100); ABG PCO2 48.6 mmhg (35.0-45.0); ABG PH 7.29 mmol/L (7.35-7.45); ABG PO2 51.7 mmhg (80-100); ABG TCO2 24.1 mmhg (23-27)
[2023-04-09 11:17] LABS: NT Pro Brain Natriuretic Pep. 5130 pg/mL (0-450)
[2023-04-09 11:27] LABS: Troponin I 0.01 ng/ml (0.00-0.034)
--- NOTE | 2023-04-09 11:30 | PC.NURSE ---
pt and daughters all stated that the patient doesnt want to be intubated or have CPR. pt family chose to make him a DNR/DNI at this time. paper signed by pt and provider and placed on chart at this time.
--- NOTE | 2023-04-09 11:30 | PC.NURSE ---
spoke with family with Dr. Schmitz at bedside to speak with family about directives.
[2023-04-09] MEDS: FENTANYL 100MCG/2ML VIAL 12.5 MCG IV (11:31)
--- NOTE | 2023-04-09 11:31 | PC.NURSE ---
pt family asked for pt to have more medication to keep him comfortable. they stated they wanted him to be out of pain if it was his time to go . Dr. Schmitz notified and gave order for fentanyl.
--- NOTE | 2023-04-09 11:31 | PC.NURSE ---
lab at bedside for second set of cultures
[2023-04-09 11:43] LABS: Amorphous Sediment,Urine Trace /lpf; Squamous Epithelial Cell,Urine Occasional #/hpf (0-5)
--- NOTE | 2023-04-09 11:59 | PC.NURSE ---
DR UNDERWOOD AT BEDSIDE
--- NOTE | 2023-04-09 12:14 | P.DN_ITS ---
Pronouncement Note Date and Time of Date of : 04/09/23 Time of : 12:00 PCOD Preliminary cause of : Respiratory failure Contributing Factors (1) Acute on chronic respiratory failure with hypoxemia: (2) Cardiogenic shock: (3) Cardiac arrest: (4) Acute hypokalemia: Additional Data Confirmation of : no pulse, no respirations, no heart sounds and pupils fixed and dilated Family: at bedside Attending/PCP notified?: Yes Attending physician: Nadir Was code activated?: No Autopsy requested?: No light out examiner notified?: Yes Organ bank notified?: Yes Advance directives: No
--- NOTE | 2023-04-09 12:40 | PC.NURSE ---
spoke with Valarie Ferreira at [facility] who released the patient into the care of the home. Case #[id number]
[2023-04-09 13:05] LABS: Oxygen 100 %; Source L FEMORAL; Tidal Volume 18/6; Vent Rate 22
[2023-04-09 13:17] LABS: Lymphocytes % 7 % (10-50); Monocytes % 5 % (2-9); Neutrophils % 68 % (42-76); Total Cells Counted 100
[2023-04-09 13:23] LABS: Platelet Estimate Normal; RBC Morphology Normal
--- NOTE | 2023-04-09 13:31 | PC.NURSE ---
time of called at [address] Schmitz with family at bedside
[2023-04-09 14:49] LABS: Reflex Lactic Add Lactic Reflex
== END 2023-04-09 13:45 | disposition expired ==
PROVIDERS: Emergency Provider Emergency Medicine; PCP Family Medicine
DX: J96.21 Acute and chronic respiratory failure with hypoxia (principal); R57.0 Cardiogenic shock; I46.9 Cardiac arrest, cause unspecified; E87.6 Hypokalemia; J84.10 Pulmonary fibrosis, unspecified; I48.91 Unspecified atrial fibrillation; E11.9 Type 2 diabetes mellitus without complications
CPT/HCPCS: 36415; 71045; 80053; 81001; 82803; 83605; 83880; 84484; 85007; 85025; 87040; 93005; 96365; 96366; 96375; 96376; 99291